=== PATIENT | female | born 1960 | race Asian ===

== ENCOUNTER 2022-06-08 07:33 | Emergency (ER) | payer MEDICARE, MEDICAID ==
[~2022-06-08] VITALS: Ht 152.4 cm; Wt 86.8 kg
[2022-06-08 14:54] VITALS: BP 159/69
[2022-06-10] MEDS ORDERED: CLOZ100T PO (11:38)
[2022-06-10] MEDS ORDERED: POTA-79 PO (11:38)
== END 2022-06-08 14:57 | disposition home or self-care (01) ==
LOC: EMS 07:35
DX: S00.83XA Contusion of other part of head, initial encounter (principal); E11.9 Type 2 diabetes mellitus without complications; Z88.2 Allergy status to sulfonamides; Z88.0 Allergy status to penicillin; Y04.8XXA Assault by other bodily force, initial encounter; Y93.89 Activity, other specified; Y92.89 Other specified places as the place of occurrence of the external cause; Y99.8 Other external cause status
CPT/HCPCS: 70450; 70486; 72125; 99284

== ENCOUNTER 2022-06-10 10:36 | Inpatient (IN) | payer MEDICARE, MEDICAID ==
[~2022-06-10] VITALS: Ht 160 cm; Wt 70.6 kg
[2022-06-10] MEDS ORDERED: DiphenhydrAMINE HCL 50 MG/ML VIAL IM ONE (10:45)
[2022-06-10] MEDS ORDERED: HALOPERIDOL LACTATE 5 MG/ML VIAL IM ONE (10:45)
[2022-06-10] MEDS ORDERED: LORazepam 2 MG/ML VIAL IM ONE (10:45)
[2022-06-10 11:10] LABS: GLUCOSE,POINT OF CARE 148 MG/DL (70-110)
[2022-06-10] MEDS ORDERED: CLOZ100T61 PO (11:38)
[2022-06-10] MEDS ORDERED: METF-1211 PO (11:38)
[2022-06-10] MEDS ORDERED: POTA-364 PO (11:38)
[2022-06-10] MEDS ORDERED: ATOR10TA PO (11:38)
[2022-06-10] MEDS ORDERED: AMLO-257 PO (11:38)
[2022-06-10] MEDS ORDERED: ALPR-705 PO (11:38)
[2022-06-10 12:24] LABS: COVID AG,FIA SOURCE NASOPHARYNGEAL
[2022-06-10 12:47] LABS: SARS-COV2 (COVID) ANTIGEN,FIA Negative (Negative)
[2022-06-10 14:05] LABS: BASOPHILS % (AUTO) 1.4 % (0.0-2.0); HEMATOCRIT 46.1 % (36-46); HEMOGLOBIN 15.1 g/dL (12.0-16.0); LYMPHOCYTES # (AUTO) 2.3 K/uL (1.0-4.8); LYMPHOCYTES % (AUTO) 26.8 % (22.0-44.0); MEAN CORPUSCULAR HEMOGLOBIN 29.3 pg (26.0-34.0); MEAN CORPUSCULAR HGB CONC 32.7 G/dL (31.0-37.0); MEAN CORPUSCULAR VOLUME 89 fL (80-100); MONOCYTES # (AUTO) 0.7 K/uL (0.1-1.0); MONOCYTES % (AUTO) 7.9 % (2.0-9.0); NEUTROPHILS # (AUTO) 5.3 K/uL (1.8-7.7); NEUTROPHILS % (AUTO) 62.9 % (40.0-70.0); PLATELET COUNT (AUTO) 201 K/uL (150-450); RED BLOOD CELL COUNT(AUTO) 5.16 MIL/uL (4.00-5.20); RED CELL DISTRIBUTION WIDTH 14.6 % (11.5-14.5); WHITE BLOOD COUNT (AUTO) 8.5 K/uL (4.5-11.0)
[2022-06-10 14:12] LABS: ANION GAP 12 mmol/L (8-16); CALCIUM, TOTAL 9.7 mg/dL (8.8-10.5); CARBON DIOXIDE 26 mmol/L (22-29); CHLORIDE 105 mmol/L (98-107); CREATININE 0.74 mg/dL (0.60-1.30); GLOMERULAR FILTR. RATE CALC > 60 mL/min (>60); GLUCOSE,RANDOM 135 mg/dL (70-110); POTASSIUM 3.3 mmol/L (3.5-5.1); SODIUM SERUM 143 mmol/L (136-145); UREA NITROGEN, BLOOD 13 mg/dL (7-18)
[2022-06-10 14:17] LABS: ALCOHOL, BLOOD (SERUM) < 3 mg/dL (0-10)
[2022-06-10 14:26] LABS: ALANINE AMINOTRANSFERASE 55 U/L (12-78); ALBUMIN 4.3 g/dL (3.4-5.0); ALKALINE PHOSPHATASE 93 U/L (46-116); ASPARTATE AMINOTRANSFERASE 23 U/L (15-37); BILIRUBIN,TOTAL 0.5 mg/dL (0.1-1.0); THYROID STIMULATING HORMONE 2.96 uIU/mL (0.36-3.74); TOTAL PROTEIN, SERUM 8.2 g/dL (6.4-8.2)
[2022-06-10] MEDS ORDERED: POTASSIUM CHLORIDE 20 MEQ ER TABLET PO ONE (15:15)
[2022-06-11 15:38] LABS: APPEARANCE,URINE CLEAR (CLEAR); BILIRUBIN,URINE NEGATIVE (NEGATIVE); COLOR,URINE LIGHT YELLOW (YELLOW); GLUCOSE, URINE (UA) TRACE mg/dL (NEGATIVE); LEUKOCYTE ESTERASE ,URINE NEGATIVE (NEGATIVE); NITRATE,URINE NEGATIVE (NEGATIVE); OCCULT BLOOD,URINE NEGATIVE (NEGATIVE); PH,URINE 6.5 (5.0-8.0); PH,URINE DRUG SCREEN 6.5 (5.0-8.0); PROTEIN,URINE 30-70 mg/dL (NEGATIVE); SPECIFIC GRAVITIY, URINE 1.013 (1.003-1.030); UROBILINOGEN,URINE <=1.0 mg/dL (<=1.0)
[2022-06-11 15:43] LABS: BACTERIA,URINE None Seen /HPF (None Seen); RBC,URINE None Seen /HPF (0-2); WBC,URINE None Seen /HPF (0-5)
[2022-06-11 15:45] LABS: ALCOHOL, URINE DRUG SCREEN NEGATIVE (NEGATIVE); AMPHET/METH SCREEN,URINE NEGATIVE (NEGATIVE); BARBITURATE SCREEN, URINE NEGATIVE (NEGATIVE); BENZODIAZEPINES SCREEN,URINE NEGATIVE (NEGATIVE); CANNABINOID SCREEN,URINE NEGATIVE (NEGATIVE); COCAINE SCREEN,URINE NEGATIVE (NEGATIVE); METHADONE SCREEN, URINE NEGATIVE (NEGATIVE); OPIATE SCREEN,URINE NEGATIVE (NEGATIVE); PHENCYCLIDINE SCREEN,URINE NEGATIVE (NEGATIVE)
[2022-06-11 20:23] VITALS: RESP 20
[2022-06-12 05:40] VITALS: RESP 20
[2022-06-12] MEDS: LORazepam 2 MG TABLET PO PRN (06:12)
[2022-06-12] MEDS: HALOPERIDOL 5 MG TABLET PO PRN (06:12)
[2022-06-12 08:21] VITALS: BP 131/74; PULSE 82; RESP 18; TEMP 98.1
[2022-06-12 12:34] VITALS: TEMP 97.5
[2022-06-12] MEDS ORDERED: MAG HYDROX/AL HYDROX/SIMETH ES 30 ML SUSPENSION UDCUP PO PRN (13:30)
[2022-06-12] MEDS ORDERED: GuaiFENesin/D-METHORPHAN [SUGAR-FREE] 200-20MG/10 ML SYRUP UDCUP PO PRN (13:30)
[2022-06-12] MEDS ORDERED: PETROLATUM,WHITE 28 GM JELLY TP PRN (13:30)
[2022-06-12] MEDS ORDERED: IBUPROFEN 400 MG TABLET PO PRN (13:30)
[2022-06-12] MEDS ORDERED: DOCUSATE SODIUM 100 MG CAPSULE PO PRN (13:30)
[2022-06-12] MEDS ORDERED: ALBUTEROL SULFATE HFA 90 MCG/PUFF 8 GM INHALER IH PRN (13:30)
[2022-06-12] MEDS ORDERED: LOPERAMIDE HCL 2 MG CAPSULE PO PRN (13:30)
[2022-06-12] MEDS ORDERED: ONDANSETRON HCL 4 MG TABLET PO PRN (13:30)
[2022-06-12] MEDS ORDERED: NICOTINE 14 MG/24 HOUR PATCH TD PRN (13:30)
[2022-06-12 16:02] VITALS: BP 129/88; PULSE 88; RESP 18; TEMP 97
[2022-06-12 16:15] VITALS: BP 129/88; PULSE 88; RESP 18; TEMP 97
[2022-06-12] MEDS: MetFORMIN HCL 500 MG TABLET PO SCH ×2 (17:11→17:24)
[2022-06-12 20:20] VITALS: RESP 18; TEMP 98
[2022-06-12] MEDS: RisperiDONE 2 MG TABLET PO SCH (21:00)
[2022-06-13 00:33] VITALS: RESP 18
[2022-06-13 05:08] VITALS: RESP 18; TEMP 98.2
[2022-06-13] MEDS: MetFORMIN HCL 500 MG TABLET PO SCH ×2 (07:16→17:30)
[2022-06-13 08:15] VITALS: BP 158/92; PULSE 85; RESP 18; TEMP 97.6
[2022-06-13] MEDS: AmLODIPine BESYLATE 5 MG TABLET PO SCH (09:20)
[2022-06-13] MEDS: ATORVASTATIN CALCIUM 10 MG TABLET PO SCH (09:20)
[2022-06-13] MEDS: RisperiDONE 2 MG TABLET PO SCH ×2 (09:20→21:10)
[2022-06-13 12:15] VITALS: TEMP 97.4
[2022-06-13 17:14] VITALS: BP 142/69; PULSE 82; RESP 17; TEMP 97.9
[2022-06-13 20:22] VITALS: BP 143/81; PULSE 84; RESP 18; TEMP 97.3
[2022-06-14] VITALS (9 sets, daily range): BP systolic 135; BP diastolic 80; PULSE 88; RESP 17–20; TEMP 97.8–98
[2022-06-14] MEDS ORDERED: HALOPERIDOL LACTATE 5 MG/ML VIAL IM ONE (02:00)
[2022-06-14] MEDS ORDERED: DiphenhydrAMINE HCL 50 MG/ML VIAL IM ONE (02:00)
[2022-06-14] MEDS ORDERED: LORazepam 2 MG/ML VIAL IM ONE (02:00)
[2022-06-14] MEDS: MetFORMIN HCL 500 MG TABLET PO SCH ×2 (06:57→16:26)
[2022-06-14] MEDS: AmLODIPine BESYLATE 5 MG TABLET PO SCH (09:00)
[2022-06-14] MEDS: ATORVASTATIN CALCIUM 10 MG TABLET PO SCH (09:00)
[2022-06-14] MEDS: RisperiDONE 2 MG TABLET PO SCH ×2 (09:00→21:00)
[2022-06-15 00:39] VITALS: RESP 20
[2022-06-15 04:23] VITALS: RESP 18
[2022-06-15] MEDS: MetFORMIN HCL 500 MG TABLET PO SCH ×2 (06:43→16:42)
[2022-06-15 08:25] VITALS: PULSE 65; RESP 17; TEMP 97.8
[2022-06-15] MEDS: RisperiDONE 2 MG TABLET PO SCH ×2 (08:31→20:24)
[2022-06-15] MEDS: AmLODIPine BESYLATE 5 MG TABLET PO SCH (08:31)
[2022-06-15] MEDS: ATORVASTATIN CALCIUM 10 MG TABLET PO SCH (08:31)
[2022-06-15 12:07] VITALS: RESP 18; TEMP 97.6
[2022-06-15 16:08] VITALS: RESP 17
[2022-06-15 20:27] VITALS: RESP 20
[2022-06-16] VITALS (7 sets, daily range): BP systolic 132; BP diastolic 78; PULSE 82; RESP 17–22; TEMP 97.8–98.3
[2022-06-16] MEDS ORDERED: LORazepam 2 MG/ML VIAL IM ONE (03:15)
[2022-06-16] MEDS ORDERED: DiphenhydrAMINE HCL 50 MG/ML VIAL IM ONE (03:15)
[2022-06-16] MEDS ORDERED: HALOPERIDOL LACTATE 5 MG/ML VIAL IM ONE (03:15)
[2022-06-16] MEDS: MetFORMIN HCL 500 MG TABLET PO SCH ×2 (07:30→16:10)
[2022-06-16 07:50] LABS: COVID AG,FIA SOURCE NASOPHARYNGEAL
[2022-06-16 08:26] LABS: SARS-COV2 (COVID) ANTIGEN,FIA Negative (Negative)
[2022-06-16] MEDS: AmLODIPine BESYLATE 5 MG TABLET PO SCH (09:00)
[2022-06-16] MEDS: ATORVASTATIN CALCIUM 10 MG TABLET PO SCH (09:00)
[2022-06-16] MEDS: RisperiDONE 2 MG TABLET PO SCH ×2 (09:00→20:31)
[2022-06-17 04:26] VITALS: RESP 18
[2022-06-17] MEDS: MetFORMIN HCL 500 MG TABLET PO SCH ×3 (06:40→16:47)
[2022-06-17] MEDS: RisperiDONE 2 MG TABLET PO SCH ×3 (08:22→21:00)
[2022-06-17] MEDS: ATORVASTATIN CALCIUM 10 MG TABLET PO SCH ×2 (08:22→09:00)
[2022-06-17] MEDS: AmLODIPine BESYLATE 5 MG TABLET PO SCH ×2 (08:22→09:00)
[2022-06-17 09:05] VITALS: RESP 18; TEMP 97.6
[2022-06-17 13:03] VITALS: RESP 16; TEMP 98
[2022-06-17 16:02] VITALS: RESP 18
[2022-06-17 20:24] VITALS: RESP 18; TEMP 98.5
[2022-06-18 00:44] VITALS: RESP 18
[2022-06-18 04:38] VITALS: RESP 18
[2022-06-18] MEDS: MetFORMIN HCL 500 MG TABLET PO SCH ×2 (06:53→17:30)
[2022-06-18] MEDS ORDERED: DiphenhydrAMINE HCL 50 MG/ML VIAL IM ONE (08:30)
[2022-06-18] MEDS ORDERED: HALOPERIDOL LACTATE 5 MG/ML VIAL IM ONE (08:30)
[2022-06-18] MEDS ORDERED: LORazepam 2 MG/ML VIAL IM ONE (08:30)
[2022-06-18 08:54] VITALS: BP 148/82; PULSE 98; RESP 18; TEMP 97.8
[2022-06-18] MEDS: RisperiDONE 2 MG TABLET PO SCH ×2 (08:56→20:12)
[2022-06-18] MEDS: AmLODIPine BESYLATE 5 MG TABLET PO SCH (08:56)
[2022-06-18] MEDS: ATORVASTATIN CALCIUM 10 MG TABLET PO SCH (08:56)
[2022-06-18 12:41] VITALS: TEMP 97.6
[2022-06-18 16:18] VITALS: BP 123/72; PULSE 73; RESP 17; TEMP 97.3
[2022-06-18 20:28] VITALS: RESP 20
[2022-06-19 01:26] VITALS: RESP 20
[2022-06-19 04:06] VITALS: RESP 20
[2022-06-19] MEDS: MetFORMIN HCL 500 MG TABLET PO SCH ×2 (07:30→17:26)
[2022-06-19 08:37] VITALS: BP 157/96; PULSE 65; RESP 18; TEMP 97.8
[2022-06-19] MEDS: AmLODIPine BESYLATE 5 MG TABLET PO SCH (08:45)
[2022-06-19] MEDS: RisperiDONE 2 MG TABLET PO SCH ×2 (08:45→21:00)
[2022-06-19] MEDS: ATORVASTATIN CALCIUM 10 MG TABLET PO SCH (08:45)
[2022-06-19 12:20] VITALS: TEMP 98
[2022-06-19] MEDS ORDERED: DiphenhydrAMINE HCL 50 MG/ML VIAL IM ONE (15:45)
[2022-06-19] MEDS ORDERED: HALOPERIDOL LACTATE 5 MG/ML VIAL IM ONE (15:45)
[2022-06-19] MEDS ORDERED: LORazepam 2 MG/ML VIAL IM ONE (15:45)
[2022-06-19 20:23] VITALS: BP 141/77; PULSE 82; RESP 20; TEMP 97.9
[2022-06-20 00:08] VITALS: RESP 18
[2022-06-20 04:01] VITALS: RESP 18
[2022-06-20] MEDS: MetFORMIN HCL 500 MG TABLET PO SCH ×2 (07:30→16:08)
[2022-06-20] MEDS: AmLODIPine BESYLATE 5 MG TABLET PO SCH (08:05)
[2022-06-20] MEDS: RisperiDONE 2 MG TABLET PO SCH ×2 (08:05→20:19)
[2022-06-20] MEDS: ATORVASTATIN CALCIUM 10 MG TABLET PO SCH (08:05)
[2022-06-20 12:55] VITALS: RESP 17; TEMP 97.8
[2022-06-20] MEDS ORDERED: RisperiDONE 2 MG TABLET PO ONE (14:15)
[2022-06-20] MEDS: HALOPERIDOL LACTATE 5 MG/ML VIAL IM PRN ×2 (14:31→20:20)
[2022-06-20 16:09] VITALS: RESP 17; TEMP 98
[2022-06-20 21:08] VITALS: TEMP 98
[2022-06-21] VITALS (8 sets, daily range): BP systolic 114–155; BP diastolic 74–90; PULSE 98–125; RESP 18–20; TEMP 97.6–98.5; O2SAT 98
[2022-06-21] MEDS: MetFORMIN HCL 500 MG TABLET PO SCH ×2 (06:39→17:56)
[2022-06-21] MEDS: ATORVASTATIN CALCIUM 10 MG TABLET PO SCH ×2 (08:46→09:44)
[2022-06-21] MEDS: RisperiDONE 2 MG TABLET PO SCH ×2 (08:46→20:56)
[2022-06-21] MEDS: AmLODIPine BESYLATE 5 MG TABLET PO SCH (08:46)
[2022-06-21] MEDS: HALOPERIDOL 5 MG TABLET PO PRN (09:28)
[2022-06-21] MEDS: HALOPERIDOL LACTATE 5 MG/ML VIAL IM PRN (20:59)
[2022-06-21] MEDS ORDERED: LORazepam 2 MG/ML VIAL IM ONE (23:45)
[2022-06-21] MEDS ORDERED: DiphenhydrAMINE HCL 50 MG/ML VIAL IM ONE (23:45)
[2022-06-21] MEDS ORDERED: HALOPERIDOL LACTATE 5 MG/ML VIAL IM ONE (23:45)
[2022-06-21] MEDS ORDERED: DiphenhydrAMINE HCL 50 MG/ML VIAL ONE (23:48)
[2022-06-21] MEDS ORDERED: LORazepam 2 MG/ML VIAL ONE (23:48)
[2022-06-22] MEDS: MetFORMIN HCL 500 MG TABLET PO SCH ×2 (06:37→17:30)
[2022-06-22 08:04] VITALS: BP 143/78; PULSE 79; RESP 18; TEMP 97.4
[2022-06-22] MEDS: AmLODIPine BESYLATE 5 MG TABLET PO SCH (08:15)
[2022-06-22] MEDS: RisperiDONE 2 MG TABLET PO SCH ×2 (08:16→21:07)
[2022-06-22] MEDS: ATORVASTATIN CALCIUM 10 MG TABLET PO SCH (08:16)
[2022-06-22 09:19] VITALS: BP 143/78; PULSE 81; TEMP 97.4; O2SAT 16
[2022-06-23] MEDS: MetFORMIN HCL 500 MG TABLET PO SCH ×2 (06:36→17:30)
[2022-06-23 08:05] VITALS: BP 144/59; PULSE 81; RESP 18; TEMP 97.1
[2022-06-23] MEDS: RisperiDONE 2 MG TABLET PO SCH ×2 (08:27→20:19)
[2022-06-23] MEDS: AmLODIPine BESYLATE 5 MG TABLET PO SCH (08:27)
[2022-06-23] MEDS: ATORVASTATIN CALCIUM 10 MG TABLET PO SCH (08:27)
[2022-06-23] MEDS: HALOPERIDOL LACTATE 5 MG/ML VIAL IM PRN (20:19)
[2022-06-23 22:38] VITALS: RESP 20
[2022-06-24] MEDS: MetFORMIN HCL 500 MG TABLET PO SCH ×2 (06:42→17:29)
[2022-06-24 08:09] VITALS: BP 164/94; PULSE 86; RESP 18; TEMP 97.1
[2022-06-24] MEDS: ATORVASTATIN CALCIUM 10 MG TABLET PO SCH (08:17)
[2022-06-24] MEDS: AmLODIPine BESYLATE 5 MG TABLET PO SCH (08:17)
[2022-06-24] MEDS: RisperiDONE 2 MG TABLET PO SCH ×2 (08:17→20:52)
[2022-06-24 15:42] LABS: GLUCOMETER DEV NAME(LOC) 3EX.2; GLUCOSE,POINT OF CARE 180 MG/DL (70-110)
[2022-06-24 16:53] LABS: BASOPHILS % (AUTO) 0.5 % (0.0-2.0); EOSINOPHILS % (AUTO) 0.3 % (1.0-6.0); HEMATOCRIT 42.8 % (36-46); HEMOGLOBIN 13.9 g/dL (12.0-16.0); MEAN CORPUSCULAR HEMOGLOBIN 29.1 pg (26.0-34.0); MEAN CORPUSCULAR HGB CONC 32.5 G/dL (31.0-37.0); MEAN CORPUSCULAR VOLUME 90 fL (80-100); MONOCYTES # (AUTO) 0.5 K/uL (0.1-1.0); MONOCYTES % (AUTO) 6.7 % (2.0-9.0); NEUTROPHILS # (AUTO) 6.1 K/uL (1.8-7.7); NEUTROPHILS % (AUTO) 79.5 % (40.0-70.0); PLATELET COUNT (AUTO) 211 K/uL (150-450); RED BLOOD CELL COUNT(AUTO) 4.77 MIL/uL (4.00-5.20); RED CELL DISTRIBUTION WIDTH 14.7 % (11.5-14.5); WHITE BLOOD COUNT (AUTO) 7.6 K/uL (4.5-11.0)
[2022-06-24 17:04] LABS: ANION GAP 15 mmol/L (8-16); CALCIUM, TOTAL 8.8 mg/dL (8.8-10.5); CARBON DIOXIDE 23 mmol/L (22-29); CHLORIDE 100 mmol/L (98-107); CREATININE 0.92 mg/dL (0.60-1.30); GLOMERULAR FILTR. RATE CALC > 60 mL/min (>60); GLUCOSE,RANDOM 307 mg/dL (70-110); POTASSIUM 3.1 mmol/L (3.5-5.1); SODIUM SERUM 138 mmol/L (136-145); UREA NITROGEN, BLOOD 8 mg/dL (7-18)
[2022-06-24 17:08] LABS: APPEARANCE,URINE HAZY (CLEAR); BILIRUBIN,URINE NEGATIVE (NEGATIVE); COLOR,URINE LIGHT YELLOW (YELLOW); GLUCOSE, URINE (UA) >=1000 mg/dL (NEGATIVE); KETONES,URINE 40-60 mg/dL (NEGATIVE); LEUKOCYTE ESTERASE ,URINE LARGE (NEGATIVE); NITRATE,URINE NEGATIVE (NEGATIVE); OCCULT BLOOD,URINE NEGATIVE (NEGATIVE); PROTEIN,URINE 100-200,SEE CONFIRM mg/dL (NEGATIVE); SPECIFIC GRAVITIY, URINE 1.009 (1.003-1.030); UROBILINOGEN,URINE <=1.0 mg/dL (<=1.0)
[2022-06-24 17:14] LABS: ALANINE AMINOTRANSFERASE 62 U/L (12-78); ALBUMIN 3.5 g/dL (3.4-5.0); ALKALINE PHOSPHATASE 94 U/L (46-116); ASPARTATE AMINOTRANSFERASE 40 U/L (15-37); BILIRUBIN,TOTAL 0.6 mg/dL (0.1-1.0); TOTAL PROTEIN, SERUM 7.2 g/dL (6.4-8.2)
[2022-06-24 17:42] LABS: GLUCOMETER DEV NAME(LOC) 3EX.2; GLUCOSE,POINT OF CARE 281 MG/DL (70-110)
[2022-06-24 17:53] LABS: BACTERIA,URINE Many /HPF (None Seen); RBC,URINE 0-2 /HPF (0-2); SQUAMOUS EPITHELIAL CELL,UR Moderate /LPF (None Seen); SULFOSALICYLIC ACID,URINE 3+ (Negative); WBC,URINE 26-50 /HPF (0-5)
[2022-06-24] MEDS: NYSTATIN 30 GM CREAM TP SCH (18:26)
[2022-06-24] MEDS: POTASSIUM CHLORIDE 20 MEQ ER TABLET PO ONE ×3 (18:38→18:55)
[2022-06-24] MEDS: LEVOFLOXACIN 500 MG TABLET PO SCH (18:45)
[2022-06-24 21:00] VITALS: RESP 18
[2022-06-24] MEDS: HALOPERIDOL LACTATE 5 MG/ML VIAL IM PRN (21:00)
[2022-06-25] MEDS: MetFORMIN HCL 500 MG TABLET PO SCH ×2 (06:54→17:30)
[2022-06-25] MEDS: AmLODIPine BESYLATE 5 MG TABLET PO SCH (07:56)
[2022-06-25] MEDS: NYSTATIN 30 GM CREAM TP SCH ×2 (07:56→17:25)
[2022-06-25] MEDS: ATORVASTATIN CALCIUM 10 MG TABLET PO SCH (07:56)
[2022-06-25] MEDS: RisperiDONE 2 MG TABLET PO SCH ×2 (07:56→20:45)
[2022-06-25] MEDS: HALOPERIDOL LACTATE 5 MG/ML VIAL IM PRN ×2 (07:58→20:49)
[2022-06-25 08:04] VITALS: TEMP 98
[2022-06-25] MEDS: LEVOFLOXACIN 500 MG TABLET PO SCH (08:54)
[2022-06-25 17:26] LABS: GLUCOMETER DEV NAME(LOC) 3EX.2; GLUCOSE,POINT OF CARE 114 MG/DL (70-110)
[2022-06-25 20:31] VITALS: RESP 18; TEMP 98
[2022-06-26] MEDS: MetFORMIN HCL 500 MG TABLET PO SCH ×2 (06:39→17:30)
[2022-06-26 07:06] LABS: GLUCOMETER DEV NAME(LOC) 3EX.2; GLUCOSE,POINT OF CARE 180 MG/DL (70-110)
[2022-06-26 08:25] VITALS: BP 150/99; PULSE 80; RESP 17; TEMP 97.6
[2022-06-26] MEDS: RisperiDONE 2 MG TABLET PO SCH ×2 (15:38→20:28)
[2022-06-26] MEDS: ATORVASTATIN CALCIUM 10 MG TABLET PO SCH (15:39)
[2022-06-26] MEDS: AmLODIPine BESYLATE 5 MG TABLET PO SCH (15:39)
[2022-06-26] MEDS: NYSTATIN 30 GM CREAM TP SCH ×2 (15:47→18:21)
[2022-06-26] MEDS: LEVOFLOXACIN 500 MG TABLET PO SCH (15:48)
[2022-06-26 19:01] LABS: GLUCOMETER DEV NAME(LOC) 3EX.2; GLUCOSE,POINT OF CARE 138 MG/DL (70-110)
[2022-06-26] MEDS: HALOPERIDOL LACTATE 5 MG/ML VIAL IM PRN (20:35)
[2022-06-26 20:42] VITALS: BP 130/85; PULSE 80; RESP 18; TEMP 98
[2022-06-27] MEDS: MetFORMIN HCL 500 MG TABLET PO SCH ×2 (06:39→17:24)
[2022-06-27 07:21] LABS: GLUCOMETER DEV NAME(LOC) 3EX.2; GLUCOSE,POINT OF CARE 140 MG/DL (70-110)
[2022-06-27 08:17] VITALS: BP 157/74; PULSE 86; RESP 17; TEMP 98.1
[2022-06-27] MEDS: AmLODIPine BESYLATE 5 MG TABLET PO SCH (09:00)
[2022-06-27] MEDS: NYSTATIN 30 GM CREAM TP SCH ×2 (09:00→17:15)
[2022-06-27] MEDS: LEVOFLOXACIN 500 MG TABLET PO SCH (09:00)
[2022-06-27] MEDS: ATORVASTATIN CALCIUM 10 MG TABLET PO SCH (09:00)
[2022-06-27] MEDS: RisperiDONE 2 MG TABLET PO SCH ×2 (09:00→21:00)
[2022-06-27 17:41] LABS: GLUCOMETER DEV NAME(LOC) 3EX.2; GLUCOSE,POINT OF CARE 121 MG/DL (70-110)
[2022-06-28 05:56] LABS: GLUCOMETER DEV NAME(LOC) 3EX.2; GLUCOSE,POINT OF CARE 146 MG/DL (70-110)
[2022-06-28] MEDS: MetFORMIN HCL 500 MG TABLET PO SCH ×2 (07:01→17:01)
[2022-06-28 08:31] VITALS: BP 130/60; PULSE 77; RESP 17; TEMP 97.3
[2022-06-28] MEDS: NYSTATIN 30 GM CREAM TP SCH ×2 (09:00→17:00)
[2022-06-28] MEDS: RisperiDONE 2 MG TABLET PO SCH ×2 (09:00→21:00)
[2022-06-28] MEDS: AmLODIPine BESYLATE 5 MG TABLET PO SCH (09:00)
[2022-06-28] MEDS: ATORVASTATIN CALCIUM 10 MG TABLET PO SCH (09:00)
[2022-06-28] MEDS: LEVOFLOXACIN 500 MG TABLET PO SCH (09:00)
[2022-06-28 20:19] VITALS: RESP 20
[2022-06-28 21:06] LABS: GLUCOMETER DEV NAME(LOC) 3EX.2; GLUCOSE,POINT OF CARE 139 MG/DL (70-110)
[2022-06-29] MEDS: MetFORMIN HCL 500 MG TABLET PO SCH ×2 (07:04→17:30)
[2022-06-29 08:55] VITALS: BP 167/87; PULSE 100; RESP 17; TEMP 98
[2022-06-29] MEDS: ATORVASTATIN CALCIUM 10 MG TABLET PO SCH (09:00)
[2022-06-29] MEDS: AmLODIPine BESYLATE 5 MG TABLET PO SCH (09:00)
[2022-06-29] MEDS: NYSTATIN 30 GM CREAM TP SCH ×3 (09:00→18:06)
[2022-06-29] MEDS: RisperiDONE 2 MG TABLET PO SCH ×2 (09:00→20:54)
[2022-06-29] MEDS: LEVOFLOXACIN 500 MG TABLET PO SCH (09:00)
[2022-06-29 17:51] LABS: GLUCOMETER DEV NAME(LOC) 3E.C; GLUCOSE,POINT OF CARE 108 MG/DL (70-110)
[2022-06-29 20:53] VITALS: RESP 18
[2022-06-30] MEDS: MetFORMIN HCL 500 MG TABLET PO SCH ×2 (06:41→17:30)
[2022-06-30] MEDS: ATORVASTATIN CALCIUM 10 MG TABLET PO SCH (08:08)
[2022-06-30] MEDS: AmLODIPine BESYLATE 5 MG TABLET PO SCH (08:08)
[2022-06-30] MEDS: NYSTATIN 30 GM CREAM TP SCH ×2 (08:09→17:15)
[2022-06-30] MEDS: RisperiDONE 2 MG TABLET PO SCH ×2 (08:09→21:00)
[2022-06-30 08:37] VITALS: BP 172/76; PULSE 75; RESP 17; TEMP 97.6
[2022-06-30] MEDS ORDERED: HALOPERIDOL LACTATE 5 MG/ML VIAL IM ONE (22:00)
[2022-06-30] MEDS ORDERED: DiphenhydrAMINE HCL 50 MG/ML VIAL IM ONE (22:00)
[2022-06-30] MEDS ORDERED: LORazepam 2 MG/ML VIAL IM ONE (22:00)
[2022-06-30 22:26] VITALS: RESP 20
[2022-07-01] MEDS: MetFORMIN HCL 500 MG TABLET PO SCH ×2 (07:04→17:30)
[2022-07-01] MEDS: NYSTATIN 30 GM CREAM TP SCH ×2 (08:17→17:00)
[2022-07-01] MEDS: RisperiDONE 2 MG TABLET PO SCH ×2 (08:17→21:00)
[2022-07-01] MEDS: ATORVASTATIN CALCIUM 10 MG TABLET PO SCH (08:17)
[2022-07-01] MEDS: AmLODIPine BESYLATE 5 MG TABLET PO SCH (08:17)
[2022-07-01 09:09] VITALS: BP 156/80; PULSE 75; RESP 18; TEMP 98.2
[2022-07-01 20:37] VITALS: BP 155/81; PULSE 87; RESP 18; TEMP 97.7
[2022-07-02] MEDS: MetFORMIN HCL 500 MG TABLET PO SCH ×2 (07:30→17:23)
[2022-07-02 08:29] VITALS: BP 168/73; PULSE 75; RESP 18; TEMP 98
[2022-07-02] MEDS: AmLODIPine BESYLATE 5 MG TABLET PO SCH (08:58)
[2022-07-02] MEDS: ATORVASTATIN CALCIUM 10 MG TABLET PO SCH (08:58)
[2022-07-02] MEDS: RisperiDONE 2 MG TABLET PO SCH ×2 (08:58→21:00)
[2022-07-02] MEDS: NYSTATIN 30 GM CREAM TP SCH ×2 (08:59→16:07)
[2022-07-02 20:55] VITALS: RESP 20
[2022-07-03] MEDS: MetFORMIN HCL 500 MG TABLET PO SCH ×2 (06:48→17:30)
[2022-07-03 08:21] VITALS: BP 150/90; PULSE 99; RESP 17; TEMP 97.9
[2022-07-03] MEDS: RisperiDONE 2 MG TABLET PO SCH ×2 (09:00→20:48)
[2022-07-03] MEDS: AmLODIPine BESYLATE 5 MG TABLET PO SCH (09:00)
[2022-07-03] MEDS: ATORVASTATIN CALCIUM 10 MG TABLET PO SCH (09:00)
[2022-07-03] MEDS ORDERED: LORazepam 2 MG/ML VIAL ONE (09:35)
[2022-07-03] MEDS ORDERED: DiphenhydrAMINE HCL 50 MG/ML VIAL ONE (09:36)
[2022-07-03] MEDS ORDERED: HALOPERIDOL LACTATE 5 MG/ML VIAL ONE (09:36)
[2022-07-03] MEDS ORDERED: DiphenhydrAMINE HCL 50 MG/ML VIAL IM ONE (09:45)
[2022-07-03] MEDS ORDERED: HALOPERIDOL LACTATE 5 MG/ML VIAL IM ONE (09:45)
[2022-07-03] MEDS ORDERED: LORazepam 2 MG/ML VIAL IM ONE (09:45)
[2022-07-03] MEDS: NYSTATIN 30 GM CREAM TP SCH ×2 (12:20→17:00)
[2022-07-03 16:56] LABS: GLUCOMETER DEV NAME(LOC) 3EX.2; GLUCOSE,POINT OF CARE 135 MG/DL (70-110)
[2022-07-03 20:56] VITALS: RESP 20
[2022-07-04] MEDS: MetFORMIN HCL 500 MG TABLET PO SCH ×2 (06:48→17:30)
[2022-07-04 08:01] VITALS: BP 170/84; PULSE 75; RESP 18; TEMP 98
[2022-07-04] MEDS: AmLODIPine BESYLATE 5 MG TABLET PO SCH (08:59)
[2022-07-04] MEDS: RisperiDONE 2 MG TABLET PO SCH ×2 (08:59→20:50)
[2022-07-04] MEDS: ATORVASTATIN CALCIUM 10 MG TABLET PO SCH (08:59)
[2022-07-04] MEDS: NYSTATIN 30 GM CREAM TP SCH ×2 (09:00→17:50)
[2022-07-04] MEDS ORDERED: RisperiDONE 2 MG TABLET PO ONE (12:00)
[2022-07-04] MEDS: HALOPERIDOL LACTATE 5 MG/ML VIAL IM PRN ×2 (12:16→20:54)
[2022-07-04 22:05] VITALS: BP 138/78; PULSE 78; RESP 19; TEMP 97.1
[2022-07-05] MEDS: MetFORMIN HCL 500 MG TABLET PO SCH ×2 (06:48→17:30)
[2022-07-05 08:10] VITALS: BP 157/81; PULSE 86; RESP 18; TEMP 97.2
[2022-07-05] MEDS: RisperiDONE 2 MG TABLET PO SCH ×2 (08:20→21:00)
[2022-07-05] MEDS: ATORVASTATIN CALCIUM 10 MG TABLET PO SCH (08:20)
[2022-07-05] MEDS: AmLODIPine BESYLATE 5 MG TABLET PO SCH (08:20)
[2022-07-05] MEDS: HALOPERIDOL LACTATE 5 MG/ML VIAL IM PRN ×2 (08:23→21:27)
[2022-07-05] MEDS: NYSTATIN 30 GM CREAM TP SCH ×2 (08:23→16:34)
[2022-07-05 13:27] LABS: GLUCOMETER DEV NAME(LOC) 3EX.2; GLUCOSE,POINT OF CARE 199 MG/DL (70-110)
[2022-07-05 16:36] LABS: GLUCOMETER DEV NAME(LOC) 3EX.2; GLUCOSE,POINT OF CARE 132 MG/DL (70-110)
[2022-07-05 20:57] VITALS: BP 131/77; PULSE 82; RESP 18; TEMP 97.9
[2022-07-06] MEDS: MetFORMIN HCL 500 MG TABLET PO SCH ×2 (06:46→17:29)
[2022-07-06] MEDS: RisperiDONE 2 MG TABLET PO SCH ×2 (09:00→20:35)
[2022-07-06] MEDS: AmLODIPine BESYLATE 5 MG TABLET PO SCH (09:00)
[2022-07-06] MEDS: ATORVASTATIN CALCIUM 10 MG TABLET PO SCH (09:00)
[2022-07-06] MEDS: NYSTATIN 30 GM CREAM TP SCH ×2 (09:48→17:00)
[2022-07-06 09:49] VITALS: BP 160/77; PULSE 96; RESP 18; TEMP 97.8
[2022-07-06] MEDS: HALOPERIDOL LACTATE 5 MG/ML VIAL IM PRN ×2 (09:50→20:45)
[2022-07-06 20:10] VITALS: BP 142/86; PULSE 88; RESP 20; TEMP 97.3
[2022-07-07] MEDS: MetFORMIN HCL 500 MG TABLET PO SCH ×2 (06:11→17:30)
[2022-07-07] MEDS: AmLODIPine BESYLATE 5 MG TABLET PO SCH ×2 (09:00→12:14)
[2022-07-07] MEDS: RisperiDONE 2 MG TABLET PO SCH ×2 (09:00→21:00)
[2022-07-07] MEDS: ATORVASTATIN CALCIUM 10 MG TABLET PO SCH (09:00)
[2022-07-07] MEDS: HALOPERIDOL LACTATE 5 MG/ML VIAL IM PRN ×2 (09:27→21:20)
[2022-07-07] MEDS: NYSTATIN 30 GM CREAM TP SCH ×2 (09:36→17:33)
[2022-07-07 12:14] VITALS: BP 189/85; PULSE 123; RESP 16; TEMP 97.6
[2022-07-07] MEDS: CloNIDine HCL 0.1 MG TABLET PO PRN (12:14)
[2022-07-07 13:00] VITALS: BP 187/82
[2022-07-07 15:00] VITALS: BP 155/83; RESP 17
[2022-07-07 15:41] LABS: GLUCOMETER DEV NAME(LOC) 3EX.2; GLUCOSE,POINT OF CARE 147 MG/DL (70-110)
[2022-07-07 17:53] VITALS: BP 149/95; PULSE 87; RESP 16
[2022-07-07 20:25] VITALS: BP 157/75; PULSE 78; RESP 18; TEMP 97.5
[2022-07-08 06:22] VITALS: BP 139/74; PULSE 70; RESP 18
[2022-07-08 06:36] LABS: GLUCOMETER DEV NAME(LOC) 3EX.2; GLUCOSE,POINT OF CARE 153 MG/DL (70-110)
[2022-07-08] MEDS: MetFORMIN HCL 500 MG TABLET PO SCH ×2 (06:39→17:17)
[2022-07-08 08:49] VITALS: BP 147/77; PULSE 76; RESP 18; TEMP 97.7
[2022-07-08] MEDS: ATORVASTATIN CALCIUM 10 MG TABLET PO SCH (08:52)
[2022-07-08] MEDS: NYSTATIN 30 GM CREAM TP SCH (08:52)
[2022-07-08] MEDS: RisperiDONE 2 MG TABLET PO SCH ×2 (08:52→20:37)
[2022-07-08] MEDS: AmLODIPine BESYLATE 5 MG TABLET PO SCH (08:52)
[2022-07-08] MEDS: HALOPERIDOL LACTATE 5 MG/ML VIAL IM PRN ×2 (09:51→20:43)
[2022-07-08 16:56] LABS: GLUCOMETER DEV NAME(LOC) 3EX.2; GLUCOSE,POINT OF CARE 119 MG/DL (70-110)
[2022-07-08 20:17] VITALS: RESP 20
[2022-07-09 06:21] LABS: GLUCOMETER DEV NAME(LOC) 3EX.2; GLUCOSE,POINT OF CARE 140 MG/DL (70-110)
[2022-07-09] MEDS: MetFORMIN HCL 500 MG TABLET PO SCH ×2 (07:30→17:30)
[2022-07-09 08:20] VITALS: BP 151/66; PULSE 91; RESP 18; TEMP 98.2
[2022-07-09] MEDS: RisperiDONE 2 MG TABLET PO SCH ×2 (08:30→20:48)
[2022-07-09] MEDS: ATORVASTATIN CALCIUM 10 MG TABLET PO SCH (08:30)
[2022-07-09] MEDS: HALOPERIDOL LACTATE 5 MG/ML VIAL IM PRN ×2 (08:43→21:21)
[2022-07-09] MEDS: AmLODIPine BESYLATE 5 MG TABLET PO SCH (08:45)
[2022-07-09 16:26] LABS: GLUCOMETER DEV NAME(LOC) 3EX.2; GLUCOSE,POINT OF CARE 119 MG/DL (70-110)
[2022-07-09 20:16] VITALS: RESP 20
[2022-07-10 06:26] LABS: GLUCOMETER DEV NAME(LOC) 3EX.2; GLUCOSE,POINT OF CARE 141 MG/DL (70-110)
[2022-07-10] MEDS: MetFORMIN HCL 500 MG TABLET PO SCH ×2 (07:05→16:37)
[2022-07-10 08:10] VITALS: BP 126/66; PULSE 73; RESP 17; TEMP 97.6
[2022-07-10] MEDS: HALOPERIDOL LACTATE 5 MG/ML VIAL IM PRN ×2 (08:56→20:40)
[2022-07-10] MEDS: AmLODIPine BESYLATE 5 MG TABLET PO SCH (09:00)
[2022-07-10] MEDS: RisperiDONE 2 MG TABLET PO SCH ×2 (09:00→20:35)
[2022-07-10] MEDS: ATORVASTATIN CALCIUM 10 MG TABLET PO SCH (09:00)
[2022-07-10 17:16] LABS: GLUCOMETER DEV NAME(LOC) 3EX.2; GLUCOSE,POINT OF CARE 184 MG/DL (70-110)
[2022-07-10 21:26] VITALS: BP 130/74; PULSE 75; RESP 17; TEMP 98
[2022-07-11] MEDS: MetFORMIN HCL 500 MG TABLET PO SCH ×2 (06:35→17:30)
[2022-07-11 07:16] LABS: GLUCOMETER DEV NAME(LOC) 3EX.2; GLUCOSE,POINT OF CARE 127 MG/DL (70-110)
[2022-07-11 08:27] VITALS: BP 170/87; PULSE 75; RESP 18; TEMP 97.6
[2022-07-11] MEDS: ATORVASTATIN CALCIUM 10 MG TABLET PO SCH (08:39)
[2022-07-11] MEDS: RisperiDONE 2 MG TABLET PO SCH ×2 (08:39→20:48)
[2022-07-11] MEDS: AmLODIPine BESYLATE 5 MG TABLET PO SCH (08:39)
[2022-07-11] MEDS: HALOPERIDOL LACTATE 5 MG/ML VIAL IM PRN ×2 (08:41→20:51)
[2022-07-11 11:41] LABS: GLUCOMETER DEV NAME(LOC) 3EX.2; GLUCOSE,POINT OF CARE 227 MG/DL (70-110)
[2022-07-11 16:46] LABS: GLUCOMETER DEV NAME(LOC) 3EX.2; GLUCOSE,POINT OF CARE 155 MG/DL (70-110)
[2022-07-11 17:30] VITALS: BP 181/89; PULSE 90; RESP 18
[2022-07-11] MEDS: CloNIDine HCL 0.1 MG TABLET PO PRN (17:39)
[2022-07-11 18:52] VITALS: BP 121/70; PULSE 77; RESP 18
[2022-07-11 21:19] VITALS: BP 133/74; PULSE 69; RESP 18; TEMP 97
[2022-07-12] MEDS: MetFORMIN HCL 500 MG TABLET PO SCH ×2 (06:38→17:30)
[2022-07-12 08:02] VITALS: BP 134/80; PULSE 83; RESP 18; TEMP 97.2
[2022-07-12] MEDS: RisperiDONE 2 MG TABLET PO SCH ×3 (08:26→21:00)
[2022-07-12] MEDS: ATORVASTATIN CALCIUM 10 MG TABLET PO SCH ×2 (08:26→08:29)
[2022-07-12] MEDS: AmLODIPine BESYLATE 5 MG TABLET PO SCH ×2 (08:26→09:00)
[2022-07-12] MEDS: HALOPERIDOL LACTATE 5 MG/ML VIAL IM PRN ×2 (09:13→21:11)
[2022-07-12 17:15] LABS: GLUCOMETER DEV NAME(LOC) 3EX.2; GLUCOSE,POINT OF CARE 122 MG/DL (70-110)
[2022-07-12 20:08] VITALS: BP 136/72; PULSE 76; RESP 18; TEMP 97.5
[2022-07-13 05:46] LABS: GLUCOMETER DEV NAME(LOC) 3EX.2; GLUCOSE,POINT OF CARE 175 MG/DL (70-110)
[2022-07-13] MEDS: MetFORMIN HCL 500 MG TABLET PO SCH ×2 (06:34→16:50)
[2022-07-13 08:10] VITALS: BP 138/72; PULSE 78; RESP 17; TEMP 97.1
[2022-07-13] MEDS: AmLODIPine BESYLATE 5 MG TABLET PO SCH (08:27)
[2022-07-13] MEDS: ATORVASTATIN CALCIUM 10 MG TABLET PO SCH (08:27)
[2022-07-13] MEDS: HALOPERIDOL LACTATE 5 MG/ML VIAL IM PRN ×2 (08:27→20:45)
[2022-07-13] MEDS: RisperiDONE 2 MG TABLET PO SCH ×2 (08:27→20:57)
[2022-07-13 16:31] LABS: GLUCOMETER DEV NAME(LOC) 3EX.2; GLUCOSE,POINT OF CARE 137 MG/DL (70-110)
[2022-07-13 21:38] VITALS: BP 131/75; PULSE 77; RESP 18; TEMP 97.6
[2022-07-14 05:36] LABS: GLUCOMETER DEV NAME(LOC) 3EX.2; GLUCOSE,POINT OF CARE 213 MG/DL (70-110)
[2022-07-14] MEDS: MetFORMIN HCL 500 MG TABLET PO SCH ×2 (06:33→17:30)
[2022-07-14] MEDS: RisperiDONE 2 MG TABLET PO SCH ×2 (08:55→20:11)
[2022-07-14] MEDS: AmLODIPine BESYLATE 5 MG TABLET PO SCH (08:55)
[2022-07-14] MEDS: ATORVASTATIN CALCIUM 10 MG TABLET PO SCH (08:55)
[2022-07-14] MEDS: HALOPERIDOL LACTATE 5 MG/ML VIAL IM PRN ×2 (09:03→20:14)
[2022-07-14 09:32] VITALS: BP 138/87; PULSE 73; RESP 17; TEMP 97.1
[2022-07-14 17:00] LABS: GLUCOMETER DEV NAME(LOC) 3EX.2; GLUCOSE,POINT OF CARE 179 MG/DL (70-110)
[2022-07-14 20:35] VITALS: RESP 20
[2022-07-15 06:06] LABS: GLUCOMETER DEV NAME(LOC) 3EX.2; GLUCOSE,POINT OF CARE 148 MG/DL (70-110)
[2022-07-15] MEDS: MetFORMIN HCL 500 MG TABLET PO SCH ×2 (06:36→16:55)
[2022-07-15] MEDS: AmLODIPine BESYLATE 5 MG TABLET PO SCH (08:37)
[2022-07-15] MEDS: ATORVASTATIN CALCIUM 10 MG TABLET PO SCH (08:37)
[2022-07-15] MEDS: RisperiDONE 2 MG TABLET PO SCH ×2 (08:37→20:15)
[2022-07-15 09:17] VITALS: BP 148/100; PULSE 82; RESP 16; TEMP 97.7
[2022-07-15 17:01] LABS: GLUCOMETER DEV NAME(LOC) 3EX.2; GLUCOSE,POINT OF CARE 140 MG/DL (70-110)
[2022-07-15 20:08] VITALS: BP 139/92; PULSE 78; RESP 18; TEMP 98.1
[2022-07-15] MEDS: HALOPERIDOL LACTATE 5 MG/ML VIAL IM PRN (20:19)
[2022-07-15] MEDS: LORazepam 2 MG TABLET PO PRN (20:55)
[2022-07-16 05:42] LABS: GLUCOMETER DEV NAME(LOC) 3EX.2; GLUCOSE,POINT OF CARE 154 MG/DL (70-110)
[2022-07-16] MEDS: MetFORMIN HCL 500 MG TABLET PO SCH ×2 (06:31→16:23)
[2022-07-16] MEDS: ATORVASTATIN CALCIUM 10 MG TABLET PO SCH (09:00)
[2022-07-16] MEDS: AmLODIPine BESYLATE 5 MG TABLET PO SCH (09:00)
[2022-07-16] MEDS: RisperiDONE 2 MG TABLET PO SCH ×2 (09:00→21:00)
[2022-07-16 09:17] VITALS: BP 145/81; PULSE 76; RESP 17; TEMP 97.6
[2022-07-16] MEDS: HALOPERIDOL LACTATE 5 MG/ML VIAL IM PRN ×2 (09:42→21:08)
[2022-07-16 16:26] LABS: GLUCOMETER DEV NAME(LOC) 3EX.2; GLUCOSE,POINT OF CARE 112 MG/DL (70-110)
[2022-07-16 20:03] VITALS: RESP 20
[2022-07-17 06:26] LABS: GLUCOMETER DEV NAME(LOC) 3EX.2; GLUCOSE,POINT OF CARE 129 MG/DL (70-110)
[2022-07-17] MEDS: MetFORMIN HCL 500 MG TABLET PO SCH ×2 (07:01→17:30)
[2022-07-17] MEDS: RisperiDONE 2 MG TABLET PO SCH ×2 (08:10→20:19)
[2022-07-17] MEDS: ATORVASTATIN CALCIUM 10 MG TABLET PO SCH (08:10)
[2022-07-17] MEDS: AmLODIPine BESYLATE 5 MG TABLET PO SCH (08:10)
[2022-07-17 08:17] VITALS: RESP 18
[2022-07-17] MEDS: HALOPERIDOL LACTATE 5 MG/ML VIAL IM PRN ×2 (08:37→20:34)
[2022-07-17 17:06] LABS: GLUCOMETER DEV NAME(LOC) 3EX.2; GLUCOSE,POINT OF CARE 114 MG/DL (70-110)
[2022-07-17 20:35] VITALS: RESP 18
[2022-07-17 20:44] VITALS: BP 142/90; PULSE 81; RESP 18; TEMP 98.2
[2022-07-18] MEDS: MetFORMIN HCL 500 MG TABLET PO SCH ×2 (06:34→16:41)
[2022-07-18 07:16] LABS: GLUCOMETER DEV NAME(LOC) 3EX.2; GLUCOSE,POINT OF CARE 138 MG/DL (70-110)
[2022-07-18] MEDS: ATORVASTATIN CALCIUM 10 MG TABLET PO SCH (07:42)
[2022-07-18] MEDS: RisperiDONE 2 MG TABLET PO SCH ×2 (07:42→20:31)
[2022-07-18] MEDS: AmLODIPine BESYLATE 5 MG TABLET PO SCH (07:42)
[2022-07-18] MEDS: HALOPERIDOL LACTATE 5 MG/ML VIAL IM PRN ×2 (07:45→20:47)
[2022-07-18 08:02] VITALS: BP 164/81; PULSE 82; RESP 18; TEMP 97.6
[2022-07-18 17:26] LABS: GLUCOMETER DEV NAME(LOC) 3EX.2; GLUCOSE,POINT OF CARE 176 MG/DL (70-110)
[2022-07-18 20:04] VITALS: RESP 18
[2022-07-19] MEDS: MetFORMIN HCL 500 MG TABLET PO SCH ×2 (06:57→16:51)
[2022-07-19 07:31] LABS: GLUCOMETER DEV NAME(LOC) 3EX.2; GLUCOSE,POINT OF CARE 161 MG/DL (70-110)
[2022-07-19 08:04] VITALS: BP 157/75; PULSE 105; RESP 19; TEMP 98
[2022-07-19] MEDS: ATORVASTATIN CALCIUM 10 MG TABLET PO SCH (09:00)
[2022-07-19] MEDS: RisperiDONE 2 MG TABLET PO SCH ×2 (09:00→20:37)
[2022-07-19] MEDS: AmLODIPine BESYLATE 5 MG TABLET PO SCH (09:00)
[2022-07-19] MEDS: HALOPERIDOL LACTATE 5 MG/ML VIAL IM PRN ×2 (09:29→20:29)
[2022-07-19 16:41] LABS: GLUCOMETER DEV NAME(LOC) 3EX.2; GLUCOSE,POINT OF CARE 147 MG/DL (70-110)
[2022-07-19] MEDS ORDERED: DiphenhydrAMINE HCL 50 MG/ML VIAL IM ONE (17:15)
[2022-07-19] MEDS ORDERED: LORazepam 2 MG/ML VIAL IM ONE (17:15)
[2022-07-19] MEDS ORDERED: HALOPERIDOL LACTATE 5 MG/ML VIAL IM ONE (17:15)
[2022-07-19 21:03] VITALS: RESP 18
[2022-07-20 06:26] LABS: GLUCOMETER DEV NAME(LOC) 3EX.2; GLUCOSE,POINT OF CARE 120 MG/DL (70-110)
[2022-07-20] MEDS: MetFORMIN HCL 500 MG TABLET PO SCH ×2 (06:44→17:30)
[2022-07-20] MEDS: RisperiDONE 2 MG TABLET PO SCH ×3 (09:00→20:36)
[2022-07-20] MEDS: ATORVASTATIN CALCIUM 10 MG TABLET PO SCH (09:00)
[2022-07-20] MEDS: AmLODIPine BESYLATE 5 MG TABLET PO SCH (09:00)
[2022-07-20 09:17] VITALS: TEMP 98
[2022-07-20] MEDS: HALOPERIDOL LACTATE 5 MG/ML VIAL IM PRN ×2 (09:29→20:35)
[2022-07-20 17:32] LABS: GLUCOMETER DEV NAME(LOC) 3EX.2; GLUCOSE,POINT OF CARE 105 MG/DL (70-110)
[2022-07-20 20:09] VITALS: BP 116/72; PULSE 62; RESP 18; TEMP 98.1
[2022-07-21] MEDS: MetFORMIN HCL 500 MG TABLET PO SCH ×2 (06:38→17:30)
[2022-07-21 06:46] LABS: GLUCOMETER DEV NAME(LOC) 3EX.2; GLUCOSE,POINT OF CARE 120 MG/DL (70-110)
[2022-07-21] MEDS: HALOPERIDOL LACTATE 5 MG/ML VIAL IM PRN ×2 (07:50→20:38)
[2022-07-21] MEDS: RisperiDONE 2 MG TABLET PO SCH ×2 (07:51→20:36)
[2022-07-21] MEDS: ATORVASTATIN CALCIUM 10 MG TABLET PO SCH (07:51)
[2022-07-21] MEDS: AmLODIPine BESYLATE 5 MG TABLET PO SCH (07:51)
[2022-07-21 08:10] VITALS: BP 117/57; PULSE 86; RESP 18; TEMP 97.6
[2022-07-21] MEDS: MAGNESIUM HYDROXIDE SUSPENSION 30 ML UDCUP PO PRN (15:05)
[2022-07-21 17:52] LABS: GLUCOMETER DEV NAME(LOC) 3EX.2; GLUCOSE,POINT OF CARE 113 MG/DL (70-110)
[2022-07-21 20:00] VITALS: BP 164/82; PULSE 80; RESP 18; TEMP 97.8
[2022-07-22 06:31] LABS: GLUCOMETER DEV NAME(LOC) 3EX.2; GLUCOSE,POINT OF CARE 129 MG/DL (70-110)
[2022-07-22] MEDS: MetFORMIN HCL 500 MG TABLET PO SCH ×2 (06:49→17:30)
[2022-07-22 08:08] VITALS: BP 159/62; PULSE 83; RESP 18; TEMP 98
[2022-07-22] MEDS: RisperiDONE 2 MG TABLET PO SCH ×2 (08:49→20:49)
[2022-07-22] MEDS: ATORVASTATIN CALCIUM 10 MG TABLET PO SCH (08:49)
[2022-07-22] MEDS: AmLODIPine BESYLATE 5 MG TABLET PO SCH (08:49)
[2022-07-22] MEDS: HALOPERIDOL LACTATE 5 MG/ML VIAL IM PRN ×2 (08:53→20:48)
[2022-07-22 17:27] LABS: GLUCOMETER DEV NAME(LOC) 3EX.2; GLUCOSE,POINT OF CARE 119 MG/DL (70-110)
[2022-07-22 20:29] VITALS: RESP 20
[2022-07-23 06:21] LABS: GLUCOMETER DEV NAME(LOC) 3EX.2; GLUCOSE,POINT OF CARE 106 MG/DL (70-110)
[2022-07-23] MEDS: MetFORMIN HCL 500 MG TABLET PO SCH ×2 (07:06→16:22)
[2022-07-23] MEDS: AmLODIPine BESYLATE 5 MG TABLET PO SCH (08:10)
[2022-07-23] MEDS: RisperiDONE 2 MG TABLET PO SCH ×2 (08:10→20:23)
[2022-07-23] MEDS: ATORVASTATIN CALCIUM 10 MG TABLET PO SCH (08:10)
[2022-07-23 08:44] VITALS: RESP 20
[2022-07-23 16:41] LABS: GLUCOMETER DEV NAME(LOC) 3EX.2; GLUCOSE,POINT OF CARE 116 MG/DL (70-110)
[2022-07-23 20:09] VITALS: RESP 20
[2022-07-23 20:16] LABS: GLUCOMETER DEV NAME(LOC) 3EX.2; GLUCOSE,POINT OF CARE 189 MG/DL (70-110)
[2022-07-23] MEDS: HALOPERIDOL LACTATE 5 MG/ML VIAL IM PRN (20:24)
[2022-07-24 06:16] LABS: GLUCOMETER DEV NAME(LOC) 3EX.2; GLUCOSE,POINT OF CARE 144 MG/DL (70-110)
[2022-07-24] MEDS: MetFORMIN HCL 500 MG TABLET PO SCH ×2 (06:36→17:30)
[2022-07-24 08:29] VITALS: BP 159/76; PULSE 83; RESP 18; TEMP 97.8
[2022-07-24] MEDS: AmLODIPine BESYLATE 5 MG TABLET PO SCH (09:00)
[2022-07-24] MEDS: ATORVASTATIN CALCIUM 10 MG TABLET PO SCH (09:00)
[2022-07-24] MEDS: RisperiDONE 2 MG TABLET PO SCH ×2 (09:00→20:41)
[2022-07-24] MEDS: HALOPERIDOL LACTATE 5 MG/ML VIAL IM PRN ×2 (09:25→21:01)
[2022-07-24 16:01] LABS: GLUCOMETER DEV NAME(LOC) 3EX.2; GLUCOSE,POINT OF CARE 132 MG/DL (70-110)
[2022-07-24 20:23] VITALS: RESP 20
[2022-07-25] MEDS: MAGNESIUM HYDROXIDE SUSPENSION 30 ML UDCUP PO PRN (02:41)
[2022-07-25 06:01] LABS: GLUCOMETER DEV NAME(LOC) 3EX.2; GLUCOSE,POINT OF CARE 123 MG/DL (70-110)
[2022-07-25] MEDS: MetFORMIN HCL 500 MG TABLET PO SCH ×2 (07:06→17:30)
[2022-07-25 08:51] VITALS: BP 120/73; PULSE 79; RESP 18; TEMP 97.6
[2022-07-25] MEDS: RisperiDONE 2 MG TABLET PO SCH ×2 (09:00→20:55)
[2022-07-25] MEDS: AmLODIPine BESYLATE 5 MG TABLET PO SCH (09:00)
[2022-07-25] MEDS: ATORVASTATIN CALCIUM 10 MG TABLET PO SCH (09:00)
[2022-07-25] MEDS: HALOPERIDOL LACTATE 5 MG/ML VIAL IM PRN ×2 (10:15→21:00)
[2022-07-25 16:16] LABS: GLUCOMETER DEV NAME(LOC) 3EX.2; GLUCOSE,POINT OF CARE 155 MG/DL (70-110)
[2022-07-25 20:11] VITALS: RESP 20
[2022-07-26 06:56] LABS: GLUCOMETER DEV NAME(LOC) 3EX.2; GLUCOSE,POINT OF CARE 90 MG/DL (70-110)
[2022-07-26] MEDS: MetFORMIN HCL 500 MG TABLET PO SCH ×2 (07:04→16:49)
[2022-07-26 08:35] VITALS: BP 160/74; PULSE 99; RESP 17; TEMP 97.6
[2022-07-26] MEDS: RisperiDONE 2 MG TABLET PO SCH ×2 (08:40→21:00)
[2022-07-26] MEDS: ATORVASTATIN CALCIUM 10 MG TABLET PO SCH (08:40)
[2022-07-26] MEDS: AmLODIPine BESYLATE 5 MG TABLET PO SCH (08:40)
[2022-07-26] MEDS: HALOPERIDOL LACTATE 5 MG/ML VIAL IM PRN ×2 (08:46→22:35)
[2022-07-26 17:16] LABS: GLUCOMETER DEV NAME(LOC) 3EX.2; GLUCOSE,POINT OF CARE 154 MG/DL (70-110)
[2022-07-26 20:07] VITALS: RESP 18
[2022-07-27 06:11] LABS: GLUCOMETER DEV NAME(LOC) 3EX.2; GLUCOSE,POINT OF CARE 141 MG/DL (70-110)
[2022-07-27] MEDS: MetFORMIN HCL 500 MG TABLET PO SCH ×2 (07:04→17:09)
[2022-07-27] MEDS: ATORVASTATIN CALCIUM 10 MG TABLET PO SCH (08:02)
[2022-07-27] MEDS: RisperiDONE 2 MG TABLET PO SCH ×2 (08:02→20:51)
[2022-07-27] MEDS: AmLODIPine BESYLATE 5 MG TABLET PO SCH (08:02)
[2022-07-27] MEDS: HALOPERIDOL LACTATE 5 MG/ML VIAL IM PRN (08:29)
[2022-07-27 09:43] VITALS: BP 150/85; PULSE 90; RESP 17; TEMP 97.7
[2022-07-27 17:11] LABS: GLUCOMETER DEV NAME(LOC) 3EX.2; GLUCOSE,POINT OF CARE 144 MG/DL (70-110)
[2022-07-27 20:14] VITALS: BP 143/78; PULSE 76; RESP 18; TEMP 98
[2022-07-28 06:21] LABS: GLUCOMETER DEV NAME(LOC) 3EX.2; GLUCOSE,POINT OF CARE 121 MG/DL (70-110)
[2022-07-28] MEDS: MetFORMIN HCL 500 MG TABLET PO SCH ×2 (06:35→17:30)
[2022-07-28 08:18] VITALS: BP 132/73; PULSE 83; RESP 16; TEMP 97.8
[2022-07-28] MEDS: RisperiDONE 2 MG TABLET PO SCH ×2 (09:00→20:25)
[2022-07-28] MEDS: AmLODIPine BESYLATE 5 MG TABLET PO SCH (09:00)
[2022-07-28] MEDS: ATORVASTATIN CALCIUM 10 MG TABLET PO SCH (09:00)
[2022-07-28 16:51] LABS: GLUCOMETER DEV NAME(LOC) 3EX.2; GLUCOSE,POINT OF CARE 125 MG/DL (70-110)
[2022-07-28] MEDS ORDERED: DiphenhydrAMINE HCL 50 MG/ML VIAL IM ONE (20:45)
[2022-07-28] MEDS ORDERED: HALOPERIDOL LACTATE 5 MG/ML VIAL IM ONE (20:45)
[2022-07-28] MEDS ORDERED: LORazepam 2 MG/ML VIAL IM ONE (20:45)
[2022-07-28 21:18] VITALS: BP 141/80; PULSE 98; RESP 20; TEMP 97.4
[2022-07-29] MEDS: MetFORMIN HCL 500 MG TABLET PO SCH ×2 (06:40→18:38)
[2022-07-29 06:46] LABS: GLUCOMETER DEV NAME(LOC) 3EX.2; GLUCOSE,POINT OF CARE 92 MG/DL (70-110)
[2022-07-29 08:38] VITALS: BP 142/81; PULSE 77; RESP 18; TEMP 97.4
[2022-07-29] MEDS: ATORVASTATIN CALCIUM 10 MG TABLET PO SCH ×2 (09:00→10:30)
[2022-07-29] MEDS: AmLODIPine BESYLATE 5 MG TABLET PO SCH (09:00)
[2022-07-29] MEDS: RisperiDONE 2 MG TABLET PO SCH ×2 (11:48→20:55)
[2022-07-29] MEDS: MAGNESIUM HYDROXIDE SUSPENSION 30 ML UDCUP PO PRN (11:48)
[2022-07-29 17:36] LABS: GLUCOMETER DEV NAME(LOC) 3EX.2; GLUCOSE,POINT OF CARE 137 MG/DL (70-110)
[2022-07-29 20:18] VITALS: RESP 20
[2022-07-30 06:31] LABS: GLUCOMETER DEV NAME(LOC) 3EX.2; GLUCOSE,POINT OF CARE 171 MG/DL (70-110)
[2022-07-30] MEDS: MetFORMIN HCL 500 MG TABLET PO SCH ×2 (06:45→17:23)
[2022-07-30 08:19] VITALS: RESP 18
[2022-07-30] MEDS: ATORVASTATIN CALCIUM 10 MG TABLET PO SCH (08:33)
[2022-07-30] MEDS: AmLODIPine BESYLATE 5 MG TABLET PO SCH (08:33)
[2022-07-30] MEDS: RisperiDONE 2 MG TABLET PO SCH ×2 (08:34→20:25)
[2022-07-30 08:42] VITALS: BP 118/56; PULSE 85; RESP 18; TEMP 97.6
[2022-07-30 18:21] LABS: GLUCOMETER DEV NAME(LOC) 3EX.2; GLUCOSE,POINT OF CARE 119 MG/DL (70-110)
[2022-07-30 21:35] VITALS: RESP 19
[2022-07-31 06:37] LABS: GLUCOMETER DEV NAME(LOC) 3EX.2; GLUCOSE,POINT OF CARE 185 MG/DL (70-110)
[2022-07-31] MEDS: MetFORMIN HCL 500 MG TABLET PO SCH ×2 (07:30→17:30)
[2022-07-31 08:35] VITALS: RESP 18
[2022-07-31] MEDS: AmLODIPine BESYLATE 5 MG TABLET PO SCH (09:00)
[2022-07-31] MEDS: RisperiDONE 2 MG TABLET PO SCH ×2 (09:00→20:17)
[2022-07-31] MEDS: ATORVASTATIN CALCIUM 10 MG TABLET PO SCH (09:00)
[2022-07-31 16:55] LABS: GLUCOMETER DEV NAME(LOC) 3EX.2; GLUCOSE,POINT OF CARE 96 MG/DL (70-110)
[2022-07-31 20:04] VITALS: RESP 20
[2022-08-01] MEDS: MAGNESIUM HYDROXIDE SUSPENSION 30 ML UDCUP PO PRN (04:50)
[2022-08-01 05:20] LABS: GLUCOMETER DEV NAME(LOC) 3EX.2; GLUCOSE,POINT OF CARE 150 MG/DL (70-110)
[2022-08-01] MEDS: MetFORMIN HCL 500 MG TABLET PO SCH ×2 (06:39→17:30)
[2022-08-01] MEDS: AmLODIPine BESYLATE 5 MG TABLET PO SCH (08:14)
[2022-08-01] MEDS: ATORVASTATIN CALCIUM 10 MG TABLET PO SCH (08:15)
[2022-08-01] MEDS: RisperiDONE 2 MG TABLET PO SCH ×2 (08:15→20:10)
[2022-08-01 08:32] VITALS: BP 164/83; PULSE 71; RESP 18; TEMP 97.6
[2022-08-01 13:20] VITALS: BP 128/78; PULSE 97; RESP 17; TEMP 97.8
[2022-08-01 17:26] LABS: GLUCOMETER DEV NAME(LOC) 3EX.2; GLUCOSE,POINT OF CARE 115 MG/DL (70-110)
[2022-08-01 20:00] VITALS: BP 142/86; RESP 18; TEMP 98
[2022-08-02 06:36] LABS: GLUCOMETER DEV NAME(LOC) 3EX.2; GLUCOSE,POINT OF CARE 132 MG/DL (70-110)
[2022-08-02] MEDS: MetFORMIN HCL 500 MG TABLET PO SCH ×2 (06:38→17:30)
[2022-08-02 08:26] VITALS: BP 142/78; PULSE 75; RESP 19; TEMP 97
[2022-08-02] MEDS: AmLODIPine BESYLATE 5 MG TABLET PO SCH (08:55)
[2022-08-02] MEDS: ATORVASTATIN CALCIUM 10 MG TABLET PO SCH (08:55)
[2022-08-02] MEDS: RisperiDONE 2 MG TABLET PO SCH ×2 (08:55→21:00)
[2022-08-02 16:27] LABS: GLUCOMETER DEV NAME(LOC) 3EX.2; GLUCOSE,POINT OF CARE 116 MG/DL (70-110)
[2022-08-02 20:15] VITALS: BP 123/73; PULSE 78; RESP 18; TEMP 97.6
[2022-08-03 05:42] LABS: GLUCOMETER DEV NAME(LOC) 3EX.2; GLUCOSE,POINT OF CARE 115 MG/DL (70-110)
[2022-08-03] MEDS: MetFORMIN HCL 500 MG TABLET PO SCH ×2 (06:36→17:30)
[2022-08-03 08:16] VITALS: BP 117/67; PULSE 75; RESP 18; TEMP 97.4
[2022-08-03] MEDS: AmLODIPine BESYLATE 5 MG TABLET PO SCH (09:00)
[2022-08-03] MEDS: ATORVASTATIN CALCIUM 10 MG TABLET PO SCH (09:00)
[2022-08-03] MEDS: RisperiDONE 2 MG TABLET PO SCH ×2 (09:00→21:00)
[2022-08-03 17:02] LABS: GLUCOMETER DEV NAME(LOC) 3EX.2; GLUCOSE,POINT OF CARE 128 MG/DL (70-110)
[2022-08-03 20:00] VITALS: BP 168/86; PULSE 80; RESP 18; TEMP 98
[2022-08-04 05:47] LABS: GLUCOMETER DEV NAME(LOC) 3EX.2; GLUCOSE,POINT OF CARE 122 MG/DL (70-110)
[2022-08-04] MEDS: MetFORMIN HCL 500 MG TABLET PO SCH ×2 (06:34→16:51)
[2022-08-04] MEDS: AmLODIPine BESYLATE 5 MG TABLET PO SCH (09:00)
[2022-08-04] MEDS: ATORVASTATIN CALCIUM 10 MG TABLET PO SCH (09:00)
[2022-08-04] MEDS: RisperiDONE 2 MG TABLET PO SCH ×3 (09:00→21:00)
[2022-08-04 09:05] LABS: BASOPHILS % (AUTO) 2.1 % (0.0-2.0); EOSINOPHILS % (AUTO) 2.6 % (1.0-6.0); HEMATOCRIT 41.5 % (36-46); HEMOGLOBIN 13.7 g/dL (12.0-16.0); LYMPHOCYTES # (AUTO) 1.3 K/uL (1.0-4.8); LYMPHOCYTES % (AUTO) 26.3 % (22.0-44.0); MEAN CORPUSCULAR HEMOGLOBIN 30.1 pg (26.0-34.0); MEAN CORPUSCULAR VOLUME 91 fL (80-100); MONOCYTES # (AUTO) 0.5 K/uL (0.1-1.0); MONOCYTES % (AUTO) 9.2 % (2.0-9.0); NEUTROPHILS % (AUTO) 59.8 % (40.0-70.0); PLATELET COUNT (AUTO) 256 K/uL (150-450); RED BLOOD CELL COUNT(AUTO) 4.55 MIL/uL (4.00-5.20); RED CELL DISTRIBUTION WIDTH 15.6 % (11.5-14.5)
[2022-08-04 09:21] LABS: ANION GAP 10 mmol/L (8-16); CALCIUM, TOTAL 8.7 mg/dL (8.8-10.5); CARBON DIOXIDE 28 mmol/L (22-29); CHLORIDE 102 mmol/L (98-107); GLOMERULAR FILTR. RATE CALC > 60 mL/min (>60); GLUCOSE,RANDOM 196 mg/dL (70-110); POTASSIUM 3.2 mmol/L (3.5-5.1); SODIUM SERUM 140 mmol/L (136-145); UREA NITROGEN, BLOOD 11 mg/dL (7-18)
[2022-08-04 09:23] VITALS: BP 165/76; PULSE 72; RESP 18; TEMP 97.9
[2022-08-04 16:27] LABS: GLUCOMETER DEV NAME(LOC) 3EX.2; GLUCOSE,POINT OF CARE 188 MG/DL (70-110)
[2022-08-04 20:00] VITALS: BP 161/89; PULSE 117; RESP 18; TEMP 97.3
[2022-08-04] MEDS ORDERED: POTASSIUM CHLORIDE 20 MEQ ER TABLET PO ONE (20:00)
[2022-08-05] MEDS: MetFORMIN HCL 500 MG TABLET PO SCH ×2 (06:39→17:30)
[2022-08-05 06:51] LABS: GLUCOMETER DEV NAME(LOC) 3EX.2; GLUCOSE,POINT OF CARE 151 MG/DL (70-110)
[2022-08-05] MEDS: AmLODIPine BESYLATE 5 MG TABLET PO SCH (08:44)
[2022-08-05] MEDS: ATORVASTATIN CALCIUM 10 MG TABLET PO SCH (08:44)
[2022-08-05] MEDS: RisperiDONE 2 MG TABLET PO SCH ×2 (08:44→21:00)
[2022-08-05 08:53] VITALS: BP 144/74; PULSE 77; RESP 18; TEMP 98
[2022-08-05 17:08] LABS: GLUCOMETER DEV NAME(LOC) 3EX.2; GLUCOSE,POINT OF CARE 118 MG/DL (70-110)
[2022-08-05] MEDS ORDERED: POTASSIUM CHLORIDE 20 MEQ ER TABLET PO ONE (18:30)
[2022-08-05 20:23] VITALS: RESP 18
[2022-08-06 06:07] LABS: GLUCOMETER DEV NAME(LOC) 3EX.2; GLUCOSE,POINT OF CARE 122 MG/DL (70-110)
[2022-08-06] MEDS: MetFORMIN HCL 500 MG TABLET PO SCH ×2 (06:36→17:28)
[2022-08-06 08:01] VITALS: BP 140/61; PULSE 76; RESP 18; TEMP 97.2
[2022-08-06 08:01] LABS: MAGNESIUM 2.3 mg/dL (1.80-2.40); POTASSIUM 3.4 mmol/L (3.5-5.1)
[2022-08-06] MEDS: ATORVASTATIN CALCIUM 10 MG TABLET PO SCH (09:00)
[2022-08-06] MEDS: RisperiDONE 2 MG TABLET PO SCH ×2 (09:00→21:00)
[2022-08-06] MEDS: AmLODIPine BESYLATE 5 MG TABLET PO SCH (09:00)
[2022-08-06 16:28] LABS: GLUCOMETER DEV NAME(LOC) 3EX.2; GLUCOSE,POINT OF CARE 218 MG/DL (70-110)
[2022-08-06 21:36] VITALS: RESP 18
[2022-08-07] MEDS: MAGNESIUM HYDROXIDE SUSPENSION 30 ML UDCUP PO PRN (00:57)
[2022-08-07] MEDS: MetFORMIN HCL 500 MG TABLET PO SCH ×2 (06:34→17:30)
[2022-08-07 07:17] LABS: GLUCOMETER DEV NAME(LOC) 3EX.2; GLUCOSE,POINT OF CARE 130 MG/DL (70-110)
[2022-08-07 09:00] VITALS: BP 172/88; PULSE 78; RESP 18; TEMP 97.8
[2022-08-07] MEDS: RisperiDONE 2 MG TABLET PO SCH ×2 (09:00→20:57)
[2022-08-07] MEDS: AmLODIPine BESYLATE 5 MG TABLET PO SCH (09:00)
[2022-08-07] MEDS: ATORVASTATIN CALCIUM 10 MG TABLET PO SCH (09:00)
[2022-08-07 10:00] VITALS: BP 164/86; PULSE 82
[2022-08-07 17:38] LABS: GLUCOMETER DEV NAME(LOC) 3EX.2; GLUCOSE,POINT OF CARE 174 MG/DL (70-110)
[2022-08-07] MEDS ORDERED: CloNIDine 0.1 MG/24 HOUR PATCH TD ONE (19:15)
[2022-08-07] MEDS: LORazepam 2 MG TABLET PO PRN (20:53)
[2022-08-07 21:12] VITALS: BP 139/78; PULSE 87; RESP 18; TEMP 97.8
[2022-08-07] MEDS: ZOLPIDEM TARTRATE 10 MG TABLET PO PRN (22:20)
[2022-08-08] MEDS: MetFORMIN HCL 500 MG TABLET PO SCH ×2 (06:33→17:30)
[2022-08-08 07:12] LABS: GLUCOMETER DEV NAME(LOC) 3EX.2; GLUCOSE,POINT OF CARE 167 MG/DL (70-110)
[2022-08-08] MEDS: AmLODIPine BESYLATE 5 MG TABLET PO SCH (09:00)
[2022-08-08] MEDS: RisperiDONE 2 MG TABLET PO SCH ×2 (09:00→20:10)
[2022-08-08] MEDS: ATORVASTATIN CALCIUM 10 MG TABLET PO SCH (09:00)
[2022-08-08 09:20] VITALS: BP 133/67; PULSE 71; RESP 18; TEMP 97.6
[2022-08-08] MEDS: CloNIDine 0.1 MG/24 HOUR PATCH TD SCH (12:33)
[2022-08-08 17:28] LABS: GLUCOMETER DEV NAME(LOC) 3EX.2; GLUCOSE,POINT OF CARE 136 MG/DL (70-110)
[2022-08-08] MEDS ORDERED: HALOPERIDOL LACTATE 5 MG/ML VIAL IM ONE (20:00)
[2022-08-08] MEDS ORDERED: LORazepam 2 MG/ML VIAL IM ONE (20:00)
[2022-08-08] MEDS ORDERED: DiphenhydrAMINE HCL 50 MG/ML VIAL IM ONE (20:00)
[2022-08-08 20:13] VITALS: BP 135/78; PULSE 91; RESP 18; TEMP 97.8
[2022-08-09 06:48] LABS: GLUCOMETER DEV NAME(LOC) 3EX.2; GLUCOSE,POINT OF CARE 122 MG/DL (70-110)
[2022-08-09] MEDS: MetFORMIN HCL 500 MG TABLET PO SCH ×2 (07:05→17:30)
[2022-08-09 08:30] VITALS: BP 160/90; PULSE 77; RESP 18; TEMP 98
[2022-08-09] MEDS: RisperiDONE 2 MG TABLET PO SCH ×2 (09:00→21:00)
[2022-08-09] MEDS: AmLODIPine BESYLATE 5 MG TABLET PO SCH (09:00)
[2022-08-09] MEDS: ATORVASTATIN CALCIUM 10 MG TABLET PO SCH (09:00)
[2022-08-09] MEDS: MAGNESIUM HYDROXIDE SUSPENSION 30 ML UDCUP PO PRN (10:42)
[2022-08-09 17:33] LABS: GLUCOMETER DEV NAME(LOC) 3EX.2; GLUCOSE,POINT OF CARE 104 MG/DL (70-110)
[2022-08-09] MEDS: HALOPERIDOL 5 MG TABLET PO PRN (20:23)
[2022-08-09] MEDS: LORazepam 2 MG TABLET PO PRN (20:23)
[2022-08-09 20:35] VITALS: BP 145/89; PULSE 88; RESP 18; TEMP 98.3
[2022-08-10 06:32] LABS: GLUCOMETER DEV NAME(LOC) 3EX.2; GLUCOSE,POINT OF CARE 137 MG/DL (70-110)
[2022-08-10] MEDS: MetFORMIN HCL 500 MG TABLET PO SCH ×2 (07:10→17:30)
[2022-08-10 08:28] VITALS: BP 138/86; PULSE 75; RESP 17; TEMP 97.4
[2022-08-10] MEDS: RisperiDONE 2 MG TABLET PO SCH ×2 (09:00→20:34)
[2022-08-10] MEDS: AmLODIPine BESYLATE 5 MG TABLET PO SCH (09:00)
[2022-08-10] MEDS: ATORVASTATIN CALCIUM 10 MG TABLET PO SCH (09:00)
[2022-08-11] MEDS: LORazepam 2 MG TABLET PO PRN (02:04)
[2022-08-11 06:23] LABS: GLUCOMETER DEV NAME(LOC) 3EX.2; GLUCOSE,POINT OF CARE 123 MG/DL (70-110)
[2022-08-11] MEDS: MetFORMIN HCL 500 MG TABLET PO SCH ×2 (07:07→17:30)
[2022-08-11 08:09] VITALS: BP 150/66; PULSE 72; RESP 18; TEMP 97.6
[2022-08-11] MEDS: ATORVASTATIN CALCIUM 10 MG TABLET PO SCH (09:00)
[2022-08-11] MEDS: RisperiDONE 2 MG TABLET PO SCH ×2 (09:00→20:55)
[2022-08-11] MEDS: AmLODIPine BESYLATE 5 MG TABLET PO SCH (09:00)
[2022-08-11 20:12] VITALS: RESP 20
[2022-08-11] MEDS ORDERED: LORazepam 2 MG/ML VIAL IM ONE (20:30)
[2022-08-11] MEDS ORDERED: HALOPERIDOL LACTATE 5 MG/ML VIAL IM ONE (20:30)
[2022-08-11] MEDS ORDERED: DiphenhydrAMINE HCL 50 MG/ML VIAL IM ONE (20:30)
[2022-08-12 06:57] LABS: GLUCOMETER DEV NAME(LOC) 3EX.2; GLUCOSE,POINT OF CARE 126 MG/DL (70-110)
[2022-08-12] MEDS: MetFORMIN HCL 500 MG TABLET PO SCH ×2 (07:09→16:13)
[2022-08-12 08:45] VITALS: BP 130/54; PULSE 89; RESP 18; TEMP 97.6
[2022-08-12] MEDS: AmLODIPine BESYLATE 5 MG TABLET PO SCH (08:55)
[2022-08-12] MEDS: ATORVASTATIN CALCIUM 10 MG TABLET PO SCH (08:55)
[2022-08-12] MEDS: RisperiDONE 2 MG TABLET PO SCH ×2 (08:55→21:00)
[2022-08-12] MEDS ORDERED: LORazepam 2 MG/ML VIAL IM ONE (11:45)
[2022-08-12] MEDS ORDERED: HALOPERIDOL LACTATE 5 MG/ML VIAL IM ONE (11:45)
[2022-08-12] MEDS ORDERED: DiphenhydrAMINE HCL 50 MG/ML VIAL IM ONE (11:45)
[2022-08-12] MEDS ORDERED: LEVO100 PO (11:53)
[2022-08-12 16:32] LABS: GLUCOMETER DEV NAME(LOC) 3EX.2; GLUCOSE,POINT OF CARE 159 MG/DL (70-110)
[2022-08-12 20:17] VITALS: RESP 20
[2022-08-13] MEDS: LORazepam 2 MG TABLET PO PRN (01:31)
[2022-08-13] MEDS: HALOPERIDOL 5 MG TABLET PO PRN (01:31)
[2022-08-13] MEDS: MetFORMIN HCL 500 MG TABLET PO SCH ×3 (07:13→17:31)
[2022-08-13 08:41] VITALS: BP 140/77; PULSE 98; RESP 18; TEMP 97.6
[2022-08-13] MEDS: MAGNESIUM HYDROXIDE SUSPENSION 30 ML UDCUP PO PRN (09:54)
[2022-08-13] MEDS: AmLODIPine BESYLATE 5 MG TABLET PO SCH (09:56)
[2022-08-13] MEDS: ATORVASTATIN CALCIUM 10 MG TABLET PO SCH (09:56)
[2022-08-13] MEDS: RisperiDONE 2 MG TABLET PO SCH ×2 (09:56→21:00)
[2022-08-13 17:38] LABS: GLUCOMETER DEV NAME(LOC) 3EX.2; GLUCOSE,POINT OF CARE 154 MG/DL (70-110)
[2022-08-13] MEDS ORDERED: HALOPERIDOL LACTATE 5 MG/ML VIAL IM ONE (20:00)
[2022-08-13] MEDS ORDERED: LORazepam 2 MG/ML VIAL IM ONE (20:00)
[2022-08-13] MEDS ORDERED: DiphenhydrAMINE HCL 50 MG/ML VIAL IM ONE (20:00)
[2022-08-13 20:16] VITALS: RESP 20
[2022-08-14 06:42] LABS: GLUCOMETER DEV NAME(LOC) 3EX.2; GLUCOSE,POINT OF CARE 112 MG/DL (70-110)
[2022-08-14] MEDS: MetFORMIN HCL 500 MG TABLET PO SCH ×2 (07:03→17:30)
[2022-08-14] MEDS: AmLODIPine BESYLATE 5 MG TABLET PO SCH (08:11)
[2022-08-14] MEDS: ATORVASTATIN CALCIUM 10 MG TABLET PO SCH (08:11)
[2022-08-14] MEDS: RisperiDONE 2 MG TABLET PO SCH ×2 (08:11→21:00)
[2022-08-14 08:26] VITALS: BP 141/78; PULSE 66; RESP 18; TEMP 97.6
[2022-08-14 16:17] LABS: GLUCOMETER DEV NAME(LOC) 3EX.2; GLUCOSE,POINT OF CARE 129 MG/DL (70-110)
[2022-08-14 20:22] VITALS: BP 135/87; PULSE 79; RESP 19; TEMP 97.1
[2022-08-15 06:52] LABS: GLUCOMETER DEV NAME(LOC) 3EX.2; GLUCOSE,POINT OF CARE 131 MG/DL (70-110)
[2022-08-15] MEDS: MetFORMIN HCL 500 MG TABLET PO SCH ×2 (07:09→17:30)
[2022-08-15] MEDS: RisperiDONE 2 MG TABLET PO SCH ×2 (07:41→21:00)
[2022-08-15] MEDS: AmLODIPine BESYLATE 5 MG TABLET PO SCH (07:41)
[2022-08-15] MEDS: ATORVASTATIN CALCIUM 10 MG TABLET PO SCH (07:41)
[2022-08-15] MEDS: CloNIDine 0.1 MG/24 HOUR PATCH TD SCH (07:42)
[2022-08-15 08:27] VITALS: BP 167/77; PULSE 93; RESP 18; TEMP 97.6
[2022-08-15] MEDS: MAGNESIUM HYDROXIDE SUSPENSION 30 ML UDCUP PO PRN (10:34)
[2022-08-15] MEDS ORDERED: DiphenhydrAMINE HCL 50 MG/ML VIAL IM ONE (10:45)
[2022-08-15] MEDS ORDERED: LORazepam 2 MG/ML VIAL IM ONE (10:45)
[2022-08-15] MEDS ORDERED: HALOPERIDOL LACTATE 5 MG/ML VIAL IM ONE (10:45)
[2022-08-15 17:42] LABS: GLUCOMETER DEV NAME(LOC) 3EX.2; GLUCOSE,POINT OF CARE 155 MG/DL (70-110)
[2022-08-16 06:41] LABS: GLUCOMETER DEV NAME(LOC) 3EX.2; GLUCOSE,POINT OF CARE 224 MG/DL (70-110)
[2022-08-16] MEDS: MetFORMIN HCL 500 MG TABLET PO SCH ×2 (07:11→17:30)
[2022-08-16 08:25] VITALS: BP 156/77; PULSE 86; RESP 18; TEMP 97.1
[2022-08-16] MEDS: ATORVASTATIN CALCIUM 10 MG TABLET PO SCH (09:00)
[2022-08-16] MEDS: AmLODIPine BESYLATE 5 MG TABLET PO SCH (09:00)
[2022-08-16] MEDS: RisperiDONE 2 MG TABLET PO SCH ×2 (09:00→20:35)
[2022-08-16 17:23] LABS: GLUCOMETER DEV NAME(LOC) 3EX.2; GLUCOSE,POINT OF CARE 205 MG/DL (70-110)
[2022-08-16] MEDS: LORazepam 2 MG TABLET PO PRN (20:35)
[2022-08-16] MEDS: HALOPERIDOL 5 MG TABLET PO PRN (20:35)
[2022-08-16 20:52] VITALS: RESP 18
[2022-08-17] MEDS: ZOLPIDEM TARTRATE 10 MG TABLET PO PRN (02:50)
[2022-08-17] MEDS: MetFORMIN HCL 500 MG TABLET PO SCH ×2 (06:34→17:44)
[2022-08-17 07:01] LABS: GLUCOMETER DEV NAME(LOC) 3EX.2; GLUCOSE,POINT OF CARE 135 MG/DL (70-110)
[2022-08-17] MEDS: AmLODIPine BESYLATE 5 MG TABLET PO SCH (09:04)
[2022-08-17] MEDS: RisperiDONE 2 MG TABLET PO SCH ×2 (09:04→20:36)
[2022-08-17] MEDS: ATORVASTATIN CALCIUM 10 MG TABLET PO SCH (09:05)
[2022-08-17 09:06] VITALS: BP 121/65; PULSE 71; RESP 18; TEMP 97.9
[2022-08-17 17:13] LABS: GLUCOMETER DEV NAME(LOC) 3EX.2; GLUCOSE,POINT OF CARE 173 MG/DL (70-110)
[2022-08-17 20:09] VITALS: BP 131/81; PULSE 82; RESP 18; TEMP 97.1
[2022-08-18 06:31] LABS: GLUCOMETER DEV NAME(LOC) 3EX.2; GLUCOSE,POINT OF CARE 184 MG/DL (70-110)
[2022-08-18] MEDS: MetFORMIN HCL 500 MG TABLET PO SCH ×2 (06:48→17:23)
[2022-08-18] MEDS: RisperiDONE 2 MG TABLET PO SCH ×2 (08:19→21:55)
[2022-08-18] MEDS: LORazepam 2 MG TABLET PO PRN ×2 (08:19→17:23)
[2022-08-18] MEDS: HALOPERIDOL 5 MG TABLET PO PRN ×2 (08:19→17:23)
[2022-08-18] MEDS: ATORVASTATIN CALCIUM 10 MG TABLET PO SCH (08:19)
[2022-08-18] MEDS: AmLODIPine BESYLATE 5 MG TABLET PO SCH (08:19)
[2022-08-18 09:18] VITALS: BP 165/86; PULSE 70; RESP 18; TEMP 97.5
[2022-08-18 17:16] LABS: GLUCOMETER DEV NAME(LOC) 3EX.2; GLUCOSE,POINT OF CARE 158 MG/DL (70-110)
[2022-08-18 20:13] VITALS: RESP 20
[2022-08-19] MEDS: ZOLPIDEM TARTRATE 10 MG TABLET PO PRN ×2 (02:14→22:50)
[2022-08-19] MEDS: LORazepam 2 MG TABLET PO PRN ×4 (02:14→22:50)
[2022-08-19 06:46] LABS: GLUCOMETER DEV NAME(LOC) 3EX.2; GLUCOSE,POINT OF CARE 128 MG/DL (70-110)
[2022-08-19] MEDS: MetFORMIN HCL 500 MG TABLET PO SCH ×2 (07:00→16:51)
[2022-08-19 08:01] VITALS: BP 133/73; PULSE 76; RESP 18; TEMP 97.2
[2022-08-19] MEDS: AmLODIPine BESYLATE 5 MG TABLET PO SCH (08:33)
[2022-08-19] MEDS: ATORVASTATIN CALCIUM 10 MG TABLET PO SCH (08:33)
[2022-08-19] MEDS: RisperiDONE 2 MG TABLET PO SCH ×2 (08:33→21:00)
[2022-08-19] MEDS: HALOPERIDOL 5 MG TABLET PO PRN ×2 (08:35→16:52)
[2022-08-19 17:06] LABS: GLUCOMETER DEV NAME(LOC) 3EX.2; GLUCOSE,POINT OF CARE 194 MG/DL (70-110)
[2022-08-19 20:41] VITALS: RESP 20
[2022-08-20 06:11] LABS: GLUCOMETER DEV NAME(LOC) 3EX.2; GLUCOSE,POINT OF CARE 233 MG/DL (70-110)
[2022-08-20] MEDS: MetFORMIN HCL 500 MG TABLET PO SCH ×2 (06:42→16:30)
[2022-08-20 08:08] VITALS: BP 147/78; PULSE 77; RESP 19; TEMP 97.6
[2022-08-20] MEDS: AmLODIPine BESYLATE 5 MG TABLET PO SCH (08:18)
[2022-08-20] MEDS: RisperiDONE 2 MG TABLET PO SCH ×2 (08:18→20:40)
[2022-08-20] MEDS: ATORVASTATIN CALCIUM 10 MG TABLET PO SCH (08:18)
[2022-08-20] MEDS: HALOPERIDOL 5 MG TABLET PO PRN (08:20)
[2022-08-20] MEDS: LORazepam 2 MG TABLET PO PRN ×2 (16:29→20:40)
[2022-08-20 17:02] LABS: GLUCOMETER DEV NAME(LOC) 3EX.2; GLUCOSE,POINT OF CARE 154 MG/DL (70-110)
[2022-08-20 20:23] VITALS: BP 141/82; PULSE 84; RESP 18; TEMP 97.7
[2022-08-20] MEDS: ZOLPIDEM TARTRATE 10 MG TABLET PO PRN (21:42)
[2022-08-21] MEDS: MetFORMIN HCL 500 MG TABLET PO SCH ×2 (06:34→17:43)
[2022-08-21 06:36] LABS: GLUCOMETER DEV NAME(LOC) 3EX.2; GLUCOSE,POINT OF CARE 136 MG/DL (70-110)
[2022-08-21 08:43] VITALS: BP 151/81; PULSE 76; RESP 17; TEMP 97.8
[2022-08-21] MEDS: AmLODIPine BESYLATE 5 MG TABLET PO SCH (08:48)
[2022-08-21] MEDS: RisperiDONE 2 MG TABLET PO SCH ×2 (08:48→20:23)
[2022-08-21] MEDS: ATORVASTATIN CALCIUM 10 MG TABLET PO SCH (08:48)
[2022-08-21] MEDS: LORazepam 2 MG TABLET PO PRN ×2 (11:58→19:42)
[2022-08-21] MEDS: HALOPERIDOL 5 MG TABLET PO PRN (11:58)
[2022-08-21] MEDS ORDERED: DiphenhydrAMINE HCL 50 MG/ML VIAL IM ONE (14:00)
[2022-08-21] MEDS ORDERED: HALOPERIDOL LACTATE 5 MG/ML VIAL IM ONE (14:00)
[2022-08-21] MEDS ORDERED: LORazepam 2 MG/ML VIAL IM ONE (14:00)
[2022-08-21] MEDS ORDERED: LORazepam 2 MG/ML VIAL ONE (14:01)
[2022-08-21] MEDS ORDERED: HALOPERIDOL LACTATE 5 MG/ML VIAL ONE (14:01)
[2022-08-21] MEDS ORDERED: DiphenhydrAMINE HCL 50 MG/ML VIAL ONE (14:02)
[2022-08-21 16:35] LABS: GLUCOMETER DEV NAME(LOC) 3EX.2; GLUCOSE,POINT OF CARE 124 MG/DL (70-110)
[2022-08-21 20:51] VITALS: RESP 18
[2022-08-21] MEDS: ZOLPIDEM TARTRATE 10 MG TABLET PO PRN (21:56)
[2022-08-22] MEDS: MetFORMIN HCL 500 MG TABLET PO SCH ×2 (06:39→16:51)
[2022-08-22 06:46] LABS: GLUCOMETER DEV NAME(LOC) 3EX.2; GLUCOSE,POINT OF CARE 130 MG/DL (70-110)
[2022-08-22 09:20] VITALS: BP 152/61; PULSE 74; RESP 18; TEMP 98
[2022-08-22] MEDS: ATORVASTATIN CALCIUM 10 MG TABLET PO SCH (09:24)
[2022-08-22] MEDS: RisperiDONE 2 MG TABLET PO SCH ×2 (09:24→21:14)
[2022-08-22] MEDS: AmLODIPine BESYLATE 5 MG TABLET PO SCH (09:24)
[2022-08-22] MEDS: HALOPERIDOL 5 MG TABLET PO PRN ×2 (09:26→21:14)
[2022-08-22] MEDS: CloNIDine 0.1 MG/24 HOUR PATCH TD SCH (09:35)
[2022-08-22] MEDS: LORazepam 2 MG TABLET PO PRN (15:52)
[2022-08-22 17:16] LABS: GLUCOMETER DEV NAME(LOC) 3EX.2; GLUCOSE,POINT OF CARE 175 MG/DL (70-110)
[2022-08-22 20:08] VITALS: RESP 20
[2022-08-22] MEDS: ZOLPIDEM TARTRATE 10 MG TABLET PO PRN (21:14)
[2022-08-23 06:21] LABS: GLUCOMETER DEV NAME(LOC) 3EX.2; GLUCOSE,POINT OF CARE 146 MG/DL (70-110)
[2022-08-23] MEDS: MetFORMIN HCL 500 MG TABLET PO SCH ×2 (07:06→16:39)
[2022-08-23 08:04] VITALS: BP 152/85; PULSE 72; RESP 18; TEMP 97.5
[2022-08-23] MEDS: RisperiDONE 2 MG TABLET PO SCH ×2 (08:10→21:30)
[2022-08-23] MEDS: ATORVASTATIN CALCIUM 10 MG TABLET PO SCH (08:10)
[2022-08-23] MEDS: AmLODIPine BESYLATE 5 MG TABLET PO SCH (08:11)
[2022-08-23] MEDS: VALPROIC ACID 250 MG/5 ML SOLUTION UDCUP PO SCH ×2 (09:26→21:30)
[2022-08-23] MEDS: HALOPERIDOL 5 MG TABLET PO PRN (12:27)
[2022-08-23] MEDS: LORazepam 2 MG TABLET PO PRN ×2 (12:27→20:30)
[2022-08-23 16:40] LABS: GLUCOMETER DEV NAME(LOC) 3EX.2; GLUCOSE,POINT OF CARE 160 MG/DL (70-110)
[2022-08-23 20:10] VITALS: BP 146/87; PULSE 78; RESP 18; TEMP 97.7
[2022-08-23] MEDS: ZOLPIDEM TARTRATE 10 MG TABLET PO PRN (21:32)
[2022-08-24 05:56] LABS: GLUCOMETER DEV NAME(LOC) 3EX.2; GLUCOSE,POINT OF CARE 124 MG/DL (70-110)
[2022-08-24] MEDS: MetFORMIN HCL 500 MG TABLET PO SCH ×2 (06:34→17:14)
[2022-08-24 08:07] VITALS: BP 126/66; PULSE 79; RESP 18; TEMP 97.2
[2022-08-24] MEDS: ATORVASTATIN CALCIUM 10 MG TABLET PO SCH (08:38)
[2022-08-24] MEDS: VALPROIC ACID 250 MG/5 ML SOLUTION UDCUP PO SCH ×2 (08:47→21:24)
[2022-08-24] MEDS: RisperiDONE 2 MG TABLET PO SCH ×2 (08:47→21:23)
[2022-08-24] MEDS: AmLODIPine BESYLATE 5 MG TABLET PO SCH (08:48)
[2022-08-24] MEDS: HALOPERIDOL 5 MG TABLET PO PRN (10:30)
[2022-08-24] MEDS: LORazepam 2 MG TABLET PO PRN ×2 (10:30→19:40)
[2022-08-24 17:11] LABS: GLUCOMETER DEV NAME(LOC) 3EX.2; GLUCOSE,POINT OF CARE 117 MG/DL (70-110)
[2022-08-24 20:05] VITALS: BP 131/77; PULSE 74; RESP 18; TEMP 97.3
[2022-08-24] MEDS: ZOLPIDEM TARTRATE 10 MG TABLET PO PRN (21:24)
[2022-08-25 06:02] LABS: GLUCOMETER DEV NAME(LOC) 3EX.2; GLUCOSE,POINT OF CARE 132 MG/DL (70-110)
[2022-08-25] MEDS: MetFORMIN HCL 500 MG TABLET PO SCH ×2 (06:45→17:35)
[2022-08-25 08:14] VITALS: BP_SYST 138; BP_SYST 38; BP_DIAS 58; PULSE 78; RESP 18; TEMP 97.4
[2022-08-25] MEDS: ATORVASTATIN CALCIUM 10 MG TABLET PO SCH (08:36)
[2022-08-25] MEDS: RisperiDONE 2 MG TABLET PO SCH ×2 (08:36→20:23)
[2022-08-25] MEDS: VALPROIC ACID 250 MG/5 ML SOLUTION UDCUP PO SCH ×2 (08:36→20:22)
[2022-08-25] MEDS: AmLODIPine BESYLATE 5 MG TABLET PO SCH (08:36)
[2022-08-25 16:26] LABS: GLUCOMETER DEV NAME(LOC) 3EX.2; GLUCOSE,POINT OF CARE 158 MG/DL (70-110)
[2022-08-25] MEDS: LORazepam 2 MG TABLET PO PRN (19:20)
[2022-08-25 20:45] VITALS: BP 130/72; PULSE 76; RESP 18; TEMP 97.6
[2022-08-25] MEDS: ZOLPIDEM TARTRATE 10 MG TABLET PO PRN (21:36)
[2022-08-26] MEDS: MetFORMIN HCL 500 MG TABLET PO SCH ×2 (06:34→17:55)
[2022-08-26 06:46] LABS: GLUCOMETER DEV NAME(LOC) 3EX.2; GLUCOSE,POINT OF CARE 112 MG/DL (70-110)
[2022-08-26] MEDS: ATORVASTATIN CALCIUM 10 MG TABLET PO SCH (08:01)
[2022-08-26] MEDS: RisperiDONE 2 MG TABLET PO SCH ×2 (08:02→21:25)
[2022-08-26] MEDS: AmLODIPine BESYLATE 5 MG TABLET PO SCH (08:02)
[2022-08-26 08:05] VITALS: BP 155/79; PULSE 89; RESP 18; TEMP 97.6
[2022-08-26] MEDS: VALPROIC ACID 250 MG/5 ML SOLUTION UDCUP PO SCH ×2 (09:08→21:27)
[2022-08-26 16:33] LABS: GLUCOMETER DEV NAME(LOC) 3EX.2; GLUCOSE,POINT OF CARE 140 MG/DL (70-110)
[2022-08-26] MEDS: HALOPERIDOL 5 MG TABLET PO PRN (20:10)
[2022-08-26] MEDS: LORazepam 2 MG TABLET PO PRN (20:10)
[2022-08-26 20:44] VITALS: BP 136/82; PULSE 78; RESP 18; TEMP 98.1
[2022-08-26] MEDS: ZOLPIDEM TARTRATE 10 MG TABLET PO PRN (21:25)
[2022-08-27 05:32] LABS: GLUCOMETER DEV NAME(LOC) 3EX.2; GLUCOSE,POINT OF CARE 110 MG/DL (70-110)
[2022-08-27] MEDS: MetFORMIN HCL 500 MG TABLET PO SCH ×2 (06:38→17:51)
[2022-08-27 08:13] VITALS: BP 155/78; PULSE 81; RESP 18; TEMP 97.4
[2022-08-27] MEDS: ATORVASTATIN CALCIUM 10 MG TABLET PO SCH (08:28)
[2022-08-27] MEDS: VALPROIC ACID 250 MG/5 ML SOLUTION UDCUP PO SCH ×2 (08:30→20:28)
[2022-08-27] MEDS: RisperiDONE 2 MG TABLET PO SCH ×2 (08:30→20:29)
[2022-08-27] MEDS: AmLODIPine BESYLATE 5 MG TABLET PO SCH (08:30)
[2022-08-27] MEDS: HALOPERIDOL 5 MG TABLET PO PRN (16:07)
[2022-08-27 16:26] LABS: GLUCOMETER DEV NAME(LOC) 3EX.2; GLUCOSE,POINT OF CARE 159 MG/DL (70-110)
[2022-08-27] MEDS: LORazepam 2 MG TABLET PO PRN (18:36)
[2022-08-27 20:14] VITALS: RESP 20
[2022-08-27 20:16] VITALS: BP 142/78; PULSE 88; RESP 18; TEMP 97.5
[2022-08-27] MEDS: ZOLPIDEM TARTRATE 10 MG TABLET PO PRN (20:30)
[2022-08-28] MEDS: MetFORMIN HCL 500 MG TABLET PO SCH ×2 (06:25→17:27)
[2022-08-28 07:31] LABS: GLUCOMETER DEV NAME(LOC) 3EX.2; GLUCOSE,POINT OF CARE 135 MG/DL (70-110)
[2022-08-28] MEDS: HALOPERIDOL 5 MG TABLET PO PRN (07:54)
[2022-08-28] MEDS: LORazepam 2 MG TABLET PO PRN (07:54)
[2022-08-28] MEDS: ATORVASTATIN CALCIUM 10 MG TABLET PO SCH (07:55)
[2022-08-28] MEDS: AmLODIPine BESYLATE 5 MG TABLET PO SCH (07:55)
[2022-08-28] MEDS: RisperiDONE 2 MG TABLET PO SCH ×2 (07:55→20:47)
[2022-08-28] MEDS: VALPROIC ACID 250 MG/5 ML SOLUTION UDCUP PO SCH ×2 (07:55→20:55)
[2022-08-28 08:17] VITALS: BP 129/82; PULSE 82; RESP 18; TEMP 97.7
[2022-08-28 17:19] LABS: GLUCOMETER DEV NAME(LOC) 3EX.2; GLUCOSE,POINT OF CARE 125 MG/DL (70-110)
[2022-08-28 20:37] VITALS: BP 121/74; PULSE 84; RESP 18; TEMP 97.5
[2022-08-28] MEDS: ZOLPIDEM TARTRATE 10 MG TABLET PO PRN (20:47)
[2022-08-29] MEDS: MetFORMIN HCL 500 MG TABLET PO SCH ×2 (06:32→16:59)
[2022-08-29 07:24] LABS: GLUCOMETER DEV NAME(LOC) 3EX.2; GLUCOSE,POINT OF CARE 133 MG/DL (70-110)
[2022-08-29 08:36] VITALS: RESP 18
[2022-08-29] MEDS: RisperiDONE 2 MG TABLET PO SCH ×2 (08:39→21:01)
[2022-08-29] MEDS: VALPROIC ACID 250 MG/5 ML SOLUTION UDCUP PO SCH ×2 (08:39→21:01)
[2022-08-29] MEDS: AmLODIPine BESYLATE 5 MG TABLET PO SCH (08:39)
[2022-08-29] MEDS: LORazepam 2 MG TABLET PO PRN ×3 (08:39→20:45)
[2022-08-29] MEDS: ATORVASTATIN CALCIUM 10 MG TABLET PO SCH (08:40)
[2022-08-29] MEDS: CloNIDine 0.1 MG/24 HOUR PATCH TD SCH (08:41)
[2022-08-29] MEDS: HALOPERIDOL 5 MG TABLET PO PRN ×2 (12:40→20:45)
[2022-08-29 17:31] LABS: GLUCOMETER DEV NAME(LOC) 3EX.2; GLUCOSE,POINT OF CARE 119 MG/DL (70-110)
[2022-08-29 20:35] VITALS: BP 132/82; PULSE 86; RESP 18; TEMP 98.1
[2022-08-30] MEDS: MetFORMIN HCL 500 MG TABLET PO SCH ×2 (07:04→16:57)
[2022-08-30 07:06] LABS: GLUCOMETER DEV NAME(LOC) 3EX.2; GLUCOSE,POINT OF CARE 94 MG/DL (70-110)
[2022-08-30] MEDS: VALPROIC ACID 250 MG/5 ML SOLUTION UDCUP PO SCH ×2 (08:16→20:57)
[2022-08-30] MEDS: HALOPERIDOL 5 MG TABLET PO PRN ×3 (08:17→18:27)
[2022-08-30] MEDS: LORazepam 2 MG TABLET PO PRN ×2 (08:17→20:57)
[2022-08-30] MEDS: RisperiDONE 2 MG TABLET PO SCH ×2 (08:17→20:57)
[2022-08-30] MEDS: AmLODIPine BESYLATE 5 MG TABLET PO SCH (08:17)
[2022-08-30] MEDS: ATORVASTATIN CALCIUM 10 MG TABLET PO SCH (08:18)
[2022-08-30 08:47] VITALS: BP 153/76; PULSE 82; RESP 17; TEMP 97.9
[2022-08-30] MEDS ORDERED: TUBERCULIN, PURIFIED PROTEIN DERIVATIVE 5 TU/0.1 ML SYRINGE ID ONE (14:15)
[2022-08-30 17:01] LABS: GLUCOMETER DEV NAME(LOC) 3EX.2; GLUCOSE,POINT OF CARE 119 MG/DL (70-110)
[2022-08-30] MEDS: ZOLPIDEM TARTRATE 10 MG TABLET PO PRN (20:57)
[2022-08-31 05:32] LABS: GLUCOMETER DEV NAME(LOC) 3EX.2; GLUCOSE,POINT OF CARE 192 MG/DL (70-110)
[2022-08-31] MEDS: MetFORMIN HCL 500 MG TABLET PO SCH ×2 (07:03→16:26)
[2022-08-31] MEDS ORDERED: BACITRACIN 28 GM OINTMENT TP PRN (08:00)
[2022-08-31] MEDS: HALOPERIDOL 5 MG TABLET PO PRN ×2 (08:16→16:27)
[2022-08-31] MEDS: VALPROIC ACID 250 MG/5 ML SOLUTION UDCUP PO SCH ×2 (08:16→20:57)
[2022-08-31] MEDS: RisperiDONE 2 MG TABLET PO SCH ×2 (08:17→20:57)
[2022-08-31] MEDS: AmLODIPine BESYLATE 5 MG TABLET PO SCH (08:17)
[2022-08-31] MEDS: ATORVASTATIN CALCIUM 10 MG TABLET PO SCH (08:17)
[2022-08-31 09:00] VITALS: TEMP 97.9
[2022-08-31 17:01] LABS: GLUCOMETER DEV NAME(LOC) 3EX.2; GLUCOSE,POINT OF CARE 129 MG/DL (70-110)
[2022-08-31 20:03] VITALS: BP 138/77; PULSE 64; RESP 18; TEMP 98.1
[2022-08-31] MEDS: ZOLPIDEM TARTRATE 10 MG TABLET PO PRN (21:00)
[2022-08-31] MEDS: LORazepam 2 MG TABLET PO PRN (21:00)
[2022-09-01] MEDS: MetFORMIN HCL 500 MG TABLET PO SCH ×2 (06:45→17:47)
[2022-09-01 06:46] LABS: GLUCOMETER DEV NAME(LOC) 3EX.2; GLUCOSE,POINT OF CARE 123 MG/DL (70-110)
[2022-09-01] MEDS: AmLODIPine BESYLATE 5 MG TABLET PO SCH (07:24)
[2022-09-01] MEDS: ATORVASTATIN CALCIUM 10 MG TABLET PO SCH (07:25)
[2022-09-01] MEDS: LORazepam 2 MG TABLET PO PRN ×2 (07:25→13:02)
[2022-09-01] MEDS: RisperiDONE 2 MG TABLET PO SCH ×2 (07:25→20:50)
[2022-09-01] MEDS: VALPROIC ACID 250 MG/5 ML SOLUTION UDCUP PO SCH ×2 (07:25→20:50)
[2022-09-01 08:10] VITALS: BP 133/74; PULSE 84; RESP 18; TEMP 97.8
[2022-09-01] MEDS: HALOPERIDOL 5 MG TABLET PO PRN (13:02)
[2022-09-01 17:21] LABS: GLUCOMETER DEV NAME(LOC) 3EX.2; GLUCOSE,POINT OF CARE 173 MG/DL (70-110)
[2022-09-02 06:12] LABS: GLUCOMETER DEV NAME(LOC) 3EX.2; GLUCOSE,POINT OF CARE 82 MG/DL (70-110)
[2022-09-02] MEDS: MetFORMIN HCL 500 MG TABLET PO SCH ×2 (06:42→16:41)
[2022-09-02 08:20] VITALS: BP 133/69; PULSE 80; RESP 18; TEMP 97.1
[2022-09-02] MEDS: VALPROIC ACID 250 MG/5 ML SOLUTION UDCUP PO SCH ×2 (08:33→20:20)
[2022-09-02] MEDS: AmLODIPine BESYLATE 5 MG TABLET PO SCH (08:33)
[2022-09-02] MEDS: RisperiDONE 2 MG TABLET PO SCH ×2 (08:34→20:20)
[2022-09-02] MEDS: ATORVASTATIN CALCIUM 10 MG TABLET PO SCH (08:34)
[2022-09-02] MEDS: HALOPERIDOL 5 MG TABLET PO PRN (16:42)
[2022-09-02 17:01] LABS: GLUCOMETER DEV NAME(LOC) 3EX.2; GLUCOSE,POINT OF CARE 218 MG/DL (70-110)
[2022-09-02 20:08] VITALS: RESP 20
[2022-09-03] MEDS: ZOLPIDEM TARTRATE 10 MG TABLET PO PRN ×2 (01:59→21:14)
[2022-09-03] MEDS: HALOPERIDOL 5 MG TABLET PO PRN ×3 (01:59→17:52)
[2022-09-03] MEDS: MetFORMIN HCL 500 MG TABLET PO SCH ×2 (06:51→17:51)
[2022-09-03] MEDS: RisperiDONE 2 MG TABLET PO SCH ×2 (09:34→20:40)
[2022-09-03] MEDS: AmLODIPine BESYLATE 5 MG TABLET PO SCH (09:34)
[2022-09-03] MEDS: ATORVASTATIN CALCIUM 10 MG TABLET PO SCH (09:34)
[2022-09-03] MEDS: VALPROIC ACID 250 MG/5 ML SOLUTION UDCUP PO SCH ×2 (09:35→20:40)
[2022-09-03 10:46] LABS: GLUCOMETER DEV NAME(LOC) 3EX.2; GLUCOSE,POINT OF CARE 88 MG/DL (70-110)
[2022-09-03 12:16] VITALS: BP 139/69; PULSE 89; RESP 19; TEMP 97.9
[2022-09-03] MEDS: LORazepam 2 MG TABLET PO PRN ×2 (13:45→17:51)
[2022-09-03 16:47] LABS: GLUCOMETER DEV NAME(LOC) 3EX.2; GLUCOSE,POINT OF CARE 108 MG/DL (70-110)
[2022-09-03 20:29] VITALS: BP 137/82; PULSE 86; RESP 20; TEMP 98.1
[2022-09-04] MEDS: MetFORMIN HCL 500 MG TABLET PO SCH ×2 (06:50→16:46)
[2022-09-04 07:01] LABS: GLUCOMETER DEV NAME(LOC) 3EX.2; GLUCOSE,POINT OF CARE 101 MG/DL (70-110)
[2022-09-04 08:00] VITALS: BP 131/69; PULSE 75; RESP 18; TEMP 97.2
[2022-09-04] MEDS: VALPROIC ACID 250 MG/5 ML SOLUTION UDCUP PO SCH ×2 (08:45→20:19)
[2022-09-04] MEDS: ATORVASTATIN CALCIUM 10 MG TABLET PO SCH (08:45)
[2022-09-04] MEDS: AmLODIPine BESYLATE 5 MG TABLET PO SCH (08:45)
[2022-09-04] MEDS: RisperiDONE 2 MG TABLET PO SCH ×2 (08:46→20:19)
[2022-09-04] MEDS: LORazepam 2 MG TABLET PO PRN ×3 (08:46→19:32)
[2022-09-04] MEDS: HALOPERIDOL 5 MG TABLET PO PRN (14:48)
[2022-09-04 17:11] LABS: GLUCOMETER DEV NAME(LOC) 3EX.2; GLUCOSE,POINT OF CARE 125 MG/DL (70-110)
[2022-09-04 20:09] VITALS: RESP 20
[2022-09-04] MEDS: ZOLPIDEM TARTRATE 10 MG TABLET PO PRN (21:16)
[2022-09-05] MEDS: MetFORMIN HCL 500 MG TABLET PO SCH ×2 (06:44→17:10)
[2022-09-05 06:56] LABS: GLUCOMETER DEV NAME(LOC) 3EX.2; GLUCOSE,POINT OF CARE 87 MG/DL (70-110)
[2022-09-05 08:30] VITALS: BP 125/66; PULSE 79; RESP 18; TEMP 97.6
[2022-09-05] MEDS: VALPROIC ACID 250 MG/5 ML SOLUTION UDCUP PO SCH ×2 (08:35→20:21)
[2022-09-05] MEDS: RisperiDONE 2 MG TABLET PO SCH ×2 (08:36→20:21)
[2022-09-05] MEDS: ATORVASTATIN CALCIUM 10 MG TABLET PO SCH (08:36)
[2022-09-05] MEDS: AmLODIPine BESYLATE 5 MG TABLET PO SCH (08:37)
[2022-09-05] MEDS: CloNIDine 0.1 MG/24 HOUR PATCH TD SCH (09:00)
[2022-09-05 16:46] LABS: GLUCOMETER DEV NAME(LOC) 3EX.2; GLUCOSE,POINT OF CARE 113 MG/DL (70-110)
[2022-09-05] MEDS: LORazepam 2 MG TABLET PO PRN (19:34)
[2022-09-05 20:04] VITALS: RESP 20
[2022-09-05] MEDS: ZOLPIDEM TARTRATE 10 MG TABLET PO PRN (22:41)
[2022-09-06] MEDS: MetFORMIN HCL 500 MG TABLET PO SCH ×2 (06:37→17:40)
[2022-09-06 06:51] LABS: GLUCOMETER DEV NAME(LOC) 3EX.2; GLUCOSE,POINT OF CARE 100 MG/DL (70-110)
[2022-09-06] MEDS: RisperiDONE 2 MG TABLET PO SCH ×2 (08:33→20:36)
[2022-09-06] MEDS: ATORVASTATIN CALCIUM 10 MG TABLET PO SCH (08:33)
[2022-09-06] MEDS: AmLODIPine BESYLATE 5 MG TABLET PO SCH (08:33)
[2022-09-06] MEDS: VALPROIC ACID 250 MG/5 ML SOLUTION UDCUP PO SCH ×2 (08:34→20:37)
[2022-09-06 08:52] VITALS: BP 125/70; PULSE 80; RESP 18; TEMP 97.6
[2022-09-06 17:16] LABS: GLUCOMETER DEV NAME(LOC) 3EX.2; GLUCOSE,POINT OF CARE 127 MG/DL (70-110)
[2022-09-06 20:12] VITALS: BP 132/84; PULSE 82; RESP 18; TEMP 97
[2022-09-06] MEDS: ZOLPIDEM TARTRATE 10 MG TABLET PO PRN (21:01)
[2022-09-07] MEDS: MetFORMIN HCL 500 MG TABLET PO SCH ×2 (06:40→16:28)
[2022-09-07 06:46] LABS: GLUCOMETER DEV NAME(LOC) 3EX.2; GLUCOSE,POINT OF CARE 123 MG/DL (70-110)
[2022-09-07] MEDS: RisperiDONE 2 MG TABLET PO SCH ×2 (07:59→20:42)
[2022-09-07] MEDS: ATORVASTATIN CALCIUM 10 MG TABLET PO SCH (07:59)
[2022-09-07] MEDS: VALPROIC ACID 250 MG/5 ML SOLUTION UDCUP PO SCH ×2 (07:59→20:41)
[2022-09-07] MEDS: AmLODIPine BESYLATE 5 MG TABLET PO SCH (07:59)
[2022-09-07] MEDS: LORazepam 2 MG TABLET PO PRN ×2 (07:59→16:28)
[2022-09-07 08:27] VITALS: BP 126/71; PULSE 81; RESP 18; TEMP 97.1
[2022-09-07] MEDS: HALOPERIDOL 5 MG TABLET PO PRN (16:28)
[2022-09-07 18:02] LABS: GLUCOMETER DEV NAME(LOC) 3EX.2; GLUCOSE,POINT OF CARE 112 MG/DL (70-110)
[2022-09-07 21:32] VITALS: BP 128/74; PULSE 78; RESP 18; TEMP 97.2
[2022-09-07] MEDS: ZOLPIDEM TARTRATE 10 MG TABLET PO PRN (21:35)
[2022-09-08 06:51] LABS: GLUCOMETER DEV NAME(LOC) 3EX.2; GLUCOSE,POINT OF CARE 94 MG/DL (70-110)
[2022-09-08] MEDS: MetFORMIN HCL 500 MG TABLET PO SCH ×2 (06:53→17:16)
[2022-09-08] MEDS: VALPROIC ACID 250 MG/5 ML SOLUTION UDCUP PO SCH ×2 (08:48→21:14)
[2022-09-08] MEDS: AmLODIPine BESYLATE 5 MG TABLET PO SCH ×2 (08:49→09:00)
[2022-09-08] MEDS: ATORVASTATIN CALCIUM 10 MG TABLET PO SCH (08:49)
[2022-09-08] MEDS: RisperiDONE 2 MG TABLET PO SCH ×2 (08:49→21:14)
[2022-09-08 10:56] LABS: GLUCOMETER DEV NAME(LOC) 3EX.2; GLUCOSE,POINT OF CARE 88 MG/DL (70-110)
[2022-09-08 11:17] VITALS: BP 100/61; PULSE 81; RESP 18; TEMP 97.1
[2022-09-08 16:51] LABS: GLUCOMETER DEV NAME(LOC) 3EX.2; GLUCOSE,POINT OF CARE 142 MG/DL (70-110)
[2022-09-08 20:04] VITALS: BP 131/74; PULSE 84; RESP 18; TEMP 98.1
[2022-09-08] MEDS: ZOLPIDEM TARTRATE 10 MG TABLET PO PRN (21:14)
[2022-09-09] MEDS: MetFORMIN HCL 500 MG TABLET PO SCH ×2 (06:49→18:15)
[2022-09-09 06:56] LABS: GLUCOMETER DEV NAME(LOC) 3EX.2; GLUCOSE,POINT OF CARE 89 MG/DL (70-110)
[2022-09-09 08:25] VITALS: BP 125/77; PULSE 73; RESP 18; TEMP 97.5
[2022-09-09] MEDS: RisperiDONE 2 MG TABLET PO SCH ×2 (08:26→20:01)
[2022-09-09] MEDS: VALPROIC ACID 250 MG/5 ML SOLUTION UDCUP PO SCH ×2 (08:27→20:01)
[2022-09-09] MEDS: ATORVASTATIN CALCIUM 10 MG TABLET PO SCH (08:27)
[2022-09-09] MEDS: AmLODIPine BESYLATE 5 MG TABLET PO SCH (08:27)
[2022-09-09 17:06] LABS: GLUCOMETER DEV NAME(LOC) 3EX.2; GLUCOSE,POINT OF CARE 159 MG/DL (70-110)
[2022-09-09] MEDS: HALOPERIDOL 5 MG TABLET PO PRN (20:01)
[2022-09-09] MEDS: LORazepam 2 MG TABLET PO PRN (20:01)
[2022-09-09 20:10] VITALS: RESP 20
[2022-09-09] MEDS: ZOLPIDEM TARTRATE 10 MG TABLET PO PRN (21:41)
[2022-09-10 05:57] LABS: GLUCOMETER DEV NAME(LOC) 3EX.2; GLUCOSE,POINT OF CARE 89 MG/DL (70-110)
[2022-09-10] MEDS: MetFORMIN HCL 500 MG TABLET PO SCH ×2 (06:38→17:35)
[2022-09-10 09:15] VITALS: BP 117/66; PULSE 81; RESP 18; TEMP 97.2
[2022-09-10] MEDS: ATORVASTATIN CALCIUM 10 MG TABLET PO SCH (09:35)
[2022-09-10] MEDS: RisperiDONE 2 MG TABLET PO SCH ×2 (09:36→20:25)
[2022-09-10] MEDS: AmLODIPine BESYLATE 5 MG TABLET PO SCH (09:36)
[2022-09-10] MEDS: VALPROIC ACID 250 MG/5 ML SOLUTION UDCUP PO SCH ×2 (09:37→20:25)
[2022-09-10 17:41] LABS: GLUCOMETER DEV NAME(LOC) 3EX.2; GLUCOSE,POINT OF CARE 240 MG/DL (70-110)
[2022-09-10] MEDS: LORazepam 2 MG TABLET PO PRN (19:22)
[2022-09-10 20:03] VITALS: RESP 20
[2022-09-10] MEDS: ZOLPIDEM TARTRATE 10 MG TABLET PO PRN (21:21)
[2022-09-11] MEDS: MetFORMIN HCL 500 MG TABLET PO SCH ×2 (06:37→17:40)
[2022-09-11 06:42] LABS: GLUCOMETER DEV NAME(LOC) 3EX.2; GLUCOSE,POINT OF CARE 96 MG/DL (70-110)
[2022-09-11 08:20] VITALS: BP 105/61; PULSE 78; RESP 18; TEMP 97.6
[2022-09-11] MEDS: AmLODIPine BESYLATE 5 MG TABLET PO SCH (09:00)
[2022-09-11] MEDS: ATORVASTATIN CALCIUM 10 MG TABLET PO SCH (09:00)
[2022-09-11] MEDS: RisperiDONE 2 MG TABLET PO SCH ×2 (09:00→20:22)
[2022-09-11] MEDS: VALPROIC ACID 250 MG/5 ML SOLUTION UDCUP PO SCH ×2 (09:01→20:37)
[2022-09-11 16:37] LABS: GLUCOMETER DEV NAME(LOC) 3EX.2; GLUCOSE,POINT OF CARE 136 MG/DL (70-110)
[2022-09-11] MEDS: LORazepam 2 MG TABLET PO PRN (19:17)
[2022-09-11 20:02] VITALS: BP 106/77; PULSE 80; RESP 18; TEMP 98.1
[2022-09-11 20:18] VITALS: RESP 18
[2022-09-11] MEDS: ZOLPIDEM TARTRATE 10 MG TABLET PO PRN (21:25)
[2022-09-12] MEDS: MetFORMIN HCL 500 MG TABLET PO SCH ×2 (06:37→17:22)
[2022-09-12 06:46] LABS: GLUCOMETER DEV NAME(LOC) 3EX.2; GLUCOSE,POINT OF CARE 103 MG/DL (70-110)
[2022-09-12 08:34] VITALS: BP 111/60; PULSE 81; RESP 18; TEMP 97.6
[2022-09-12] MEDS: CloNIDine 0.1 MG/24 HOUR PATCH TD SCH (09:00)
[2022-09-12] MEDS: VALPROIC ACID 250 MG/5 ML SOLUTION UDCUP PO SCH (09:00)
[2022-09-12] MEDS: LORazepam 2 MG TABLET PO PRN ×2 (09:14→19:14)
[2022-09-12] MEDS: RisperiDONE 2 MG TABLET PO SCH ×2 (09:15→20:37)
[2022-09-12] MEDS: AmLODIPine BESYLATE 5 MG TABLET PO SCH (09:16)
[2022-09-12] MEDS: ATORVASTATIN CALCIUM 10 MG TABLET PO SCH (09:16)
[2022-09-12 16:37] LABS: GLUCOMETER DEV NAME(LOC) 3EX.2; GLUCOSE,POINT OF CARE 115 MG/DL (70-110)
[2022-09-12] MEDS: HALOPERIDOL 5 MG TABLET PO PRN (17:22)
[2022-09-12 20:30] VITALS: RESP 19
[2022-09-12] MEDS: DIVALPROEX SODIUM 500 MG DR TABLET PO SCH (20:36)
[2022-09-13] MEDS: MetFORMIN HCL 500 MG TABLET PO SCH ×2 (06:38→17:05)
[2022-09-13 06:46] LABS: GLUCOMETER DEV NAME(LOC) 3EX.2; GLUCOSE,POINT OF CARE 100 MG/DL (70-110)
[2022-09-13 08:13] VITALS: BP 131/77; PULSE 73; RESP 19; TEMP 97.6; O2SAT 98
[2022-09-13] MEDS: ATORVASTATIN CALCIUM 10 MG TABLET PO SCH (08:18)
[2022-09-13] MEDS: RisperiDONE 2 MG TABLET PO SCH ×2 (08:18→21:00)
[2022-09-13] MEDS: DIVALPROEX SODIUM 500 MG DR TABLET PO SCH ×2 (08:18→21:00)
[2022-09-13] MEDS: AmLODIPine BESYLATE 5 MG TABLET PO SCH (08:19)
[2022-09-13] MEDS ORDERED: PALIPERIDONE PALMITATE 234 MG/1.5 ML SYRINGE IM ONE (09:00)
[2022-09-13 09:22] VITALS: BP 133/77; PULSE 73; RESP 19; TEMP 97.6
[2022-09-13 16:41] LABS: GLUCOMETER DEV NAME(LOC) 3EX.2; GLUCOSE,POINT OF CARE 184 MG/DL (70-110)
[2022-09-13] MEDS: HALOPERIDOL 5 MG TABLET PO PRN (19:58)
[2022-09-13] MEDS: LORazepam 2 MG TABLET PO PRN (19:58)
[2022-09-13 20:42] VITALS: BP 134/78; PULSE 82; RESP 18; TEMP 98.2
[2022-09-13] MEDS: ZOLPIDEM TARTRATE 10 MG TABLET PO PRN (21:02)
[2022-09-14 06:16] LABS: GLUCOMETER DEV NAME(LOC) 3EX.2; GLUCOSE,POINT OF CARE 104 MG/DL (70-110)
[2022-09-14] MEDS: MetFORMIN HCL 500 MG TABLET PO SCH ×2 (06:38→16:24)
[2022-09-14] MEDS: AmLODIPine BESYLATE 5 MG TABLET PO SCH ×2 (08:24→09:00)
[2022-09-14] MEDS: DIVALPROEX SODIUM 500 MG DR TABLET PO SCH ×2 (08:25→21:34)
[2022-09-14] MEDS: ATORVASTATIN CALCIUM 10 MG TABLET PO SCH (08:25)
[2022-09-14] MEDS: RisperiDONE 2 MG TABLET PO SCH ×2 (08:26→21:34)
[2022-09-14 11:56] VITALS: BP 126/61; PULSE 92; TEMP 97.8
[2022-09-14 17:06] LABS: GLUCOMETER DEV NAME(LOC) 3EX.2; GLUCOSE,POINT OF CARE 137 MG/DL (70-110)
[2022-09-14] MEDS: LORazepam 2 MG TABLET PO PRN (20:10)
[2022-09-14] MEDS: ZOLPIDEM TARTRATE 10 MG TABLET PO PRN (21:34)
[2022-09-14 22:10] VITALS: BP 149/73; PULSE 97; RESP 17; TEMP 97.8
[2022-09-15 05:41] LABS: GLUCOMETER DEV NAME(LOC) 3EX.2; GLUCOSE,POINT OF CARE 97 MG/DL (70-110)
[2022-09-15] MEDS: MetFORMIN HCL 500 MG TABLET PO SCH ×2 (06:39→16:51)
[2022-09-15 08:23] VITALS: BP 93/60; PULSE 96; RESP 18; TEMP 97.7
[2022-09-15] MEDS: DIVALPROEX SODIUM 500 MG DR TABLET PO SCH ×2 (08:43→21:17)
[2022-09-15] MEDS: RisperiDONE 2 MG TABLET PO SCH ×2 (08:44→21:17)
[2022-09-15] MEDS: AmLODIPine BESYLATE 5 MG TABLET PO SCH (08:44)
[2022-09-15] MEDS: ATORVASTATIN CALCIUM 10 MG TABLET PO SCH (08:44)
[2022-09-15] MEDS: LORazepam 2 MG TABLET PO PRN ×2 (16:51→19:15)
[2022-09-15] MEDS: HALOPERIDOL 5 MG TABLET PO PRN ×2 (16:52→19:15)
[2022-09-15 16:56] LABS: GLUCOMETER DEV NAME(LOC) 3EX.2; GLUCOSE,POINT OF CARE 131 MG/DL (70-110)
[2022-09-15 20:36] VITALS: BP 136/71; PULSE 87; RESP 17; TEMP 97.5
[2022-09-15] MEDS: ZOLPIDEM TARTRATE 10 MG TABLET PO PRN (21:18)
[2022-09-16 05:36] LABS: GLUCOMETER DEV NAME(LOC) 3EX.2; GLUCOSE,POINT OF CARE 91 MG/DL (70-110)
[2022-09-16] MEDS: MetFORMIN HCL 500 MG TABLET PO SCH ×2 (06:40→17:24)
[2022-09-16 08:26] VITALS: BP 106/59; PULSE 78; RESP 18; TEMP 97.6
[2022-09-16] MEDS: AmLODIPine BESYLATE 5 MG TABLET PO SCH ×2 (09:00→09:06)
[2022-09-16] MEDS: RisperiDONE 2 MG TABLET PO SCH ×2 (09:06→21:20)
[2022-09-16] MEDS: ATORVASTATIN CALCIUM 10 MG TABLET PO SCH (09:06)
[2022-09-16] MEDS: DIVALPROEX SODIUM 500 MG DR TABLET PO SCH ×2 (09:06→21:20)
[2022-09-16] MEDS: HALOPERIDOL 5 MG TABLET PO PRN (09:08)
[2022-09-16 16:41] LABS: GLUCOMETER DEV NAME(LOC) 3EX.2; GLUCOSE,POINT OF CARE 159 MG/DL (70-110)
[2022-09-16 20:04] VITALS: BP 136/67; PULSE 83; RESP 19; TEMP 98
[2022-09-16] MEDS: LORazepam 2 MG TABLET PO PRN (21:20)
[2022-09-16] MEDS: ZOLPIDEM TARTRATE 10 MG TABLET PO PRN (21:48)
[2022-09-17 06:26] LABS: GLUCOMETER DEV NAME(LOC) 3EX.2; GLUCOSE,POINT OF CARE 95 MG/DL (70-110)
[2022-09-17] MEDS: MetFORMIN HCL 500 MG TABLET PO SCH ×2 (06:54→17:28)
[2022-09-17] MEDS: RisperiDONE 2 MG TABLET PO SCH ×2 (08:13→21:08)
[2022-09-17] MEDS: AmLODIPine BESYLATE 5 MG TABLET PO SCH (08:13)
[2022-09-17] MEDS: LORazepam 2 MG TABLET PO PRN (08:13)
[2022-09-17] MEDS: DIVALPROEX SODIUM 500 MG DR TABLET PO SCH ×2 (08:13→21:08)
[2022-09-17] MEDS: ATORVASTATIN CALCIUM 10 MG TABLET PO SCH (08:13)
[2022-09-17 08:14] VITALS: BP 134/71; PULSE 81; RESP 18; TEMP 97.9
[2022-09-17] MEDS ORDERED: PALIPERIDONE PALMITATE 156 MG/ML SYRINGE IM ONE (09:00)
[2022-09-17 15:09] LABS: APPEARANCE,URINE CLEAR (CLEAR); BILIRUBIN,URINE NEGATIVE (NEGATIVE); COLOR,URINE LIGHT YELLOW (YELLOW); GLUCOSE, URINE (UA) NEGATIVE (NEGATIVE); LEUKOCYTE ESTERASE ,URINE SMALL (NEGATIVE); NITRATE,URINE NEGATIVE (NEGATIVE); OCCULT BLOOD,URINE NEGATIVE (NEGATIVE); PH,URINE 6.5 (5.0-8.0); PROTEIN,URINE NEGATIVE (NEGATIVE); SPECIFIC GRAVITIY, URINE 1.012 (1.003-1.030); UROBILINOGEN,URINE <=1.0 mg/dL (<=1.0)
[2022-09-17 15:20] LABS: BACTERIA,URINE Few /HPF (None Seen); RBC,URINE 0-2 /HPF (0-2); SQUAMOUS EPITHELIAL CELL,UR Few /LPF (None Seen)
[2022-09-17 17:06] LABS: GLUCOMETER DEV NAME(LOC) 3EX.2; GLUCOSE,POINT OF CARE 176 MG/DL (70-110)
[2022-09-17 20:08] VITALS: BP 132/82; PULSE 82; RESP 20; TEMP 97.1
[2022-09-17] MEDS: ZOLPIDEM TARTRATE 10 MG TABLET PO PRN (21:09)
[2022-09-18] MEDS: MetFORMIN HCL 500 MG TABLET PO SCH ×2 (06:37→17:18)
[2022-09-18 07:06] LABS: GLUCOMETER DEV NAME(LOC) 3EX.2; GLUCOSE,POINT OF CARE 95 MG/DL (70-110)
[2022-09-18 08:34] VITALS: BP 125/67; PULSE 75; RESP 17; TEMP 97.7
[2022-09-18] MEDS: AmLODIPine BESYLATE 5 MG TABLET PO SCH (09:00)
[2022-09-18] MEDS: ATORVASTATIN CALCIUM 10 MG TABLET PO SCH (09:00)
[2022-09-18] MEDS: DIVALPROEX SODIUM 500 MG DR TABLET PO SCH ×2 (09:00→20:33)
[2022-09-18] MEDS: LORazepam 2 MG TABLET PO PRN (09:00)
[2022-09-18] MEDS: RisperiDONE 2 MG TABLET PO SCH ×2 (09:00→20:33)
[2022-09-18 17:00] LABS: GLUCOMETER DEV NAME(LOC) 3EX.2; GLUCOSE,POINT OF CARE 114 MG/DL (70-110)
[2022-09-18] MEDS: HALOPERIDOL 5 MG TABLET PO PRN (17:18)
[2022-09-18 20:08] VITALS: BP 131/76; PULSE 82; RESP 18; TEMP 97.1
[2022-09-18] MEDS: ZOLPIDEM TARTRATE 10 MG TABLET PO PRN (20:33)
[2022-09-19] MEDS: MetFORMIN HCL 500 MG TABLET PO SCH ×2 (06:40→17:39)
[2022-09-19 07:21] LABS: GLUCOMETER DEV NAME(LOC) 3EX.2; GLUCOSE,POINT OF CARE 99 MG/DL (70-110)
[2022-09-19 08:22] VITALS: BP 120/70; PULSE 86; RESP 17; TEMP 98.1
[2022-09-19] MEDS: AmLODIPine BESYLATE 5 MG TABLET PO SCH (09:00)
[2022-09-19] MEDS: ATORVASTATIN CALCIUM 10 MG TABLET PO SCH (09:00)
[2022-09-19] MEDS: RisperiDONE 3 MG TABLET PO SCH ×2 (09:00→21:00)
[2022-09-19] MEDS: CloNIDine 0.1 MG/24 HOUR PATCH TD SCH (09:00)
[2022-09-19] MEDS: DIVALPROEX SODIUM 500 MG DR TABLET PO SCH ×2 (09:00→21:01)
[2022-09-19 16:41] LABS: GLUCOMETER DEV NAME(LOC) 3EX.2; GLUCOSE,POINT OF CARE 116 MG/DL (70-110)
[2022-09-19] MEDS: ZOLPIDEM TARTRATE 10 MG TABLET PO PRN (21:02)
[2022-09-19 21:17] VITALS: BP 148/76; PULSE 74; RESP 19; TEMP 97.1
[2022-09-20 06:45] LABS: GLUCOMETER DEV NAME(LOC) 3EX.2; GLUCOSE,POINT OF CARE 95 MG/DL (70-110)
[2022-09-20] MEDS: MetFORMIN HCL 500 MG TABLET PO SCH ×2 (07:03→16:35)
[2022-09-20] MEDS: AmLODIPine BESYLATE 5 MG TABLET PO SCH (08:39)
[2022-09-20] MEDS: DIVALPROEX SODIUM 500 MG DR TABLET PO SCH ×2 (08:39→20:59)
[2022-09-20] MEDS: RisperiDONE 3 MG TABLET PO SCH ×2 (08:39→20:59)
[2022-09-20] MEDS: ATORVASTATIN CALCIUM 10 MG TABLET PO SCH (08:40)
[2022-09-20 08:50] VITALS: BP 143/66; PULSE 84; RESP 17; TEMP 97.6
[2022-09-20] MEDS: LORazepam 2 MG TABLET PO PRN (15:34)
[2022-09-20] MEDS: HALOPERIDOL 5 MG TABLET PO PRN (15:34)
[2022-09-20 17:11] LABS: GLUCOMETER DEV NAME(LOC) 3EX.2; GLUCOSE,POINT OF CARE 147 MG/DL (70-110)
[2022-09-20 20:19] VITALS: BP 122/62; PULSE 83; RESP 18; TEMP 98.2
[2022-09-20] MEDS: ZOLPIDEM TARTRATE 10 MG TABLET PO PRN (20:59)
[2022-09-21] VITALS (9 sets, daily range): BP systolic 123–139; BP diastolic 49–74; PULSE 69–87; RESP 18; TEMP 97.6–98.1; O2SAT 96
[2022-09-21 07:27] LABS: GLUCOMETER DEV NAME(LOC) 3EX.2; GLUCOSE,POINT OF CARE 98 MG/DL (70-110)
[2022-09-21] MEDS: MetFORMIN HCL 500 MG TABLET PO SCH ×2 (07:33→16:51)
[2022-09-21] MEDS: ATORVASTATIN CALCIUM 10 MG TABLET PO SCH (08:59)
[2022-09-21] MEDS: AmLODIPine BESYLATE 5 MG TABLET PO SCH (09:01)
[2022-09-21] MEDS: RisperiDONE 3 MG TABLET PO SCH ×2 (09:01→20:59)
[2022-09-21] MEDS: DIVALPROEX SODIUM 500 MG DR TABLET PO SCH ×2 (09:01→20:59)
[2022-09-21 16:36] LABS: GLUCOMETER DEV NAME(LOC) 3EX.2; GLUCOSE,POINT OF CARE 140 MG/DL (70-110)
[2022-09-21] MEDS: LORazepam 2 MG TABLET PO PRN (20:59)
[2022-09-21] MEDS: ZOLPIDEM TARTRATE 10 MG TABLET PO PRN (21:24)
[2022-09-22] MEDS: MetFORMIN HCL 500 MG TABLET PO SCH ×2 (06:47→17:55)
[2022-09-22 06:51] LABS: GLUCOMETER DEV NAME(LOC) 3EX.2; GLUCOSE,POINT OF CARE 85 MG/DL (70-110)
[2022-09-22 08:06] LABS: CHOL/HDL RATIO 2.7 (3.9-5.7); POTASSIUM 3.7 mmol/L (3.5-5.1)
[2022-09-22 08:12] LABS: HEMOGLOBIN A1C 6.4 % (3.8-5.6)
[2022-09-22] MEDS: AmLODIPine BESYLATE 5 MG TABLET PO SCH (08:33)
[2022-09-22] MEDS: ATORVASTATIN CALCIUM 10 MG TABLET PO SCH (08:33)
[2022-09-22] MEDS: DIVALPROEX SODIUM 500 MG DR TABLET PO SCH ×2 (08:34→21:05)
[2022-09-22] MEDS: RisperiDONE 3 MG TABLET PO SCH ×2 (08:34→21:05)
[2022-09-22 08:39] VITALS: BP 118/65; PULSE 86; RESP 17; TEMP 97.9
[2022-09-22 16:40] LABS: GLUCOMETER DEV NAME(LOC) 3EX.2; GLUCOSE,POINT OF CARE 107 MG/DL (70-110)
[2022-09-22 20:22] VITALS: BP 145/80; PULSE 80; RESP 18; TEMP 98
[2022-09-22] MEDS: HALOPERIDOL 5 MG TABLET PO PRN (23:49)
[2022-09-22] MEDS: LORazepam 2 MG TABLET PO PRN (23:49)
[2022-09-23 06:56] LABS: GLUCOMETER DEV NAME(LOC) 3EX.2; GLUCOSE,POINT OF CARE 102 MG/DL (70-110)
[2022-09-23] MEDS: MetFORMIN HCL 500 MG TABLET PO SCH ×2 (07:24→18:12)
[2022-09-23] MEDS: ATORVASTATIN CALCIUM 10 MG TABLET PO SCH (09:36)
[2022-09-23] MEDS: DIVALPROEX SODIUM 500 MG DR TABLET PO SCH ×2 (09:36→20:42)
[2022-09-23] MEDS: RisperiDONE 3 MG TABLET PO SCH ×2 (09:36→20:37)
[2022-09-23] MEDS: AmLODIPine BESYLATE 5 MG TABLET PO SCH (09:36)
[2022-09-23 11:42] VITALS: BP 121/74; PULSE 73; RESP 18; TEMP 97.2
[2022-09-23 16:11] LABS: GLUCOMETER DEV NAME(LOC) 3EX.2; GLUCOSE,POINT OF CARE 132 MG/DL (70-110)
[2022-09-23] MEDS: ZOLPIDEM TARTRATE 10 MG TABLET PO PRN (20:38)
[2022-09-23 21:22] VITALS: BP 136/79; PULSE 95; RESP 17; TEMP 97.6
[2022-09-24] MEDS: MetFORMIN HCL 500 MG TABLET PO SCH ×2 (06:40→17:45)
[2022-09-24 07:16] LABS: GLUCOMETER DEV NAME(LOC) 3EX.2; GLUCOSE,POINT OF CARE 109 MG/DL (70-110)
[2022-09-24] MEDS: RisperiDONE 3 MG TABLET PO SCH ×2 (08:17→20:27)
[2022-09-24] MEDS: AmLODIPine BESYLATE 5 MG TABLET PO SCH (08:17)
[2022-09-24] MEDS: ATORVASTATIN CALCIUM 10 MG TABLET PO SCH (08:17)
[2022-09-24 08:20] VITALS: BP 134/84; PULSE 65; RESP 18; TEMP 97.1
[2022-09-24] MEDS: DIVALPROEX SODIUM 500 MG DR TABLET PO SCH ×2 (08:21→20:27)
[2022-09-24] MEDS: MAGNESIUM HYDROXIDE SUSPENSION 30 ML UDCUP PO PRN (11:29)
[2022-09-24 16:51] LABS: GLUCOMETER DEV NAME(LOC) 3EX.2; GLUCOSE,POINT OF CARE 137 MG/DL (70-110)
[2022-09-24] MEDS: LORazepam 2 MG TABLET PO PRN (19:29)
[2022-09-24 20:38] VITALS: BP 125/72; PULSE 70; RESP 18; TEMP 97.5
[2022-09-24] MEDS: ZOLPIDEM TARTRATE 10 MG TABLET PO PRN (21:50)
[2022-09-25] MEDS: MetFORMIN HCL 500 MG TABLET PO SCH ×2 (06:31→17:31)
[2022-09-25 06:36] LABS: GLUCOMETER DEV NAME(LOC) 3EX.2; GLUCOSE,POINT OF CARE 100 MG/DL (70-110)
[2022-09-25] MEDS: DIVALPROEX SODIUM 500 MG DR TABLET PO SCH ×2 (08:53→20:44)
[2022-09-25] MEDS: ATORVASTATIN CALCIUM 10 MG TABLET PO SCH (08:53)
[2022-09-25] MEDS: AmLODIPine BESYLATE 5 MG TABLET PO SCH (08:53)
[2022-09-25] MEDS: RisperiDONE 3 MG TABLET PO SCH ×2 (08:53→20:44)
[2022-09-25 11:10] VITALS: BP 115/66; PULSE 77
[2022-09-25 17:11] LABS: GLUCOMETER DEV NAME(LOC) 3EX.2; GLUCOSE,POINT OF CARE 85 MG/DL (70-110)
[2022-09-25] MEDS: LORazepam 2 MG TABLET PO PRN (20:24)
[2022-09-25 20:25] VITALS: BP 116/70; PULSE 78; RESP 18; TEMP 97.8
[2022-09-25] MEDS: ZOLPIDEM TARTRATE 10 MG TABLET PO PRN (21:28)
[2022-09-26] MEDS: MetFORMIN HCL 500 MG TABLET PO SCH ×2 (06:34→17:20)
[2022-09-26 06:41] LABS: GLUCOMETER DEV NAME(LOC) 3EX.2; GLUCOSE,POINT OF CARE 107 MG/DL (70-110)
[2022-09-26] MEDS: DIVALPROEX SODIUM 500 MG DR TABLET PO SCH ×3 (09:00→20:37)
[2022-09-26 09:03] VITALS: BP 119/75; PULSE 85; RESP 17; TEMP 98.1
[2022-09-26] MEDS: ATORVASTATIN CALCIUM 10 MG TABLET PO SCH (10:35)
[2022-09-26] MEDS: CloNIDine 0.1 MG/24 HOUR PATCH TD SCH (10:36)
[2022-09-26] MEDS: AmLODIPine BESYLATE 5 MG TABLET PO SCH (10:38)
[2022-09-26] MEDS: RisperiDONE 3 MG TABLET PO SCH ×2 (10:38→20:37)
[2022-09-26] MEDS: LORazepam 2 MG TABLET PO PRN ×2 (13:33→19:33)
[2022-09-26] MEDS: HALOPERIDOL 5 MG TABLET PO PRN (13:33)
[2022-09-26 17:26] LABS: GLUCOMETER DEV NAME(LOC) 3EX.2; GLUCOSE,POINT OF CARE 120 MG/DL (70-110)
[2022-09-26 20:11] VITALS: BP 118/78; PULSE 76; RESP 18; TEMP 97.4
[2022-09-26] MEDS: ZOLPIDEM TARTRATE 10 MG TABLET PO PRN (21:16)
[2022-09-27] MEDS: MetFORMIN HCL 500 MG TABLET PO SCH ×2 (06:34→17:36)
[2022-09-27 06:41] LABS: GLUCOMETER DEV NAME(LOC) 3EX.2; GLUCOSE,POINT OF CARE 87 MG/DL (70-110)
[2022-09-27] MEDS: DIVALPROEX SODIUM 500 MG DR TABLET PO SCH ×2 (09:00→20:44)
[2022-09-27 09:07] VITALS: BP 120/70; PULSE 74; RESP 18; TEMP 97.6
[2022-09-27] MEDS: ATORVASTATIN CALCIUM 10 MG TABLET PO SCH (10:38)
[2022-09-27] MEDS: AmLODIPine BESYLATE 5 MG TABLET PO SCH (10:38)
[2022-09-27] MEDS: RisperiDONE 3 MG TABLET PO SCH ×2 (10:38→20:44)
[2022-09-27 17:26] LABS: GLUCOMETER DEV NAME(LOC) 3EX.2; GLUCOSE,POINT OF CARE 137 MG/DL (70-110)
[2022-09-27 20:18] VITALS: BP 132/69; PULSE 78; RESP 18; TEMP 97.9
[2022-09-27] MEDS: ZOLPIDEM TARTRATE 10 MG TABLET PO PRN (21:33)
[2022-09-28 06:41] LABS: GLUCOMETER DEV NAME(LOC) 3EX.2; GLUCOSE,POINT OF CARE 115 MG/DL (70-110)
[2022-09-28] MEDS: MetFORMIN HCL 500 MG TABLET PO SCH ×2 (06:53→17:33)
[2022-09-28 08:03] VITALS: BP 129/81; PULSE 69; RESP 18; TEMP 97.6
[2022-09-28] MEDS: DIVALPROEX SODIUM 500 MG DR TABLET PO SCH ×2 (09:00→21:00)
[2022-09-28] MEDS: AmLODIPine BESYLATE 5 MG TABLET PO SCH (10:04)
[2022-09-28] MEDS: ATORVASTATIN CALCIUM 10 MG TABLET PO SCH (10:04)
[2022-09-28] MEDS: RisperiDONE 3 MG TABLET PO SCH ×2 (10:04→21:00)
[2022-09-28 17:26] LABS: GLUCOMETER DEV NAME(LOC) 3EX.2; GLUCOSE,POINT OF CARE 146 MG/DL (70-110)
[2022-09-28 20:49] VITALS: BP 131/77; PULSE 72; RESP 18; TEMP 97.3
[2022-09-28] MEDS: ZOLPIDEM TARTRATE 10 MG TABLET PO PRN (21:00)
[2022-09-29 06:41] LABS: GLUCOMETER DEV NAME(LOC) 3EX.2; GLUCOSE,POINT OF CARE 106 MG/DL (70-110)
[2022-09-29] MEDS: MetFORMIN HCL 500 MG TABLET PO SCH ×2 (06:47→16:58)
[2022-09-29] MEDS: ATORVASTATIN CALCIUM 10 MG TABLET PO SCH (08:01)
[2022-09-29] MEDS: AmLODIPine BESYLATE 5 MG TABLET PO SCH (08:01)
[2022-09-29] MEDS: RisperiDONE 3 MG TABLET PO SCH ×2 (08:01→20:33)
[2022-09-29] MEDS: DIVALPROEX SODIUM 500 MG DR TABLET PO SCH ×2 (08:05→20:33)
[2022-09-29 08:06] VITALS: BP 125/78; PULSE 79; RESP 20
[2022-09-29] MEDS: ACETAMINOPHEN 325 MG TABLET PO PRN (08:06)
[2022-09-29 09:30] VITALS: BP 126/66; PULSE 90; RESP 18; TEMP 97.5
[2022-09-29 16:41] LABS: GLUCOMETER DEV NAME(LOC) 3EX.2; GLUCOSE,POINT OF CARE 147 MG/DL (70-110)
[2022-09-29] MEDS: MAGNESIUM HYDROXIDE SUSPENSION 30 ML UDCUP PO PRN (17:14)
[2022-09-29] MEDS: LORazepam 2 MG TABLET PO PRN (20:15)
[2022-09-29] MEDS: HALOPERIDOL 5 MG TABLET PO PRN (20:15)
[2022-09-29 20:55] VITALS: BP 128/75; PULSE 110; RESP 18; TEMP 97.1
[2022-09-29] MEDS: ZOLPIDEM TARTRATE 10 MG TABLET PO PRN (21:33)
[2022-09-30 05:49] VITALS: BP 115/66; PULSE 74; RESP 18; TEMP 97.7
[2022-09-30] MEDS: ACETAMINOPHEN 325 MG TABLET PO PRN (05:55)
[2022-09-30 06:07] LABS: GLUCOMETER DEV NAME(LOC) 3EX.2; GLUCOSE,POINT OF CARE 130 MG/DL (70-110)
[2022-09-30] MEDS: MetFORMIN HCL 500 MG TABLET PO SCH ×2 (06:37→17:58)
[2022-09-30 06:55] VITALS: TEMP 97.5
[2022-09-30 08:58] VITALS: BP 140/69; PULSE 80; RESP 17; TEMP 98
[2022-09-30] MEDS: DIVALPROEX SODIUM 500 MG DR TABLET PO SCH ×2 (09:00→21:00)
[2022-09-30] MEDS: ATORVASTATIN CALCIUM 10 MG TABLET PO SCH (09:29)
[2022-09-30] MEDS: AmLODIPine BESYLATE 5 MG TABLET PO SCH (09:29)
[2022-09-30] MEDS: RisperiDONE 3 MG TABLET PO SCH ×2 (09:29→20:39)
[2022-09-30 16:41] LABS: GLUCOMETER DEV NAME(LOC) 3EX.2; GLUCOSE,POINT OF CARE 156 MG/DL (70-110)
[2022-09-30] MEDS: LORazepam 2 MG TABLET PO PRN (19:24)
[2022-09-30] MEDS: HALOPERIDOL 5 MG TABLET PO PRN (19:24)
[2022-09-30 20:05] VITALS: BP 134/76; PULSE 86; RESP 18; TEMP 97.8
[2022-09-30] MEDS: ZOLPIDEM TARTRATE 10 MG TABLET PO PRN (21:51)
[2022-10-01 05:35] VITALS: BP 133/77; PULSE 82; RESP 18; TEMP 97.7
[2022-10-01] MEDS: ACETAMINOPHEN 325 MG TABLET PO PRN (05:43)
[2022-10-01 06:31] LABS: GLUCOMETER DEV NAME(LOC) 3EX.2; GLUCOSE,POINT OF CARE 109 MG/DL (70-110)
[2022-10-01 06:40] VITALS: TEMP 97.8
[2022-10-01] MEDS: MetFORMIN HCL 500 MG TABLET PO SCH ×2 (06:46→17:49)
[2022-10-01 08:03] VITALS: BP 139/62; PULSE 82; RESP 18; TEMP 96.9
[2022-10-01] MEDS: DIVALPROEX SODIUM 500 MG DR TABLET PO SCH ×2 (09:00→20:35)
[2022-10-01] MEDS: AmLODIPine BESYLATE 5 MG TABLET PO SCH (09:18)
[2022-10-01] MEDS: RisperiDONE 3 MG TABLET PO SCH ×2 (09:18→20:35)
[2022-10-01] MEDS: ATORVASTATIN CALCIUM 10 MG TABLET PO SCH (09:19)
[2022-10-01 17:41] LABS: GLUCOMETER DEV NAME(LOC) 3EX.2; GLUCOSE,POINT OF CARE 241 MG/DL (70-110)
[2022-10-01] MEDS: LORazepam 2 MG TABLET PO PRN (19:21)
[2022-10-01 21:09] VITALS: RESP 17
[2022-10-02 05:36] LABS: GLUCOMETER DEV NAME(LOC) 3EX.2; GLUCOSE,POINT OF CARE 179 MG/DL (70-110)
[2022-10-02] MEDS: MetFORMIN HCL 500 MG TABLET PO SCH ×2 (06:38→17:32)
[2022-10-02 08:00] VITALS: RESP 18
[2022-10-02] MEDS: AmLODIPine BESYLATE 5 MG TABLET PO SCH (08:59)
[2022-10-02] MEDS: ATORVASTATIN CALCIUM 10 MG TABLET PO SCH (08:59)
[2022-10-02] MEDS: RisperiDONE 3 MG TABLET PO SCH ×2 (08:59→20:25)
[2022-10-02] MEDS: DIVALPROEX SODIUM 500 MG DR TABLET PO SCH ×2 (09:00→21:00)
[2022-10-02] MEDS: ACETAMINOPHEN 325 MG TABLET PO PRN (15:53)
[2022-10-02 16:20] LABS: GLUCOMETER DEV NAME(LOC) 3EX.2; GLUCOSE,POINT OF CARE 151 MG/DL (70-110)
[2022-10-02] MEDS: ZOLPIDEM TARTRATE 10 MG TABLET PO PRN (20:25)
[2022-10-02 20:48] VITALS: BP 132/82; PULSE 82; RESP 18; TEMP 97.1
[2022-10-03] MEDS: MetFORMIN HCL 500 MG TABLET PO SCH ×2 (06:32→17:30)
[2022-10-03 06:46] LABS: GLUCOMETER DEV NAME(LOC) 3EX.2; GLUCOSE,POINT OF CARE 112 MG/DL (70-110)
[2022-10-03 08:02] VITALS: BP 140/64; PULSE 100; RESP 18; TEMP 97.6
[2022-10-03] MEDS: ATORVASTATIN CALCIUM 10 MG TABLET PO SCH (08:59)
[2022-10-03] MEDS: AmLODIPine BESYLATE 5 MG TABLET PO SCH (08:59)
[2022-10-03] MEDS: DIVALPROEX SODIUM 500 MG DR TABLET PO SCH ×2 (09:00→20:52)
[2022-10-03] MEDS: RisperiDONE 3 MG TABLET PO SCH ×2 (09:00→20:52)
[2022-10-03] MEDS: CloNIDine 0.1 MG/24 HOUR PATCH TD SCH (09:00)
[2022-10-03 16:56] LABS: GLUCOMETER DEV NAME(LOC) 3EX.2; GLUCOSE,POINT OF CARE 172 MG/DL (70-110)
[2022-10-03] MEDS: LORazepam 2 MG TABLET PO PRN (19:37)
[2022-10-03 21:18] VITALS: RESP 18
[2022-10-04] MEDS: MetFORMIN HCL 500 MG TABLET PO SCH ×2 (06:33→16:45)
[2022-10-04 06:41] LABS: GLUCOMETER DEV NAME(LOC) 3EX.2; GLUCOSE,POINT OF CARE 126 MG/DL (70-110)
[2022-10-04 08:34] VITALS: BP 124/69; PULSE 96; RESP 17; TEMP 98
[2022-10-04] MEDS: DIVALPROEX SODIUM 500 MG DR TABLET PO SCH ×3 (09:00→21:00)
[2022-10-04] MEDS: ATORVASTATIN CALCIUM 10 MG TABLET PO SCH ×2 (09:00→09:47)
[2022-10-04] MEDS: RisperiDONE 3 MG TABLET PO SCH ×3 (09:00→21:00)
[2022-10-04] MEDS: AmLODIPine BESYLATE 5 MG TABLET PO SCH ×2 (09:00→09:54)
[2022-10-04] MEDS ORDERED: HALOPERIDOL LACTATE 5 MG/ML VIAL ONE (12:46)
[2022-10-04] MEDS: HALOPERIDOL LACTATE 5 MG/ML VIAL IM PRN ×2 (12:55→22:00)
[2022-10-04] MEDS: LORazepam 2 MG TABLET PO PRN (19:59)
[2022-10-04] MEDS: HALOPERIDOL 5 MG TABLET PO PRN (19:59)
[2022-10-04 20:14] VITALS: BP 122/70; PULSE 81; RESP 17; TEMP 97.9
[2022-10-04] MEDS: ZOLPIDEM TARTRATE 10 MG TABLET PO PRN (22:45)
[2022-10-05 05:46] LABS: GLUCOMETER DEV NAME(LOC) 3EX.2; GLUCOSE,POINT OF CARE 120 MG/DL (70-110)
[2022-10-05] MEDS: MetFORMIN HCL 500 MG TABLET PO SCH ×3 (06:34→17:04)
[2022-10-05 08:02] VITALS: BP 135/74; PULSE 77; RESP 18; TEMP 98
[2022-10-05] MEDS: DIVALPROEX SODIUM 500 MG DR TABLET PO SCH ×2 (09:00→21:00)
[2022-10-05] MEDS: AmLODIPine BESYLATE 5 MG TABLET PO SCH (09:00)
[2022-10-05] MEDS: RisperiDONE 3 MG TABLET PO SCH ×2 (09:00→21:00)
[2022-10-05] MEDS: ATORVASTATIN CALCIUM 10 MG TABLET PO SCH (09:00)
[2022-10-05] MEDS: HALOPERIDOL LACTATE 5 MG/ML VIAL IM PRN ×2 (10:28→21:53)
[2022-10-05 17:11] LABS: GLUCOMETER DEV NAME(LOC) 3EX.2; GLUCOSE,POINT OF CARE 173 MG/DL (70-110)
[2022-10-05 20:55] VITALS: BP 118/78; PULSE 81; RESP 17; TEMP 97.4
[2022-10-05] MEDS: ZOLPIDEM TARTRATE 10 MG TABLET PO PRN (21:45)
[2022-10-06 05:56] LABS: GLUCOMETER DEV NAME(LOC) 3EX.2; GLUCOSE,POINT OF CARE 128 MG/DL (70-110)
[2022-10-06] MEDS: MetFORMIN HCL 500 MG TABLET PO SCH ×2 (06:35→16:28)
[2022-10-06 08:15] VITALS: BP 135/75; PULSE 68; RESP 18; TEMP 97.2
[2022-10-06] MEDS: ATORVASTATIN CALCIUM 10 MG TABLET PO SCH (09:00)
[2022-10-06] MEDS: AmLODIPine BESYLATE 5 MG TABLET PO SCH (09:00)
[2022-10-06] MEDS: RisperiDONE 3 MG TABLET PO SCH ×2 (09:00→21:00)
[2022-10-06] MEDS: DIVALPROEX SODIUM 500 MG DR TABLET PO SCH ×2 (09:00→21:00)
[2022-10-06] MEDS: HALOPERIDOL LACTATE 5 MG/ML VIAL IM PRN ×2 (10:03→21:12)
[2022-10-06] MEDS: MAGNESIUM HYDROXIDE SUSPENSION 30 ML UDCUP PO PRN (15:16)
[2022-10-06] MEDS: ACETAMINOPHEN 325 MG TABLET PO PRN (16:28)
[2022-10-06 16:36] VITALS: RESP 18
[2022-10-06 16:56] LABS: GLUCOMETER DEV NAME(LOC) 3EX.2; GLUCOSE,POINT OF CARE 215 MG/DL (70-110)
[2022-10-06 21:51] VITALS: BP 129/72; PULSE 79; RESP 18; TEMP 97.3
[2022-10-07 06:16] LABS: GLUCOMETER DEV NAME(LOC) 3EX.2; GLUCOSE,POINT OF CARE 158 MG/DL (70-110)
[2022-10-07] MEDS: MetFORMIN HCL 500 MG TABLET PO SCH ×2 (06:48→17:18)
[2022-10-07] MEDS: RisperiDONE 3 MG TABLET PO SCH ×2 (08:27→20:37)
[2022-10-07] MEDS: ATORVASTATIN CALCIUM 10 MG TABLET PO SCH (08:27)
[2022-10-07] MEDS: AmLODIPine BESYLATE 5 MG TABLET PO SCH (08:33)
[2022-10-07] MEDS: DIVALPROEX SODIUM 500 MG DR TABLET PO SCH ×2 (08:33→20:36)
[2022-10-07 08:46] VITALS: BP 115/70; PULSE 95; RESP 17; TEMP 98.1
[2022-10-07 16:56] LABS: GLUCOMETER DEV NAME(LOC) 3EX.2; GLUCOSE,POINT OF CARE 138 MG/DL (70-110)
[2022-10-07 20:00] VITALS: RESP 18
[2022-10-08] MEDS: MetFORMIN HCL 500 MG TABLET PO SCH ×2 (06:35→16:51)
[2022-10-08 06:36] LABS: GLUCOMETER DEV NAME(LOC) 3EX.2; GLUCOSE,POINT OF CARE 135 MG/DL (70-110)
[2022-10-08 08:57] VITALS: BP 135/74; PULSE 69; RESP 18; TEMP 98
[2022-10-08] MEDS: DIVALPROEX SODIUM 500 MG DR TABLET PO SCH ×2 (08:57→20:35)
[2022-10-08] MEDS: ATORVASTATIN CALCIUM 10 MG TABLET PO SCH (08:57)
[2022-10-08] MEDS: RisperiDONE 3 MG TABLET PO SCH ×2 (08:58→20:34)
[2022-10-08] MEDS: AmLODIPine BESYLATE 5 MG TABLET PO SCH (08:58)
[2022-10-08 11:32] VITALS: BP 130/72; PULSE 78; RESP 19; TEMP 97.3
[2022-10-08] MEDS: ACETAMINOPHEN 325 MG TABLET PO PRN (11:32)
[2022-10-08 17:26] LABS: GLUCOMETER DEV NAME(LOC) 3EX.2; GLUCOSE,POINT OF CARE 153 MG/DL (70-110)
[2022-10-08 20:35] VITALS: BP 125/70; PULSE 70; RESP 18; TEMP 97.9
[2022-10-09] MEDS: MetFORMIN HCL 500 MG TABLET PO SCH ×2 (06:55→17:30)
[2022-10-09 07:31] LABS: GLUCOMETER DEV NAME(LOC) 3EX.2; GLUCOSE,POINT OF CARE 134 MG/DL (70-110)
[2022-10-09] MEDS: DIVALPROEX SODIUM 500 MG DR TABLET PO SCH ×2 (09:02→20:48)
[2022-10-09] MEDS: AmLODIPine BESYLATE 5 MG TABLET PO SCH (09:02)
[2022-10-09] MEDS: ATORVASTATIN CALCIUM 10 MG TABLET PO SCH (09:02)
[2022-10-09 09:05] VITALS: BP 131/79; PULSE 84; RESP 19; TEMP 97.3
[2022-10-09] MEDS: ACETAMINOPHEN 325 MG TABLET PO PRN (09:05)
[2022-10-09 09:54] VITALS: BP 131/79; PULSE 104; RESP 18; TEMP 97.5
[2022-10-09 10:05] VITALS: BP 134/7; PULSE 86; RESP 18; TEMP 97.7
[2022-10-09 17:41] LABS: GLUCOMETER DEV NAME(LOC) 3EX.2; GLUCOSE,POINT OF CARE 125 MG/DL (70-110)
[2022-10-09] MEDS: ZOLPIDEM TARTRATE 10 MG TABLET PO PRN (20:48)
[2022-10-09 20:54] VITALS: BP 132/74; PULSE 79; RESP 18; TEMP 97.9
[2022-10-10] MEDS: MetFORMIN HCL 500 MG TABLET PO SCH ×2 (06:32→16:50)
[2022-10-10 07:11] LABS: GLUCOMETER DEV NAME(LOC) 3EX.2; GLUCOSE,POINT OF CARE 122 MG/DL (70-110)
[2022-10-10] MEDS: DIVALPROEX SODIUM 500 MG DR TABLET PO SCH ×2 (08:52→21:16)
[2022-10-10] MEDS: ATORVASTATIN CALCIUM 10 MG TABLET PO SCH (08:52)
[2022-10-10] MEDS: AmLODIPine BESYLATE 5 MG TABLET PO SCH (08:52)
[2022-10-10] MEDS: CloNIDine 0.1 MG/24 HOUR PATCH TD SCH (08:54)
[2022-10-10 10:06] VITALS: BP 160/83; PULSE 106; RESP 18; TEMP 98
[2022-10-10 17:16] LABS: GLUCOMETER DEV NAME(LOC) 3EX.2; GLUCOSE,POINT OF CARE 155 MG/DL (70-110)
[2022-10-10 20:11] VITALS: BP 145/80; PULSE 98; RESP 18; TEMP 97.9
[2022-10-10] MEDS: ZOLPIDEM TARTRATE 10 MG TABLET PO PRN (21:16)
[2022-10-11 06:46] LABS: GLUCOMETER DEV NAME(LOC) 3EX.2; GLUCOSE,POINT OF CARE 129 MG/DL (70-110)
[2022-10-11] MEDS: MetFORMIN HCL 500 MG TABLET PO SCH ×2 (07:00→17:28)
[2022-10-11] MEDS: ATORVASTATIN CALCIUM 10 MG TABLET PO SCH (09:09)
[2022-10-11] MEDS: AmLODIPine BESYLATE 5 MG TABLET PO SCH (09:10)
[2022-10-11] MEDS: DIVALPROEX SODIUM 500 MG DR TABLET PO SCH ×2 (09:10→21:08)
[2022-10-11 09:58] VITALS: BP 151/75; PULSE 81; RESP 18; TEMP 97.2
[2022-10-11 17:26] LABS: GLUCOMETER DEV NAME(LOC) 3EX.2; GLUCOSE,POINT OF CARE 144 MG/DL (70-110)
[2022-10-11 20:00] VITALS: BP 134/67; PULSE 69; RESP 18; TEMP 97.6
[2022-10-11] MEDS: ZOLPIDEM TARTRATE 10 MG TABLET PO PRN (21:08)
[2022-10-12 06:26] LABS: GLUCOMETER DEV NAME(LOC) 3EX.2; GLUCOSE,POINT OF CARE 123 MG/DL (70-110)
[2022-10-12] MEDS: MetFORMIN HCL 500 MG TABLET PO SCH ×2 (06:52→16:32)
[2022-10-12 08:05] VITALS: BP 149/79; PULSE 72; RESP 18; TEMP 97.9
[2022-10-12] MEDS: DIVALPROEX SODIUM 500 MG DR TABLET PO SCH ×2 (08:25→20:50)
[2022-10-12] MEDS: AmLODIPine BESYLATE 5 MG TABLET PO SCH (08:26)
[2022-10-12] MEDS: ATORVASTATIN CALCIUM 10 MG TABLET PO SCH (08:26)
[2022-10-12 17:41] LABS: GLUCOMETER DEV NAME(LOC) 3EX.2; GLUCOSE,POINT OF CARE 113 MG/DL (70-110)
[2022-10-12 20:10] VITALS: BP 137/71; PULSE 70; RESP 18; TEMP 98.1
[2022-10-13 06:32] LABS: GLUCOMETER DEV NAME(LOC) 3EX.2; GLUCOSE,POINT OF CARE 135 MG/DL (70-110)
[2022-10-13] MEDS: MetFORMIN HCL 500 MG TABLET PO SCH ×2 (06:49→17:41)
[2022-10-13 08:19] VITALS: BP 137/72; PULSE 66; RESP 18; TEMP 97.6
[2022-10-13] MEDS: AmLODIPine BESYLATE 5 MG TABLET PO SCH (08:39)
[2022-10-13] MEDS: ATORVASTATIN CALCIUM 10 MG TABLET PO SCH (08:39)
[2022-10-13] MEDS: DIVALPROEX SODIUM 500 MG DR TABLET PO SCH ×2 (08:39→20:56)
[2022-10-13 16:46] LABS: GLUCOMETER DEV NAME(LOC) 3EX.2; GLUCOSE,POINT OF CARE 143 MG/DL (70-110)
[2022-10-13 20:03] VITALS: BP 159/79; PULSE 91; RESP 18; TEMP 98.3
[2022-10-13] MEDS: ZOLPIDEM TARTRATE 10 MG TABLET PO PRN (20:56)
[2022-10-14 06:26] LABS: GLUCOMETER DEV NAME(LOC) 3EX.2; GLUCOSE,POINT OF CARE 123 MG/DL (70-110)
[2022-10-14] MEDS: MetFORMIN HCL 500 MG TABLET PO SCH ×2 (06:56→16:20)
[2022-10-14] MEDS: AmLODIPine BESYLATE 5 MG TABLET PO SCH (08:23)
[2022-10-14] MEDS: ATORVASTATIN CALCIUM 10 MG TABLET PO SCH (08:23)
[2022-10-14] MEDS: DIVALPROEX SODIUM 500 MG DR TABLET PO SCH ×2 (08:23→20:46)
[2022-10-14 08:30] VITALS: BP 141/70; PULSE 90; RESP 17; TEMP 97.6
[2022-10-14 17:21] LABS: GLUCOMETER DEV NAME(LOC) 3EX.2; GLUCOSE,POINT OF CARE 146 MG/DL (70-110)
[2022-10-14 21:53] VITALS: RESP 18
[2022-10-15 06:36] LABS: GLUCOMETER DEV NAME(LOC) 3EX.2; GLUCOSE,POINT OF CARE 105 MG/DL (70-110)
[2022-10-15] MEDS: MetFORMIN HCL 500 MG TABLET PO SCH ×2 (06:54→16:38)
[2022-10-15 08:04] VITALS: BP 119/65; PULSE 65; RESP 18; TEMP 97.6
[2022-10-15] MEDS: ATORVASTATIN CALCIUM 10 MG TABLET PO SCH (08:11)
[2022-10-15] MEDS: AmLODIPine BESYLATE 5 MG TABLET PO SCH (08:11)
[2022-10-15] MEDS: DIVALPROEX SODIUM 500 MG DR TABLET PO SCH ×2 (08:11→20:22)
[2022-10-15] MEDS: PALIPERIDONE PALMITATE 234 MG/1.5 ML SYRINGE IM SCH (09:19)
[2022-10-15 17:21] LABS: GLUCOMETER DEV NAME(LOC) 3EX.2; GLUCOSE,POINT OF CARE 117 MG/DL (70-110)
[2022-10-15 21:31] VITALS: RESP 19
[2022-10-16] MEDS: MetFORMIN HCL 500 MG TABLET PO SCH ×2 (06:34→16:56)
[2022-10-16 06:36] LABS: GLUCOMETER DEV NAME(LOC) 3EX.2; GLUCOSE,POINT OF CARE 99 MG/DL (70-110)
[2022-10-16 08:24] VITALS: BP 128/79; PULSE 82; RESP 18; TEMP 98.1
[2022-10-16] MEDS: AmLODIPine BESYLATE 5 MG TABLET PO SCH (09:39)
[2022-10-16] MEDS: DIVALPROEX SODIUM 500 MG DR TABLET PO SCH ×2 (09:39→20:50)
[2022-10-16] MEDS: ATORVASTATIN CALCIUM 10 MG TABLET PO SCH (09:39)
[2022-10-16 17:21] LABS: GLUCOMETER DEV NAME(LOC) 3EX.2; GLUCOSE,POINT OF CARE 136 MG/DL (70-110)
[2022-10-16 20:27] VITALS: RESP 18
[2022-10-17 06:21] LABS: GLUCOMETER DEV NAME(LOC) 3EX.2; GLUCOSE,POINT OF CARE 97 MG/DL (70-110)
[2022-10-17] MEDS: MetFORMIN HCL 500 MG TABLET PO SCH ×2 (07:03→16:46)
[2022-10-17 08:15] VITALS: BP 140/65; PULSE 70; RESP 18; TEMP 97.6
[2022-10-17] MEDS: CloNIDine 0.1 MG/24 HOUR PATCH TD SCH (08:15)
[2022-10-17] MEDS: DIVALPROEX SODIUM 500 MG DR TABLET PO SCH ×2 (08:15→20:54)
[2022-10-17] MEDS: ATORVASTATIN CALCIUM 10 MG TABLET PO SCH (08:15)
[2022-10-17] MEDS: AmLODIPine BESYLATE 5 MG TABLET PO SCH (08:15)
[2022-10-17 16:56] LABS: GLUCOMETER DEV NAME(LOC) 3EX.2; GLUCOSE,POINT OF CARE 117 MG/DL (70-110)
[2022-10-17 22:04] VITALS: BP 132/82; PULSE 76; RESP 18; TEMP 97.2
[2022-10-18 06:07] LABS: GLUCOMETER DEV NAME(LOC) 3EX.2; GLUCOSE,POINT OF CARE 95 MG/DL (70-110)
[2022-10-18] MEDS: MetFORMIN HCL 500 MG TABLET PO SCH ×2 (06:58→16:50)
[2022-10-18 08:36] VITALS: BP 142/70; PULSE 60; RESP 18; TEMP 97.6
[2022-10-18] MEDS: DIVALPROEX SODIUM 500 MG DR TABLET PO SCH ×2 (08:58→20:53)
[2022-10-18] MEDS: ATORVASTATIN CALCIUM 10 MG TABLET PO SCH (08:59)
[2022-10-18] MEDS: AmLODIPine BESYLATE 5 MG TABLET PO SCH (08:59)
[2022-10-18 17:36] LABS: GLUCOMETER DEV NAME(LOC) 3EX.2; GLUCOSE,POINT OF CARE 148 MG/DL (70-110)
[2022-10-18 20:06] VITALS: BP 133/76; PULSE 73; RESP 18; TEMP 97.5
[2022-10-19 06:41] LABS: GLUCOMETER DEV NAME(LOC) 3EX.2; GLUCOSE,POINT OF CARE 103 MG/DL (70-110)
[2022-10-19] MEDS: MetFORMIN HCL 500 MG TABLET PO SCH ×2 (06:46→17:57)
[2022-10-19] MEDS: AmLODIPine BESYLATE 5 MG TABLET PO SCH ×2 (08:55→09:00)
[2022-10-19] MEDS: DIVALPROEX SODIUM 500 MG DR TABLET PO SCH ×2 (08:55→20:57)
[2022-10-19] MEDS: ATORVASTATIN CALCIUM 10 MG TABLET PO SCH (08:56)
[2022-10-19 11:28] VITALS: BP 104/57; PULSE 59; TEMP 97.1
[2022-10-19 16:36] LABS: GLUCOMETER DEV NAME(LOC) 3EX.2; GLUCOSE,POINT OF CARE 112 MG/DL (70-110)
[2022-10-19 20:10] VITALS: BP 131/82; PULSE 78; RESP 18; TEMP 98.1
[2022-10-20 06:27] LABS: GLUCOMETER DEV NAME(LOC) 3EX.2; GLUCOSE,POINT OF CARE 103 MG/DL (70-110)
[2022-10-20] MEDS: MetFORMIN HCL 500 MG TABLET PO SCH ×2 (06:37→17:49)
[2022-10-20 08:35] VITALS: BP 117/60; PULSE 58; RESP 18; TEMP 97.6
[2022-10-20] MEDS: DIVALPROEX SODIUM 500 MG DR TABLET PO SCH ×2 (08:43→20:30)
[2022-10-20] MEDS: ATORVASTATIN CALCIUM 10 MG TABLET PO SCH (08:44)
[2022-10-20] MEDS: AmLODIPine BESYLATE 5 MG TABLET PO SCH (08:45)
[2022-10-20 17:01] LABS: GLUCOMETER DEV NAME(LOC) 3EX.2; GLUCOSE,POINT OF CARE 120 MG/DL (70-110)
[2022-10-20 21:54] VITALS: RESP 18
[2022-10-21] MEDS: ZOLPIDEM TARTRATE 10 MG TABLET PO PRN (01:54)
[2022-10-21] MEDS: MetFORMIN HCL 500 MG TABLET PO SCH ×2 (06:45→16:53)
[2022-10-21 07:01] LABS: GLUCOMETER DEV NAME(LOC) 3EX.2; GLUCOSE,POINT OF CARE 113 MG/DL (70-110)
[2022-10-21 08:29] VITALS: BP 122/68; PULSE 67; RESP 18; TEMP 97.6
[2022-10-21] MEDS: DIVALPROEX SODIUM 500 MG DR TABLET PO SCH ×2 (08:41→20:42)
[2022-10-21] MEDS: ATORVASTATIN CALCIUM 10 MG TABLET PO SCH (08:41)
[2022-10-21] MEDS: AmLODIPine BESYLATE 5 MG TABLET PO SCH (08:41)
[2022-10-21 16:35] LABS: GLUCOMETER DEV NAME(LOC) 3EX.2; GLUCOSE,POINT OF CARE 126 MG/DL (70-110)
[2022-10-21 20:43] VITALS: RESP 18
[2022-10-22 06:31] LABS: GLUCOMETER DEV NAME(LOC) 3EX.2; GLUCOSE,POINT OF CARE 96 MG/DL (70-110)
[2022-10-22] MEDS: MetFORMIN HCL 500 MG TABLET PO SCH ×2 (06:53→18:18)
[2022-10-22 08:33] VITALS: BP 130/69; PULSE 63; RESP 18; TEMP 97.8
[2022-10-22] MEDS: DIVALPROEX SODIUM 500 MG DR TABLET PO SCH ×2 (09:26→20:40)
[2022-10-22] MEDS: AmLODIPine BESYLATE 5 MG TABLET PO SCH (09:27)
[2022-10-22] MEDS: ATORVASTATIN CALCIUM 10 MG TABLET PO SCH (09:27)
[2022-10-22 16:42] LABS: GLUCOMETER DEV NAME(LOC) 3EX.2; GLUCOSE,POINT OF CARE 109 MG/DL (70-110)
[2022-10-22 22:35] VITALS: BP 128/82; PULSE 72; RESP 18; TEMP 97.1
[2022-10-23 00:28] VITALS: RESP 18; TEMP 97.5
[2022-10-23 04:01] VITALS: RESP 18
[2022-10-23] MEDS: MetFORMIN HCL 500 MG TABLET PO SCH ×2 (06:34→16:37)
[2022-10-23 06:46] LABS: GLUCOMETER DEV NAME(LOC) 3EX.2; GLUCOSE,POINT OF CARE 93 MG/DL (70-110)
[2022-10-23 08:32] VITALS: BP 130/80; PULSE 86; RESP 17; TEMP 97.6
[2022-10-23] MEDS: ATORVASTATIN CALCIUM 10 MG TABLET PO SCH (09:15)
[2022-10-23] MEDS: AmLODIPine BESYLATE 5 MG TABLET PO SCH (09:16)
[2022-10-23] MEDS: DIVALPROEX SODIUM 500 MG DR TABLET PO SCH ×2 (09:16→20:36)
[2022-10-23 11:27] LABS: COVID AG,FIA SOURCE NASAL SWAB
[2022-10-23 12:01] VITALS: TEMP 98
[2022-10-23 12:40] LABS: SARS-COV2 (COVID) ANTIGEN,FIA Negative (Negative)
[2022-10-23 16:09] VITALS: TEMP 97.6
[2022-10-23 17:31] LABS: GLUCOMETER DEV NAME(LOC) 3EX.2; GLUCOSE,POINT OF CARE 115 MG/DL (70-110)
[2022-10-23 20:13] VITALS: BP 132/84; PULSE 79; RESP 18; TEMP 98
[2022-10-23] MEDS: ZOLPIDEM TARTRATE 10 MG TABLET PO PRN (20:36)
[2022-10-24 01:23] VITALS: RESP 18
[2022-10-24 05:44] VITALS: RESP 18
[2022-10-24 06:12] LABS: GLUCOMETER DEV NAME(LOC) 3EX.2; GLUCOSE,POINT OF CARE 109 MG/DL (70-110)
[2022-10-24] MEDS: MetFORMIN HCL 500 MG TABLET PO SCH ×2 (06:34→18:01)
[2022-10-24 08:34] VITALS: BP 106/54; PULSE 82; RESP 18; TEMP 98.7
[2022-10-24] MEDS: ATORVASTATIN CALCIUM 10 MG TABLET PO SCH (08:47)
[2022-10-24] MEDS: DIVALPROEX SODIUM 500 MG DR TABLET PO SCH ×2 (08:47→21:27)
[2022-10-24] MEDS: CloNIDine 0.1 MG/24 HOUR PATCH TD SCH (08:47)
[2022-10-24] MEDS: AmLODIPine BESYLATE 5 MG TABLET PO SCH (08:47)
[2022-10-24 14:12] VITALS: RESP 18; TEMP 98.5
[2022-10-24 16:46] VITALS: RESP 18; TEMP 97.3
[2022-10-24 17:26] LABS: GLUCOMETER DEV NAME(LOC) 3EX.2; GLUCOSE,POINT OF CARE 102 MG/DL (70-110)
[2022-10-24 20:05] VITALS: BP 124/84; PULSE 84; RESP 18; TEMP 97.6
[2022-10-24] MEDS: ZOLPIDEM TARTRATE 10 MG TABLET PO PRN (21:27)
[2022-10-25 00:12] VITALS: RESP 18
[2022-10-25 04:09] VITALS: RESP 18
[2022-10-25 06:41] LABS: GLUCOMETER DEV NAME(LOC) 3EX.2; GLUCOSE,POINT OF CARE 103 MG/DL (70-110)
[2022-10-25] MEDS: MetFORMIN HCL 500 MG TABLET PO SCH ×2 (06:55→16:24)
[2022-10-25 08:06] VITALS: BP 91/52; PULSE 80; RESP 18; TEMP 97.6
[2022-10-25] MEDS: DIVALPROEX SODIUM 500 MG DR TABLET PO SCH ×2 (08:25→22:46)
[2022-10-25] MEDS: AmLODIPine BESYLATE 5 MG TABLET PO SCH (08:25)
[2022-10-25] MEDS: ATORVASTATIN CALCIUM 10 MG TABLET PO SCH (08:25)
[2022-10-25 12:37] VITALS: TEMP 97.9
[2022-10-25 16:13] VITALS: RESP 17; TEMP 98
[2022-10-25 17:06] LABS: GLUCOMETER DEV NAME(LOC) 3EX.2; GLUCOSE,POINT OF CARE 146 MG/DL (70-110)
[2022-10-25 20:12] VITALS: BP 117/74; PULSE 76; RESP 18; TEMP 98.2
[2022-10-25] MEDS: ZOLPIDEM TARTRATE 10 MG TABLET PO PRN (22:46)
[2022-10-26 00:22] VITALS: RESP 18
[2022-10-26] MEDS: MetFORMIN HCL 500 MG TABLET PO SCH ×2 (06:37→17:23)
[2022-10-26 06:41] LABS: GLUCOMETER DEV NAME(LOC) 3EX.2; GLUCOSE,POINT OF CARE 106 MG/DL (70-110)
[2022-10-26 08:45] VITALS: BP 120/71; PULSE 74; RESP 17; TEMP 97.3
[2022-10-26] MEDS: DIVALPROEX SODIUM 500 MG DR TABLET PO SCH ×2 (08:49→20:27)
[2022-10-26] MEDS: ATORVASTATIN CALCIUM 10 MG TABLET PO SCH (08:49)
[2022-10-26] MEDS: AmLODIPine BESYLATE 5 MG TABLET PO SCH (08:49)
[2022-10-26 12:49] VITALS: RESP 18; TEMP 97.6
[2022-10-26 16:31] VITALS: RESP 18; TEMP 98
[2022-10-26 17:36] LABS: GLUCOMETER DEV NAME(LOC) 3EX.2; GLUCOSE,POINT OF CARE 119 MG/DL (70-110)
[2022-10-26 19:06] LABS: COVID AG,FIA SOURCE NASAL SWAB
[2022-10-26 19:32] LABS: SARS-COV2 (COVID) ANTIGEN,FIA Positive (Negative)
[2022-10-26 20:06] VITALS: BP 128/81; PULSE 84; RESP 18; TEMP 97.4
[2022-10-26] MEDS ORDERED: GuaiFENesin/D-METHORPHAN [SUGAR-FREE] 200-20MG/10 ML SYRUP UDCUP PO PRN (21:15)
[2022-10-26] MEDS ORDERED: SODIUM CHLORIDE 0.65% 44 ML NASAL SPRAY NASAL PRN (21:15)
[2022-10-26] MEDS ORDERED: BENZOCAINE/MENTHOL LOZENGE PO PRN (21:15)
[2022-10-26] MEDS: ZOLPIDEM TARTRATE 10 MG TABLET PO PRN (21:54)
[2022-10-27 00:02] VITALS: RESP 18
[2022-10-27 04:01] VITALS: RESP 18
[2022-10-27] MEDS: MetFORMIN HCL 500 MG TABLET PO SCH ×2 (06:35→17:06)
[2022-10-27 06:41] LABS: GLUCOMETER DEV NAME(LOC) 3EX.2; GLUCOSE,POINT OF CARE 96 MG/DL (70-110)
[2022-10-27 08:04] VITALS: BP 125/59; PULSE 66; RESP 18; TEMP 98.1
[2022-10-27] MEDS: DIVALPROEX SODIUM 500 MG DR TABLET PO SCH ×2 (08:57→20:02)
[2022-10-27] MEDS: AmLODIPine BESYLATE 5 MG TABLET PO SCH (08:57)
[2022-10-27] MEDS: ATORVASTATIN CALCIUM 10 MG TABLET PO SCH (08:57)
[2022-10-27 12:36] VITALS: RESP 18; TEMP 98.6
[2022-10-27 16:25] VITALS: RESP 17; TEMP 98.8
[2022-10-27 16:56] LABS: GLUCOMETER DEV NAME(LOC) 3EX.2; GLUCOSE,POINT OF CARE 103 MG/DL (70-110)
[2022-10-27 20:01] VITALS: BP 122/70; PULSE 68; RESP 18; TEMP 97.9
[2022-10-27] MEDS: ZOLPIDEM TARTRATE 10 MG TABLET PO PRN (21:42)
[2022-10-27] MEDS: LORazepam 2 MG TABLET PO PRN (21:43)
[2022-10-28 00:09] VITALS: RESP 18
[2022-10-28 04:11] VITALS: RESP 18
[2022-10-28] MEDS: MetFORMIN HCL 500 MG TABLET PO SCH ×2 (06:31→16:49)
[2022-10-28 06:41] LABS: GLUCOMETER DEV NAME(LOC) 3EX.2; GLUCOSE,POINT OF CARE 130 MG/DL (70-110)
[2022-10-28] MEDS: AmLODIPine BESYLATE 5 MG TABLET PO SCH (08:54)
[2022-10-28] MEDS: ATORVASTATIN CALCIUM 10 MG TABLET PO SCH (08:54)
[2022-10-28] MEDS: DIVALPROEX SODIUM 500 MG DR TABLET PO SCH ×2 (08:54→20:30)
[2022-10-28 09:25] VITALS: BP 118/69; PULSE 81; RESP 17; TEMP 97.7
[2022-10-28 12:28] VITALS: TEMP 98.3
[2022-10-28 16:13] VITALS: TEMP 98.6
[2022-10-28 17:06] LABS: GLUCOMETER DEV NAME(LOC) 3EX.2; GLUCOSE,POINT OF CARE 140 MG/DL (70-110)
[2022-10-29] MEDS: MetFORMIN HCL 500 MG TABLET PO SCH ×2 (06:45→17:36)
[2022-10-29 06:50] LABS: GLUCOMETER DEV NAME(LOC) 3EX.2; GLUCOSE,POINT OF CARE 89 MG/DL (70-110)
[2022-10-29] MEDS: ATORVASTATIN CALCIUM 10 MG TABLET PO SCH (08:37)
[2022-10-29] MEDS: AmLODIPine BESYLATE 5 MG TABLET PO SCH (08:37)
[2022-10-29] MEDS: DIVALPROEX SODIUM 500 MG DR TABLET PO SCH ×2 (08:37→21:05)
[2022-10-29 08:44] VITALS: BP 126/69; PULSE 79; RESP 18; TEMP 97.1
[2022-10-29 12:00] VITALS: BP 122/78; PULSE 81; RESP 18; TEMP 97.1
[2022-10-29 16:06] VITALS: RESP 18; TEMP 98.6
[2022-10-29 16:36] LABS: GLUCOMETER DEV NAME(LOC) 3EX.2; GLUCOSE,POINT OF CARE 109 MG/DL (70-110)
[2022-10-29 20:00] VITALS: BP 129/66; PULSE 57; RESP 18; TEMP 97.4
[2022-10-29] MEDS: ZOLPIDEM TARTRATE 10 MG TABLET PO PRN (21:06)
[2022-10-30 00:55] VITALS: RESP 18; TEMP 97.2
[2022-10-30 04:20] VITALS: RESP 18; TEMP 97.6
[2022-10-30 06:31] LABS: GLUCOMETER DEV NAME(LOC) 3EX.2; GLUCOSE,POINT OF CARE 97 MG/DL (70-110)
[2022-10-30] MEDS: MetFORMIN HCL 500 MG TABLET PO SCH ×2 (06:37→16:43)
[2022-10-30] MEDS: DIVALPROEX SODIUM 500 MG DR TABLET PO SCH ×2 (08:33→21:04)
[2022-10-30] MEDS: ATORVASTATIN CALCIUM 10 MG TABLET PO SCH (08:33)
[2022-10-30] MEDS: AmLODIPine BESYLATE 5 MG TABLET PO SCH (08:33)
[2022-10-30 08:41] VITALS: BP 122/72; PULSE 70; RESP 18; TEMP 98.9
[2022-10-30 12:22] VITALS: RESP 18; TEMP 98.4
[2022-10-30 16:27] VITALS: RESP 18; TEMP 98.2
[2022-10-30 17:01] LABS: GLUCOMETER DEV NAME(LOC) 3EX.2; GLUCOSE,POINT OF CARE 140 MG/DL (70-110)
[2022-10-30 20:16] VITALS: BP 126/69; PULSE 68; RESP 18; TEMP 98.5
[2022-10-30] MEDS: ZOLPIDEM TARTRATE 10 MG TABLET PO PRN (21:04)
[2022-10-31 05:42] VITALS: RESP 19; TEMP 98.1
[2022-10-31 06:40] VITALS: RESP 18; TEMP 97.5
[2022-10-31 06:56] LABS: GLUCOMETER DEV NAME(LOC) 3EX.2; GLUCOSE,POINT OF CARE 98 MG/DL (70-110)
[2022-10-31] MEDS: MetFORMIN HCL 500 MG TABLET PO SCH ×2 (06:57→16:37)
[2022-10-31 08:08] VITALS: BP 115/61; PULSE 70; RESP 18; TEMP 97.9
[2022-10-31] MEDS: DIVALPROEX SODIUM 500 MG DR TABLET PO SCH ×2 (08:23→21:28)
[2022-10-31] MEDS: AmLODIPine BESYLATE 5 MG TABLET PO SCH (08:23)
[2022-10-31] MEDS: CloNIDine 0.1 MG/24 HOUR PATCH TD SCH (08:24)
[2022-10-31] MEDS: ATORVASTATIN CALCIUM 10 MG TABLET PO SCH (08:24)
[2022-10-31 12:25] VITALS: RESP 18; TEMP 98.2
[2022-10-31 16:34] VITALS: RESP 18; TEMP 98.4
[2022-10-31 17:07] LABS: GLUCOMETER DEV NAME(LOC) 3EX.2; GLUCOSE,POINT OF CARE 102 MG/DL (70-110)
[2022-10-31 20:22] VITALS: BP 143/70; PULSE 87; RESP 18; TEMP 98
[2022-10-31] MEDS: ZOLPIDEM TARTRATE 10 MG TABLET PO PRN (21:28)
[2022-11-01 00:13] VITALS: RESP 17; TEMP 97.9
[2022-11-01 05:09] VITALS: RESP 18; TEMP 97.8
[2022-11-01 06:46] LABS: GLUCOMETER DEV NAME(LOC) 3EX.2; GLUCOSE,POINT OF CARE 96 MG/DL (70-110)
[2022-11-01] MEDS: MetFORMIN HCL 500 MG TABLET PO SCH ×2 (07:21→17:02)
[2022-11-01 08:11] VITALS: BP 113/69; PULSE 86; RESP 17; TEMP 97.9
[2022-11-01] MEDS: AmLODIPine BESYLATE 5 MG TABLET PO SCH (09:12)
[2022-11-01] MEDS: ATORVASTATIN CALCIUM 10 MG TABLET PO SCH (09:12)
[2022-11-01] MEDS: DIVALPROEX SODIUM 500 MG DR TABLET PO SCH ×2 (09:12→21:11)
[2022-11-01 11:52] LABS: COVID AG,FIA SOURCE NASAL SWAB
[2022-11-01 12:10] VITALS: RESP 18; TEMP 97.6
[2022-11-01 12:30] LABS: SARS-COV2 (COVID) ANTIGEN,FIA Negative (Negative)
[2022-11-01 17:11] LABS: GLUCOMETER DEV NAME(LOC) 3EX.2; GLUCOSE,POINT OF CARE 119 MG/DL (70-110)
[2022-11-01 17:14] VITALS: RESP 18; TEMP 97.9
[2022-11-01 20:00] VITALS: BP 146/76; PULSE 64; RESP 18; TEMP 98
[2022-11-01] MEDS: ZOLPIDEM TARTRATE 10 MG TABLET PO PRN (21:11)
[2022-11-01 21:36] LABS: GLUCOMETER DEV NAME(LOC) 3EX.2; GLUCOSE,POINT OF CARE 124 MG/DL (70-110)
[2022-11-02 01:40] VITALS: RESP 18
[2022-11-02 04:12] VITALS: RESP 18
[2022-11-02 06:16] LABS: GLUCOMETER DEV NAME(LOC) 3EX.2; GLUCOSE,POINT OF CARE 110 MG/DL (70-110)
[2022-11-02] MEDS: MetFORMIN HCL 500 MG TABLET PO SCH ×2 (07:02→16:54)
[2022-11-02 09:01] VITALS: BP 110/69; PULSE 64; RESP 18; TEMP 97.7
[2022-11-02] MEDS: DIVALPROEX SODIUM 500 MG DR TABLET PO SCH ×2 (09:16→20:02)
[2022-11-02] MEDS: AmLODIPine BESYLATE 5 MG TABLET PO SCH (09:16)
[2022-11-02] MEDS: ATORVASTATIN CALCIUM 10 MG TABLET PO SCH (09:16)
[2022-11-02 12:13] VITALS: RESP 18; TEMP 97.9
[2022-11-02] MEDS: LORazepam 2 MG TABLET PO PRN (14:55)
[2022-11-02 17:16] LABS: GLUCOMETER DEV NAME(LOC) 3EX.2; GLUCOSE,POINT OF CARE 147 MG/DL (70-110)
[2022-11-02 18:05] VITALS: RESP 18; TEMP 97.8
[2022-11-02] MEDS: ZOLPIDEM TARTRATE 10 MG TABLET PO PRN (20:02)
[2022-11-02 22:32] VITALS: RESP 18; TEMP 97.5
[2022-11-03 00:20] VITALS: RESP 18
[2022-11-03 05:40] VITALS: RESP 18
[2022-11-03] MEDS: MetFORMIN HCL 500 MG TABLET PO SCH ×2 (06:31→16:49)
[2022-11-03 06:41] LABS: GLUCOMETER DEV NAME(LOC) 3EX.2; GLUCOSE,POINT OF CARE 95 MG/DL (70-110)
[2022-11-03 08:06] VITALS: BP 129/77; PULSE 64; RESP 18; TEMP 97.6
[2022-11-03] MEDS: DIVALPROEX SODIUM 500 MG DR TABLET PO SCH ×2 (08:24→20:03)
[2022-11-03] MEDS: AmLODIPine BESYLATE 5 MG TABLET PO SCH (08:24)
[2022-11-03] MEDS: ATORVASTATIN CALCIUM 10 MG TABLET PO SCH (08:24)
[2022-11-03 12:23] VITALS: RESP 18; TEMP 97.6
[2022-11-03 17:02] VITALS: RESP 18; TEMP 97.8
[2022-11-03 17:06] LABS: GLUCOMETER DEV NAME(LOC) 3EX.2; GLUCOSE,POINT OF CARE 155 MG/DL (70-110)
[2022-11-03] MEDS: ZOLPIDEM TARTRATE 10 MG TABLET PO PRN (20:04)
[2022-11-03 21:01] LABS: GLUCOMETER DEV NAME(LOC) 3EX.2; GLUCOSE,POINT OF CARE 359 MG/DL (70-110)
[2022-11-03 21:19] VITALS: BP 122/62; PULSE 65; RESP 18; TEMP 98
[2022-11-04 00:11] VITALS: RESP 16
[2022-11-04 04:39] VITALS: RESP 16
[2022-11-04 06:21] LABS: GLUCOMETER DEV NAME(LOC) 3EX.2; GLUCOSE,POINT OF CARE 109 MG/DL (70-110)
[2022-11-04] MEDS: MetFORMIN HCL 500 MG TABLET PO SCH ×2 (06:31→16:43)
[2022-11-04 08:01] VITALS: BP 149/77; PULSE 54; RESP 16; TEMP 97.5
[2022-11-04] MEDS: AmLODIPine BESYLATE 5 MG TABLET PO SCH (08:16)
[2022-11-04] MEDS: DIVALPROEX SODIUM 500 MG DR TABLET PO SCH ×2 (08:16→20:32)
[2022-11-04] MEDS: ATORVASTATIN CALCIUM 10 MG TABLET PO SCH (08:16)
[2022-11-04 12:17] VITALS: TEMP 97.6
[2022-11-04 16:14] VITALS: TEMP 97.8
[2022-11-04 17:10] LABS: GLUCOMETER DEV NAME(LOC) 3EX.2; GLUCOSE,POINT OF CARE 178 MG/DL (70-110)
[2022-11-04] MEDS: ZOLPIDEM TARTRATE 10 MG TABLET PO PRN (20:32)
[2022-11-04 21:14] VITALS: RESP 18; TEMP 98
[2022-11-05 00:06] VITALS: RESP 18
[2022-11-05 04:12] VITALS: RESP 18
[2022-11-05 06:01] LABS: GLUCOMETER DEV NAME(LOC) 3EX.2; GLUCOSE,POINT OF CARE 95 MG/DL (70-110)
[2022-11-05] MEDS: MetFORMIN HCL 500 MG TABLET PO SCH ×2 (06:35→17:13)
[2022-11-05 08:43] VITALS: BP 120/69; RESP 17; TEMP 97.5
[2022-11-05] MEDS: DIVALPROEX SODIUM 500 MG DR TABLET PO SCH ×2 (08:57→21:09)
[2022-11-05] MEDS: ATORVASTATIN CALCIUM 10 MG TABLET PO SCH (08:57)
[2022-11-05] MEDS: AmLODIPine BESYLATE 5 MG TABLET PO SCH (08:57)
[2022-11-05 12:15] VITALS: TEMP 97.9
[2022-11-05 16:41] LABS: GLUCOMETER DEV NAME(LOC) 3EX.2; GLUCOSE,POINT OF CARE 137 MG/DL (70-110)
[2022-11-05 16:42] VITALS: TEMP 97.7
[2022-11-05 20:04] VITALS: BP 145/68; PULSE 75; RESP 18; TEMP 97.8
[2022-11-05] MEDS: ZOLPIDEM TARTRATE 10 MG TABLET PO PRN (21:09)
[2022-11-06 00:52] VITALS: RESP 17; TEMP 97.7
[2022-11-06 04:09] VITALS: RESP 18; TEMP 97.8
[2022-11-06 06:26] LABS: GLUCOMETER DEV NAME(LOC) 3EX.2; GLUCOSE,POINT OF CARE 119 MG/DL (70-110)
[2022-11-06] MEDS: MetFORMIN HCL 500 MG TABLET PO SCH ×2 (07:01→17:03)
[2022-11-06 08:18] VITALS: BP 131/80; PULSE 75; RESP 17; TEMP 97.7
[2022-11-06] MEDS: ATORVASTATIN CALCIUM 10 MG TABLET PO SCH (08:48)
[2022-11-06] MEDS: DIVALPROEX SODIUM 500 MG DR TABLET PO SCH ×2 (08:48→20:22)
[2022-11-06] MEDS: AmLODIPine BESYLATE 5 MG TABLET PO SCH (08:48)
[2022-11-06 12:31] VITALS: TEMP 98
[2022-11-06 16:06] VITALS: TEMP 98.3
[2022-11-06 17:27] LABS: GLUCOMETER DEV NAME(LOC) 3EX.2; GLUCOSE,POINT OF CARE 126 MG/DL (70-110)
[2022-11-06 20:08] VITALS: BP 120/82; PULSE 83; RESP 19; TEMP 97.6
[2022-11-06] MEDS: ZOLPIDEM TARTRATE 10 MG TABLET PO PRN (21:18)
[2022-11-07 01:20] VITALS: RESP 18; TEMP 98
[2022-11-07 06:31] LABS: GLUCOMETER DEV NAME(LOC) 3EX.2; GLUCOSE,POINT OF CARE 93 MG/DL (70-110)
[2022-11-07] MEDS: MetFORMIN HCL 500 MG TABLET PO SCH ×2 (06:34→16:35)
[2022-11-07] MEDS: AmLODIPine BESYLATE 5 MG TABLET PO SCH (08:16)
[2022-11-07] MEDS: DIVALPROEX SODIUM 500 MG DR TABLET PO SCH ×2 (08:16→21:05)
[2022-11-07] MEDS: ATORVASTATIN CALCIUM 10 MG TABLET PO SCH (08:16)
[2022-11-07] MEDS: CloNIDine 0.1 MG/24 HOUR PATCH TD SCH (08:26)
[2022-11-07 08:56] VITALS: BP 157/70; PULSE 55; RESP 16; TEMP 97.6
[2022-11-07 13:20] VITALS: RESP 17; TEMP 98
[2022-11-07 16:14] VITALS: RESP 18; TEMP 97.9
[2022-11-07 16:56] LABS: GLUCOMETER DEV NAME(LOC) 3EX.2; GLUCOSE,POINT OF CARE 226 MG/DL (70-110)
[2022-11-07 20:46] VITALS: BP 160/74; PULSE 79; RESP 18; TEMP 98.3
[2022-11-07] MEDS: ZOLPIDEM TARTRATE 10 MG TABLET PO PRN (21:05)
[2022-11-08] VITALS (7 sets, daily range): BP systolic 112–116; BP diastolic 70–74; PULSE 57–60; RESP 16–18; TEMP 97.6–98.1
[2022-11-08 06:26] LABS: GLUCOMETER DEV NAME(LOC) 3EX.2; GLUCOSE,POINT OF CARE 111 MG/DL (70-110)
[2022-11-08] MEDS: MetFORMIN HCL 500 MG TABLET PO SCH ×2 (06:43→16:34)
[2022-11-08] MEDS: ATORVASTATIN CALCIUM 10 MG TABLET PO SCH (08:17)
[2022-11-08] MEDS: DIVALPROEX SODIUM 500 MG DR TABLET PO SCH ×2 (08:17→20:36)
[2022-11-08] MEDS: AmLODIPine BESYLATE 5 MG TABLET PO SCH (08:17)
[2022-11-08 16:51] LABS: GLUCOMETER DEV NAME(LOC) 3EX.2; GLUCOSE,POINT OF CARE 156 MG/DL (70-110)
[2022-11-08] MEDS: ZOLPIDEM TARTRATE 10 MG TABLET PO PRN (21:01)
[2022-11-09 00:49] VITALS: RESP 17; TEMP 97.8
[2022-11-09 05:22] VITALS: RESP 18; TEMP 97.9
[2022-11-09 06:11] LABS: GLUCOMETER DEV NAME(LOC) 3EX.2; GLUCOSE,POINT OF CARE 114 MG/DL (70-110)
[2022-11-09] MEDS: MetFORMIN HCL 500 MG TABLET PO SCH ×2 (06:46→17:04)
[2022-11-09] MEDS: ATORVASTATIN CALCIUM 10 MG TABLET PO SCH (08:28)
[2022-11-09] MEDS: AmLODIPine BESYLATE 5 MG TABLET PO SCH (08:28)
[2022-11-09] MEDS: DIVALPROEX SODIUM 500 MG DR TABLET PO SCH ×2 (08:28→20:27)
[2022-11-09 13:50] VITALS: TEMP 98
[2022-11-09 16:46] LABS: GLUCOMETER DEV NAME(LOC) 3EX.2; GLUCOSE,POINT OF CARE 141 MG/DL (70-110)
[2022-11-09 18:21] VITALS: TEMP 98.6
[2022-11-09 20:00] VITALS: BP 123/63; PULSE 65; RESP 18; TEMP 97.8
[2022-11-09] MEDS: ZOLPIDEM TARTRATE 10 MG TABLET PO PRN (21:23)
[2022-11-10 00:05] VITALS: TEMP 98.2
[2022-11-10 04:07] VITALS: RESP 18
[2022-11-10 06:16] LABS: GLUCOMETER DEV NAME(LOC) 3EX.2; GLUCOSE,POINT OF CARE 97 MG/DL (70-110)
[2022-11-10] MEDS: MetFORMIN HCL 500 MG TABLET PO SCH ×2 (06:56→17:10)
[2022-11-10] MEDS: DIVALPROEX SODIUM 500 MG DR TABLET PO SCH ×2 (08:06→20:29)
[2022-11-10] MEDS: ATORVASTATIN CALCIUM 10 MG TABLET PO SCH (08:06)
[2022-11-10] MEDS: AmLODIPine BESYLATE 5 MG TABLET PO SCH (08:06)
[2022-11-10 08:15] VITALS: BP 147/70; PULSE 69; RESP 18; TEMP 96.9
[2022-11-10 12:53] VITALS: TEMP 98.1
[2022-11-10 16:10] VITALS: RESP 18; TEMP 97.7
[2022-11-10 16:56] LABS: GLUCOMETER DEV NAME(LOC) 3EX.2; GLUCOSE,POINT OF CARE 144 MG/DL (70-110)
[2022-11-10 20:30] VITALS: BP 137/74; PULSE 75; RESP 18; TEMP 97.8
[2022-11-10] MEDS: ZOLPIDEM TARTRATE 10 MG TABLET PO PRN (21:03)
[2022-11-11] VITALS (7 sets, daily range): BP systolic 130–140; BP diastolic 69–79; PULSE 67–86; RESP 16–18; TEMP 97–98
[2022-11-11 06:01] LABS: GLUCOMETER DEV NAME(LOC) 3EX.2; GLUCOSE,POINT OF CARE 93 MG/DL (70-110)
[2022-11-11] MEDS: MetFORMIN HCL 500 MG TABLET PO SCH ×2 (06:45→17:15)
[2022-11-11] MEDS: DIVALPROEX SODIUM 500 MG DR TABLET PO SCH ×2 (08:07→21:01)
[2022-11-11] MEDS: ATORVASTATIN CALCIUM 10 MG TABLET PO SCH (08:07)
[2022-11-11] MEDS: AmLODIPine BESYLATE 5 MG TABLET PO SCH (08:07)
[2022-11-11 16:36] LABS: GLUCOMETER DEV NAME(LOC) 3EX.2; GLUCOSE,POINT OF CARE 124 MG/DL (70-110)
[2022-11-11 18:48] LABS: COVID AG,FIA SOURCE NASAL SWAB
[2022-11-11 19:07] LABS: SARS-COV2 (COVID) ANTIGEN,FIA Negative (Negative)
[2022-11-11] MEDS: ZOLPIDEM TARTRATE 10 MG TABLET PO PRN (21:01)
[2022-11-12] MEDS: LORazepam 2 MG TABLET PO PRN ×2 (00:38→22:46)
[2022-11-12 06:05] VITALS: RESP 19; TEMP 97.9
[2022-11-12] MEDS: MetFORMIN HCL 500 MG TABLET PO SCH ×2 (07:01→16:33)
[2022-11-12 07:16] LABS: GLUCOMETER DEV NAME(LOC) 3EX.2; GLUCOSE,POINT OF CARE 84 MG/DL (70-110)
[2022-11-12 08:09] VITALS: BP 128/75; PULSE 63; RESP 16; TEMP 97.2
[2022-11-12] MEDS: DIVALPROEX SODIUM 500 MG DR TABLET PO SCH ×2 (08:25→21:12)
[2022-11-12] MEDS: AmLODIPine BESYLATE 5 MG TABLET PO SCH (08:25)
[2022-11-12] MEDS: ATORVASTATIN CALCIUM 10 MG TABLET PO SCH (08:25)
[2022-11-12] MEDS: PALIPERIDONE PALMITATE 234 MG/1.5 ML SYRINGE IM SCH (08:39)
[2022-11-12 12:25] VITALS: RESP 19; TEMP 97.8
[2022-11-12 16:11] VITALS: RESP 18; TEMP 98.2
[2022-11-12 17:06] LABS: GLUCOMETER DEV NAME(LOC) 3EX.2; GLUCOSE,POINT OF CARE 145 MG/DL (70-110)
[2022-11-12 20:25] VITALS: BP 132/76; PULSE 70; RESP 18; TEMP 97.8
[2022-11-12] MEDS: ZOLPIDEM TARTRATE 10 MG TABLET PO PRN (21:12)
[2022-11-13 00:09] VITALS: RESP 18; TEMP 97.7
[2022-11-13 04:59] VITALS: RESP 18
[2022-11-13 06:28] LABS: GLUCOMETER DEV NAME(LOC) 3EX.2; GLUCOSE,POINT OF CARE 102 MG/DL (70-110)
[2022-11-13] MEDS: MetFORMIN HCL 500 MG TABLET PO SCH ×2 (06:47→17:28)
[2022-11-13] MEDS: DIVALPROEX SODIUM 500 MG DR TABLET PO SCH ×2 (08:12→20:16)
[2022-11-13] MEDS: ATORVASTATIN CALCIUM 10 MG TABLET PO SCH (08:12)
[2022-11-13] MEDS: AmLODIPine BESYLATE 5 MG TABLET PO SCH (08:12)
[2022-11-13 08:28] VITALS: BP 135/84; PULSE 98; RESP 18; TEMP 97.8
[2022-11-13 12:23] VITALS: TEMP 98
[2022-11-13 16:13] VITALS: RESP 18; TEMP 97.5
[2022-11-13 17:41] LABS: GLUCOMETER DEV NAME(LOC) 3EX.2; GLUCOSE,POINT OF CARE 127 MG/DL (70-110)
[2022-11-13 20:00] VITALS: BP 117/74; PULSE 70; RESP 18; TEMP 97.8
[2022-11-13] MEDS: ZOLPIDEM TARTRATE 10 MG TABLET PO PRN (21:20)
[2022-11-14] MEDS: MetFORMIN HCL 500 MG TABLET PO SCH ×2 (06:32→16:22)
[2022-11-14 06:46] LABS: GLUCOMETER DEV NAME(LOC) 3EX.2; GLUCOSE,POINT OF CARE 92 MG/DL (70-110)
[2022-11-14] MEDS: ATORVASTATIN CALCIUM 10 MG TABLET PO SCH (08:30)
[2022-11-14] MEDS: AmLODIPine BESYLATE 5 MG TABLET PO SCH (08:30)
[2022-11-14] MEDS: CloNIDine 0.1 MG/24 HOUR PATCH TD SCH (08:30)
[2022-11-14] MEDS: DIVALPROEX SODIUM 500 MG DR TABLET PO SCH ×2 (08:30→21:02)
[2022-11-14 09:12] VITALS: BP 126/68; PULSE 73; RESP 16; TEMP 97.1
[2022-11-14 17:31] LABS: GLUCOMETER DEV NAME(LOC) 3EX.2; GLUCOSE,POINT OF CARE 144 MG/DL (70-110)
[2022-11-14 20:10] VITALS: BP 124/77; PULSE 74; RESP 18; TEMP 98.1
[2022-11-14] MEDS: ZOLPIDEM TARTRATE 10 MG TABLET PO PRN (21:03)
[2022-11-15 07:01] LABS: GLUCOMETER DEV NAME(LOC) 3EX.2; GLUCOSE,POINT OF CARE 97 MG/DL (70-110)
[2022-11-15] MEDS: MetFORMIN HCL 500 MG TABLET PO SCH ×2 (07:03→17:03)
[2022-11-15 08:16] VITALS: BP 130/70; PULSE 86; RESP 17; TEMP 98
[2022-11-15] MEDS: DIVALPROEX SODIUM 500 MG DR TABLET PO SCH ×2 (09:06→21:17)
[2022-11-15] MEDS: AmLODIPine BESYLATE 5 MG TABLET PO SCH (09:06)
[2022-11-15] MEDS: ATORVASTATIN CALCIUM 10 MG TABLET PO SCH (09:06)
[2022-11-15 18:02] LABS: GLUCOMETER DEV NAME(LOC) 3EX.2; GLUCOSE,POINT OF CARE 153 MG/DL (70-110)
[2022-11-15 20:33] VITALS: BP 114/65; PULSE 67; RESP 18; TEMP 97.1
[2022-11-15] MEDS: ZOLPIDEM TARTRATE 10 MG TABLET PO PRN (21:17)
[2022-11-16 05:31] LABS: GLUCOMETER DEV NAME(LOC) 3EX.2; GLUCOSE,POINT OF CARE 106 MG/DL (70-110)
[2022-11-16] MEDS: MetFORMIN HCL 500 MG TABLET PO SCH ×2 (06:35→17:24)
[2022-11-16] MEDS: ATORVASTATIN CALCIUM 10 MG TABLET PO SCH (08:10)
[2022-11-16] MEDS: AmLODIPine BESYLATE 5 MG TABLET PO SCH (08:11)
[2022-11-16] MEDS: DIVALPROEX SODIUM 500 MG DR TABLET PO SCH ×2 (08:11→21:02)
[2022-11-16 09:08] VITALS: BP 103/65; PULSE 58; RESP 18; TEMP 97.6
[2022-11-16] MEDS ORDERED: METF-1211 PO (11:53)
[2022-11-16] MEDS ORDERED: ATOR10TA69 PO (11:53)
[2022-11-16] MEDS ORDERED: DIVA-112 PO (11:53)
[2022-11-16] MEDS ORDERED: AMLO-257 PO (11:53)
[2022-11-16 16:46] LABS: GLUCOMETER DEV NAME(LOC) 3EX.2; GLUCOSE,POINT OF CARE 128 MG/DL (70-110)
[2022-11-16 20:52] VITALS: BP 147/75; PULSE 86; RESP 18; TEMP 97.6
[2022-11-16] MEDS: ZOLPIDEM TARTRATE 10 MG TABLET PO PRN (21:02)
[2022-11-17 05:36] LABS: GLUCOMETER DEV NAME(LOC) 3EX.2; GLUCOSE,POINT OF CARE 87 MG/DL (70-110)
[2022-11-17] MEDS: MetFORMIN HCL 500 MG TABLET PO SCH (06:32)
[2022-11-17 08:00] VITALS: BP 133/78; PULSE 75; RESP 18; TEMP 97.1
[2022-11-17] MEDS: ATORVASTATIN CALCIUM 10 MG TABLET PO SCH (08:07)
[2022-11-17] MEDS: DIVALPROEX SODIUM 500 MG DR TABLET PO SCH (08:07)
[2022-11-17] MEDS: AmLODIPine BESYLATE 5 MG TABLET PO SCH (08:07)
== END 2022-11-17 14:15 | DRG 885 ==
LOC: EMS 10:36 → 3EC 06-11 19:45
PROVIDERS: ADMIT Psychiatry & Neurology Psychiatry; ATTEND Psychiatry & Neurology Psychiatry
DX: F20.0 Paranoid schizophrenia (principal); Z59.00 Homelessness unspecified; I10 Essential (primary) hypertension; E87.6 Hypokalemia; Z20.822 Contact with and (suspected) exposure to COVID-19; E11.9 Type 2 diabetes mellitus without complications; E78.5 Hyperlipidemia, unspecified; E03.9 Hypothyroidism, unspecified; Z79.899 Other long term (current) drug therapy; Z81.8 Family history of other mental and behavioral disorders; Z88.0 Allergy status to penicillin; Z88.2 Allergy status to sulfonamides; Z91.148 Patient's other noncompliance with medication regimen for other reason; Z91.81 History of falling
CPT/HCPCS: 70450; 80048; 80053; 80061; 80164; 80307; 81001; 81002; 82962; 83036; 83735; 84132; 84443; 85025; 87086; 87186; 93005; 97161; 97166; 97530; 97535; 99291; G0480; J1200; J1630; J2060